=== PATIENT | male | born 1955 | race Caucasian/White ===

== ENCOUNTER 2016-06-27 03:05 | Inpatient (IN) | payer BC ==
[2016-06-27] MEDS ORDERED: DILTIAZEM HCL INJ 25 MG/5 ML VIAL IV ONE ×2 (03:20→04:01)
[2016-06-27] MEDS ORDERED: DILTIAZEM HCL/D5W 125 ML IV PRN ×2 (03:20→07:31)
--- NOTE | 2016-06-27 03:25 | ER Document Report ---
ED General - General Stated Complaint: CHEST PAIN Time Seen by Provider: 06/27/16 03:15 Notes: Patient is a 61-year-old male who approximately 45 minutes ago started having palpitations. He does have a history of atrial fibrillation. He does take Xarelto. He is on metoprolol as well as lisinopril. He denies history of coronary disease. He denies history of cardiac stents. He denies any chest pain. No shortness of breath. No abdominal pain. No fevers. No vomiting. No other complaints at this time. TRAVEL OUTSIDE OF THE [place] IN LAST 30 DAYS: No - Related Data Allergies/Adverse Reactions: pineapple [Pineapple] Allergy (Verified 02/17/14 14:16) warfarin sodium [From Coumadin] Adverse Reaction (Verified 02/17/14 14:16) Home Medications: Current Home Medications Lisinopril 20 mg PO DAILY 06/27/16 [History] Rivaroxaban [Xarelto] 1 tab PO DAILY 06/27/16 [History] Past Medical History - Social History Smoking Status: Unknown if Ever Smoked Frequency of alcohol use: None Drug Abuse: None Family History: Reviewed & Not Pertinent, Other - Review of the history suggests there may be a family history of clotting disorders - Past Medical History Cardiac Medical History: Reports: Hx Atrial Fibrillation, Hx Hypercholesterolemia, Hx Hypertension GI Medical History: Reports: Hx Hepatitis - Hepatitis A Musculoskeltal Medical History: Reports Hx Arthritis Infectious Medical History: Reports: Hx Hepatitis - Hepatitis A Past Surgical History: Reports: Hx Orthopedic Surgery - Bilateral hips, knees, ankles, and elbow, Hx Tonsillectomy - Immunizations Hx Diphtheria, Pertussis, Tetanus Vaccination: Yes Review of Systems - Review of Systems Notes: My Normal Review Basic REVIEW OF SYSTEMS: CONSTITUTIONAL : Denies fever, chills, or sweats. Denies recent illness. EENT: Denies eye, ear, throat, or mouth pain or symptoms. Denies nasal or sinus congestion. CARDIOVASCULAR: Denies chest pain. Has atrial fibrillation with RVR. RESPIRATORY: Denies cough, cold, or chest congestion. Denies shortness of breath, difficulty breathing, or wheezing. GASTROINTESTINAL: Denies abdominal pain. Denies nausea, vomiting, or diarrhea. Denies constipation. Last BM: On Xarelto. MUSCULOSKELETAL: Denies neck or back pain or joint pain or swelling. SKIN: Denies rash or skin lesions. HEMATOLOGIC : On Xarelto NEUROLOGICAL: Denies altered mental status or loss of consciousness. Denies headache. Denies weakness or paralysis or loss of use of either side. Denies problems with gait or speech. Denies sensory or motor loss. ALL OTHER SYSTEMS REVIEWED AND NEGATIVE. Physical Exam - Vital signs Vitals: Resp BP Pulse Ox 18 145/92 H 96 06/27/16 03:40 06/27/16 03:40 06/27/16 03:40 - Notes Notes: General Appearance: Well nourished, alert, cooperative, no acute distress, no obvious discomfort. Vitals: reviewed, See vital signs table. Head: no swelling or tenderness to the head Eyes: PERRL, EOMI, Conjuctiva clear Mouth: No decreasd moisture Neck: Supple, no neck tenderness, No thyromegaly Lungs: No wheezing, No rales, No rhonci, No accessory muscle use, good air exchange bilaterally. Heart: Rapid rate, irregular rhythm, No murmur, no rub. A. fib with RVR on monitor. Abdomen: Normal BS, soft, No rigidity, No abdominal tenderness, No guarding, no rebound, no abdominal masses, no organomegaly Extremities: strength 5/5 in all extremities, good pulses in all extremities, no swelling or tenderness in the extremities, no edema. Skin: warm, dry, appropriate color, no rash Neuro: speech clear, oriented x 3, normal affect, responds appropriately to questions. Course - Vital Signs Vital signs: Temp Pulse Resp BP Pulse Ox 17 108/69 94 06/27/16 05:00 06/27/16 05:00 06/27/16 05:00 - Laboratory Result Diagrams: 06/27/16 03:22 06/27/16 03:22 Laboratory results interpreted by me: 06/27/16 06/27/16 06/27/16 03:22 03:22 04:01 RBC 3.92 L Hgb 7.4 L Hct 24.8 L MCV 63 L MCH 19.0 L MCHC 30.0 L RDW 19.1 H Chloride 111 H Carbon Dioxide 21 L BUN 26 H Glucose 129 H Crossmatch See Detail - EKG Interpretation by Me Additional EKG results interpreted by me: 06/27/16 03:22 It is reviewed and interpreted by me. EKG shows atrial fibrillation with a rate of [address] segment elevation. He does have some ST segment depression in the lateral precordial leads. QRS duration is within normal range. QTc interval is prolonged. Old EKG for comparison is from April 16, 2014 - Transfer of Care Notes: 06/27/16 05:42 Patient's hemoglobin came back low 7.4. His has noticed that he has been more pale-appearing recently. He has not noticed any blood in his stool. He has not had dark stools. Has not been vomiting blood. Has not noticed any blood in his urine. He is unsure exactly why his hemoglobin is low. I did perform a stool guaiac which was negative. Urine is pending. I did give him Cardizem. His heart rate was initially in the 160s and 70s. Cardizem brought his rate down to 140s. I have since given Lopressor and his rate is now in the 110s to 120s. Patient continues to deny any chest pain and continues to look very comfortable and stable. I have spoken with the hospitalist who agrees to admit the patient. Troponin is negative. Dictation of this chart was performed using voice recognition software; therefore, there may be some unintended grammatical errors. Critical Care Note - Critical Care Note Total time excluding time spent on procedures (mins): 40 Comments: Critical care time for this patient not including times spent on procedures was approximately 40 minutes due to frequent re-evaluations as well as management of Cardizem drip and management of his anemia and atrial fibrillation with rapid ventricular response. Discharge - Discharge Clinical Impression: Atrial fibrillation Qualifiers: Atrial fibrillation type: persistent Qualified Code(s): I48.1 - Persistent atrial fibrillation Anemia Qualifiers: Anemia type: unspecified type Qualified Code(s): D64.9 - Anemia, unspecified Condition: Stable Disposition: ADMITTED INPATIENT Admitting Provider: Hospitalist Unit Admitted: [facility], [place]
[2016-06-27 03:33] LABS: ABSOLUTE BASOPHILS # (AUTO) 0.1 10^3/uL (0.0-0.2); ABSOLUTE MONOCYTES (AUTO) 0.7 10^3/uL (0.1-1.4); ABSOLUTE NEUT (AUTO) 2.5 10^3/uL (1.7-8.2)
[2016-06-27 03:38] LABS: ABSOLUTE EOSINOPHILS # (AUTO) 0.3 10^3/uL (0.0-0.6); BASOPHILS % (AUTO) 1.5 % (0-2); EOSINOPHILS % (AUTO) 4.8 % (0-6); HEMATOCRIT 24.8 % (37.9-51.0); HGB HCT DIFFERENCE -2.6; LYMPHOCYTES % (AUTO) 36.2 % (13-45); MONOCYTES % (AUTO) 12.5 % (3-13); RED BLOOD COUNT 3.92 10^6/uL (4.35-5.55); RED CELL DISTRIBUTION WIDTH 19.1 % (11.5-14.0); WHITE BLOOD COUNT 5.7 10^3/uL (4.0-10.5)
[2016-06-27 03:46] LABS: ALANINE AMINOTRANSFERASE 50 U/L (21-72); ALBUMIN 4.1 g/dL (3.5-5.0); ALKALINE PHOSPHATASE 65 U/L (38-126); ANION GAP 12 (5-19); ASPARTATE AMINO TRANSFERASE 40 U/L (17-59); BILIRUBIN,DIRECT 0.4 mg/dL (0.0-0.4); BILIRUBIN,TOTAL 0.5 mg/dL (0.2-1.3); BLOOD UREA NITROGEN 26 mg/dL (7-20); CALCIUM 8.8 mg/dL (8.4-10.2); CARBON DIOXIDE 21 mmol/L (22-30); CHLORIDE 111 mmol/L (98-107); CREATINE KINASE 133 U/L (55-170); CREATININE RESULT 1.11 mg/dL (0.52-1.25); GLUCOSE 129 mg/dL (75-110); POTASSIUM 4.3 mmol/L (3.6-5.0); SODIUM 143.7 mmol/L (137-145); TOTAL PROTEIN 7.2 g/dL (6.3-8.2)
[2016-06-27] MEDS ORDERED: NORMAL SALINE 250 ML IV PRN (03:52)
[2016-06-27 03:55] LABS: HEMOGLOBIN 7.4 g/dL (13.5-17.0)
[2016-06-27 03:56] LABS: MEAN CORPUSCULAR VOLUME 63 fl (80-97)
[2016-06-27 03:57] LABS: ANISOCYTOSIS 2+; HYPOCHROMASIA 3+; MICROCYTOSIS 3+; OVALOCYTES 1+; POIKILOCYTOSIS 1+; POLYCHROMASIA SLIGHT; TARGET CELLS 1+; TEAR DROP CELLS SLIGHT
[2016-06-27 03:58] LABS: PLATELET CLUMPS PRESENT
[2016-06-27 04:00] LABS: TROPONIN I < 0.012 ng/mL
[2016-06-27] MEDS ORDERED: METOPROLOL TARTRATE PF/INJ 5 MG/5 ML SDV IV ONE (05:13)
[2016-06-27] MEDS ORDERED: MAGNESIUM HYDROXIDE SUSP 30 ML UDCUP PO PRN (07:31)
[2016-06-27] MEDS ORDERED: IPRATROPIUM/ALBUTEROL 0.5-2.5 MG/3 ML AMPUL NEB PRN (07:31)
[2016-06-27] MEDS ORDERED: ACETAMINOPHEN 325 MG TABLET PO PRN (07:35)
--- NOTE | 2016-06-27 07:53 | PDOC H&P ---
History of Present Illness Admission Date/PCP: 06/27/16 06:03 PCP [facility] Patient complains of: Palpitations History of Present Illness: JOVAN GRIDER JR is a 61 year old male with known underlying atrial fibrillation, on Xarelto for same, along with underlying hypertension, COPD, arthritis, and hyperlipidemia, who presents to the emergency room for evaluation of sudden onset of palpitations approximately 45 minutes prior to emergency room arrival. brought him to the emergency room. Was noted to be in atrial fibrillation with rapid ventricular response. Rate has been well controlled with combination of Cardizem bolus and drip, along with metoprolol. There has been no chest pain, shortness of breath, abdominal pain, fever chills , nausea or vomiting. No recent change in his medications. He is compliant with his medications. No history of myocardial infarction or congestive heart failure. No history of hematemesis, coffee-ground emesis, hematochezia or melena. Distant history of a negative colonoscopy. Distant history of bleeding peptic ulcer. Currently receiving a unit of packed red blood cells, as ordered by the emergency room physician. Initial diagnoses of atrial fibrillation in February 2014, when he was hospitalized on our service basically overnight. History and physical and discharge summary have been reviewed. Outpatient echocardiogram and stress test recommended, but due to financial considerations, patient did not follow-up with same. Prior to today, he has had no known recurrence of atrial fibrillation with rapid ventricular response. Currently resting quietly, without specific complaints other than being somewhat tired. Patient has been discussed with emergency room physician who evaluated the patient. . Laboratory results are listed in [facility] and are reviewed. X-ray summary results are listed below, with full report(s) reviewed. . EKG reviewed and compared to a tracing from April 162014. Social history/personal habits: . Has children. 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 No use of tobacco, alcohol, or illicit drugs. Allergies/adverse reactions are listed in [facility] and are reviewed. Home medications initially autopopulated into [facility] may not accurately reflect patient's true medications, dosages, and/or frequencies. radiologic technology program director to reconcile medications. Unfortunately, patient not completely certain of all his medications/dosages/ frequencies. REVIEW OF SYSTEMS: Constitutional: No fever or chills. Eyes: Wears glasses. ENT: No swallowing problems or complaints. Partial hearing loss. Pulmonary: No current complaints. Cardiovascular: See history and present illness. Gastrointestinal: No current complaints, including nausea or vomiting. Skin: No current complaints, including rashes. Hematologic: Easy bruising. Neurologic: No current complaints, including numbness or tingling. Musculoskeletal:Joint pain from arthritis. Psychiatric: Mild anxiety and depression; denies suicidal or homicidal ideation. Endocrine: No current complaints, including polyuria. Genitourinary: No current complaints, including dysuria. PHYSICAL EXAMINATION: 6 feet 4 inches tall. 116 kg. BMI 31.1 kg/m. Pulse 121 and slightly irregular. Blood pressure 114/79. 97% saturation on room air. Respirations are 16 and unlabored. Temperature 97.4. Slightly obese otherwise well-developed male appearing approximately his stated age. Pleasant awake alert and cooperative. No obvious distress other than somewhat anxious. Rather talkative gentleman. is present at his side; patient approves. Skin is warm and dry. No grossly obvious evidence of rash in areas of skin examined. No subcutaneous nodules palpated. ENT: Hearing grossly normal to normal conversation. Tongue midline on protrusion pink and slightly tacky. Eyes: No scleral icterus. Pupils equal and reactive to light at 4 mm. [place] conjunctivae. Neck is supple and nontender to gentle active range of motion and palpation. Midline trachea. No palpable thyroid nodule mass enlargement or tenderness. Lymphatic: No palpable cervical or clavicular nodes. Neck and lymphatic exams limited by patient body habitus. Psychiatric: Reasonable insight into acute and chronic medical issues. Oriented to time location and why here. Lungs: Auscultation reveals clear and equal breath sounds bilaterally. No use of accessory respiratory muscles. Cardiovascular: Heart slightly irregular rate and rhythm, without gallop murmur or rub. No carotid or abdominal aortic bruits. No ankle or pedal edema. Palpable dorsalis pedis pulses. Abdomen:soft somewhat obese nontender with positive bowel sounds. Unable to adequately evaluate abdomen for masses or organomegaly due to body habitus. Extremities: Feet are warm and dry. No calf tenderness to compression. No grossly obvious visual evidence of calf swelling. Gentle manipulation of lower extremities fails to reveal any obvious evidence of injury or instability to knees hips or ankles. Neurologic: Moves upper extremities grossly normally. Patellar reflexes absent. Absent Babinski. Light touch is intact at feet. Dorsiflexion and plantarflexion of feet 5 / 5 and symmetric. Past Medical History Cardiac Medical History: Reports: Atrial Fibrillation, DVT - Possible history of same, Hyperlipidema, Hypertension Denies: Congestive Heart Failure, Myocardial Infarction, Pulmonary Embolism Pulmonary Medical History: Reports: Chronic Obstructive Pulmonary Disease (COPD) Denies: Asthma, Sleep Apnea EENT Medical History: Reports: Eyes - Glasses, Ears - Partial hearing loss Denies: Throat Neurological Medical History: Denies: Hemorrhagic CVA, Ischemic CVA, Seizures Endocrine Medical History: Denies: Diabetes Mellitus Type 1, Diabetes Mellitus Type 2, Hyperthyroidism, Hypothyroidism Renal/ Medical History: Reports: None GI Medical History: Reports: Hepatitis - Hepatitis A, Peptic Ulcer Disease - Distant history of bleeding peptic ulcer Denies: Cirrhosis Musculoskeltal Medical History: Reports: Arthritis Skin Medical History: Reports: None Psychiatric Medical History: Reports: Depression - Mild, General Anxiety Disorder - Mild Denies: Alcohol Dependency, Substance Abuse, Tobacco Dependency Hematology: Reports: Other - Easy bruising Infectious Medical History: Denies: Clostridium Difficile, Methicillin-Resistant Staph Aureus Past Surgical History Past Surgical History: Reports: Orthopedic Surgery - Bilateral hips, knees, ankles, and elbow, Tonsillectomy Social History Information Source: Patient, Emergency Med Personnel, [facility] Records Lives with: Spouse/Significant other Smoking Status: Unknown if Ever Smoked Frequency of Alcohol Use: None Drugs: None - Advance Directive Resuscitation Status: Full Code Surrogate healthcare decision maker:: Family History Family History: Reviewed & Not Pertinent, Other - Review of the history suggests there may be a family history of clotting disorders Parental Family History Reviewed: Yes - Parents of cancer Children Family History Reviewed: Yes - Son with history of pulmonary embolus Sibling(s) Family History Reviewed.: Yes - Sister with clotting problems Medication/Allergy Home Medications: Atorvastatin Calcium [Lipitor 80 mg Tablet] 40 mg PO QHS #30 tablet 02/18/14 Metoprolol Succinate [Toprol Xl 50 mg Tab.sr] 50 mg PO DAILY #30 tab.sr.24h 01/21 Lisinopril 20 mg PO DAILY 06/27/16 Rivaroxaban [Xarelto] 20 tab PO DAILY 06/27/16 Allergies/Adverse Reactions: pineapple [Pineapple] Allergy (Verified 02/17/14 14:16) warfarin sodium [From Coumadin] Adverse Reaction (Verified 02/17/14 14:16) Physical Exam Vital Signs: Temp Pulse Resp BP Pulse Ox 98.3 F 19 97/61 L 97 06/27/16 07:17 06/27/16 07:30 06/27/16 07:30 06/27/16 07:30 Intake & Output 06/26/16 06/27/16 06/28/16 00:59 00:59 00:59 Intake Total 300 Balance 300 Results Impressions: Chest X-Ray 06/27/16 04:02 IMPRESSION: Stable chest without acute cardiopulmonary disease. Findings as above. Assessment & Plan - Diagnosis (1) Anemia Qualifiers: Anemia type: iron deficiency Iron deficiency anemia type: unspecified iron deficiency Qualified Code(s): D50.9 - Iron deficiency anemia, unspecified Is this a current diagnosis for this admission?: YesPlan: Receiving 1 unit of packed cells per emergency room physician. Anemia screening labs ordered. Further workup likely as outpatient. (2) Atrial fibrillation with RVR Is this a current diagnosis for this admission?: YesPlan: Continue Cardizem drip; wean from same. Serial troponin . lipid panel. Cardiology consult. I have strongly encouraged patient not to get out of bed without notifying staff , to avoid a fall with injury. Knee high SCDs for DVT prophylaxis. With patient on Xarelto, no need for Lovenox or heparin. Impression and plans were discussed with patient and , both of whom concur. Time spent in evaluation and management of patient: 65 minutes. (3) Anticoagulated Is this a current diagnosis for this admission?: YesPlan: Resume home medications as appropriate once these have been determined and reviewed. (4) Chronic obstructive pulmonary disease (COPD) Qualifiers: COPD type: unspecified COPD Qualified Code(s): J44.9 - Chronic obstructive pulmonary disease, unspecified Is this a current diagnosis for this admission?: YesPlan: No evidence of exacerbation of same. Resume home medications as appropriate once these have been determined and reviewed. (5) HLD (hyperlipidemia) Qualifiers: Hyperlipidemia type: unspecified Qualified Code(s): E78.5 - Hyperlipidemia, unspecified Is this a current diagnosis for this admission?: YesPlan: Lipid panel. Resume home medications as appropriate once these have been determined and reviewed. (6) HTN (hypertension) Qualifiers: Hypertension type: essential hypertension Qualified Code(s): I10 - Essential (primary) hypertension Is this a current diagnosis for this admission?: YesPlan: Resume home medications as appropriate once these have been determined and reviewed. - Inpatient Certification Based on my medical assessment, after consideration of the patient's comorbidities, presenting symptoms, or acuity I expect that the services needed warrant INPATIENT care.: Yes I certify that my determination is in accordance with my understanding of Medicare's requirements for reasonable and necessary INPATIENT services [42 CFR 412.3e].: Yes Medical Necessity: Need Close Monitoring Due to Risk of Patient Decompensation, Need For Continuous Telemetry Monitoring, Risk of Diagnosis Which Will Require Inpatient Eval/Care/Monitoring Post Hospital Care: D/C or Transfer Summary
[2016-06-27 08:26] LABS: FERRITIN 5.82 ng/mL (17.9-464.0)
[2016-06-27 09:41] LABS: PROTHROMBIN TIME 15.5 SEC (11.4-15.4)
[2016-06-27 09:42] LABS: PARTIAL THROMBOPLASTIN TIME 30.4 SEC (23.5-35.8)
[2016-06-27 09:43] LABS: APPEARANCE,URINE CLEAR; BILIRUBIN,URINE NEGATIVE (NEGATIVE); GLUCOSE, URINE NEGATIVE (NEGATIVE); KETONES,URINE NEGATIVE (NEGATIVE); LEUKOCYTE ESTERASE,URINE NEGATIVE (NEGATIVE); NITRITE,URINE NEGATIVE (NEGATIVE); PROTEIN,URINE NEGATIVE (NEGATIVE); URINE SPECIFIC GRAVITY 1.012; UROBILINOGEN,URINE NEGATIVE mg/dL (<2.0)
[2016-06-27 09:50] LABS: CHOLESTEROL 132.33 mg/dL (0-200); Direct HDL 37 mg/dL (>40); TRIGLYCERIDES 53 mg/dL (<150)
[2016-06-27] MEDS ORDERED: RIVAROXABAN 10 MG TABLET PO SCH (10:00)
[2016-06-27] MEDS ORDERED: (PENDING PHARMACY ID) (Rivaroxaban [Xarelto] 1 TAB) PO SCH (10:00)
[2016-06-27] MEDS ORDERED: (PENDING PHARMACY ID) (Lisinopril [Lisinopril] 20 MG) PO SCH (10:00)
[2016-06-27 10:02] LABS: DIRECT LDL 78 mg/dL (<100)
[2016-06-27] MEDS: DOCUSATE SODIUM 100 MG CAPSULE PO SCH ×2 (10:11→17:19)
[2016-06-27] MEDS: METOPROLOL SUCCINATE 50 MG TAB.SR.24H PO SCH (10:14)
[2016-06-27] MEDS: LISINOPRIL 10 MG TABLET PO SCH (10:14)
--- NOTE | 2016-06-27 11:30 | PDOC PROGRESS REPORT ---
Subjective Progress Note for:: 06/27/16 Subjective:: Patient is seen on rounds. He is resting comfortably in bed. He denies any chest pain, shortness of breath or dizziness. He denies any palpitations at the present time. He has converted from atrial fibrillation to normal sinus rhythm. He denies any nausea, vomiting or abdominal pain. He denies any change in bowels or dark or bloody stools. He denies ever having a colonoscopy. No past history of anemia. He denies any myalgias or arthralgias. Rest of the review of systems is unremarkable. Physical Exam Vital Signs: Temp Pulse Resp BP Pulse Ox 98.2 F 56 L 16 118/67 96 06/27/16 07:53 06/27/16 07:53 06/27/16 07:53 06/27/16 07:53 06/27/16 07:53 Intake & Output 06/26/16 06/27/16 06/28/16 06:59 06:59 06:59 Intake Total 0 Balance 0 Weight 116.7 kg General appearance: PRESENT: no acute distress, obese, well-developed, well- nourished Head exam: PRESENT: atraumatic, normocephalic Eye exam: PRESENT: conjunctiva pale, EOMI, PERRLA. ABSENT: scleral icterus Ear exam: PRESENT: normal external ear exam Mouth exam: PRESENT: moist, tongue midline Neck exam: ABSENT: carotid bruit, JVD, lymphadenopathy, thyromegaly Respiratory exam: PRESENT: clear to auscultation florin. ABSENT: rales, rhonchi, wheezes Cardiovascular exam: PRESENT: RRR. ABSENT: diastolic murmur, rubs, systolic murmur Pulses: PRESENT: normal dorsalis pedis pul Vascular exam: PRESENT: normal capillary refill GI/Abdominal exam: PRESENT: normal bowel sounds, soft. ABSENT: distended, guarding, mass, organolmegaly, rebound, tenderness Rectal exam: PRESENT: deferred Extremities exam: PRESENT: full ROM. ABSENT: calf tenderness, clubbing, pedal edema Neurological exam: PRESENT: alert, awake, oriented to person, oriented to place , oriented to time, oriented to situation, CN II-XII grossly intact. ABSENT: motor sensory deficit Psychiatric exam: PRESENT: appropriate affect, normal mood. ABSENT: homicidal ideation, suicidal ideation Skin exam: PRESENT: dry, intact, warm. ABSENT: cyanosis, rash Results Laboratory Results: 06/27/16 06/27/16 09:00 09:30 Triglycerides 53 Cholesterol 132.33 LDL Cholesterol Direct 78 VLDL Cholesterol 11.0 HDL Cholesterol 37 L Urine Color STRAW Urine Appearance CLEAR Urine pH 6.0 Ur Specific [place] 1.012 Urine Protein NEGATIVE Urine Glucose (UA) NEGATIVE Urine Ketones NEGATIVE Urine Blood NEGATIVE Urine Nitrite NEGATIVE Ur Leukocyte Esterase NEGATIVE Urine WBC (Auto) 1 06/27/16 09:30 Troponin I 0.055 Impressions: Chest X-Ray 06/27/16 04:02 IMPRESSION: Stable chest without acute cardiopulmonary disease. Findings as above. Assessment & Plan - Diagnosis (1) Atrial fibrillation with RVR Is this a current diagnosis for this admission?: YesPlan: Now normal sinus rhythm with HR of 60's. IV diltiazem off. Continue metoprolol. Will hold xarelto due to anemia for now (2) Atrial fibrillation Qualifiers: Atrial fibrillation type: persistent Qualified Code(s): I48.1 - Persistent atrial fibrillation (3) Anticoagulated Is this a current diagnosis for this admission?: Yes (4) Chronic obstructive pulmonary disease (COPD) Qualifiers: COPD type: unspecified COPD Qualified Code(s): J44.9 - Chronic obstructive pulmonary disease, unspecified Is this a current diagnosis for this admission?: YesPlan: Continue inhalers (5) HLD (hyperlipidemia) Qualifiers: Hyperlipidemia type: unspecified Qualified Code(s): E78.5 - Hyperlipidemia, unspecified Is this a current diagnosis for this admission?: YesPlan: Statins (6) HTN (hypertension) Qualifiers: Hypertension type: essential hypertension Qualified Code(s): I10 - Essential (primary) hypertension Is this a current diagnosis for this admission?: YesPlan: Continue current medications patient is normotensive (7) Anemia Qualifiers: Anemia type: iron deficiency Iron deficiency anemia type: unspecified iron deficiency Qualified Code(s): D50.9 - Iron deficiency anemia, unspecified Is this a current diagnosis for this admission?: YesPlan: Patient was transfused 2 units of PRBCs, iron studies pending. No signs of active bleeding. No prior colonoscopy. Will hold xarelto and consult hematology. Will need GI consult as an outpatient - Time Time Spent with patient: 25-34 minutes Critical Time spent with patient: 15-24 minutes Medications reviewed and adjusted accordingly: Yes
[2016-06-27 15:58] LABS: ABSOLUTE BASOPHILS # (AUTO) 0.1 10^3/uL (0.0-0.2); ABSOLUTE EOSINOPHILS # (AUTO) 0.1 10^3/uL (0.0-0.6); ABSOLUTE LYMPHOCYTES (AUTO) 1.5 10^3/uL (0.5-4.7); ABSOLUTE MONOCYTES (AUTO) 0.8 10^3/uL (0.1-1.4); ABSOLUTE NEUT (AUTO) 3.3 10^3/uL (1.7-8.2); BASOPHILS % (AUTO) 1.3 % (0-2); EOSINOPHILS % (AUTO) 2.4 % (0-6); HEMATOCRIT 27.7 % (37.9-51.0); HEMOGLOBIN 8.3 g/dL (13.5-17.0); HGB HCT DIFFERENCE -2.8; MEAN CORPUSCULAR HEMOGLOBIN 19.8 pg (27.0-33.4); MEAN CORPUSCULAR HGB CONC 29.9 g/dL (32.0-36.0); MEAN CORPUSCULAR VOLUME 66 fl (80-97); MONOCYTES % (AUTO) 13.8 % (3-13); RED BLOOD COUNT 4.17 10^6/uL (4.35-5.55); RED CELL DISTRIBUTION WIDTH 21.6 % (11.5-14.0); SEGMENTED NEUTROPHILS % (AUTO) 56.5 % (42-78); WHITE BLOOD COUNT 5.8 10^3/uL (4.0-10.5)
--- NOTE | 2016-06-27 16:57 | PDOC CONSULTATION ---
Consultation Consult Date: 06/27/16 Attending physician:: HECTOR HOLLINS Consult reason:: Atrial fibrillation, chest pain History of Present Illness Admission Date/PCP: 06/27/16 07:32 Patient complains of: Chest pain and irregular heartbeat History of Present Illness: JOVAN GRIDER JR is a 61 year old male with known underlying paroxysmal atrial fibrillation, on Xarelto for same, along with underlying hypertension, COPD, arthritis, and hyperlipidemia who presents to the emergency room for evaluation of sudden onset of palpitation approximately 45 minutes prior to emergency room arrival. brought him to the emergency room. Patient has also noted some chest tightness along with that. Chest discomfort resolved quickly in the ER. He was noted to have significant ST segment depression on EKG. Patient also noted to be anemic. Was noted to be in atrial fibrillation with rapid ventricular response. Rate has been well controlled with combination of Cardizem bolus and drip, along with metoprolol. No history of hematemesis, coffee-ground emesis, hematochezia or melena. Distant history of a negative colonoscopy. Distant history of bleeding peptic ulcer. Currently receiving a unit of packed red blood cells, as ordered by the emergency room physician. Initial diagnoses of atrial fibrillation in February 2014, when he was hospitalized [facility] basically overnight. Outpatient echocardiogram and stress test recommended, but due to financial considerations, patient did not follow-up with same. Prior to today, he has had no recurrence of atrial fibrillation with rapid ventricular response. History was confirmed, supplemented and agreed upon. Past Medical History Cardiac Medical History: Reports: Atrial Fibrillation, DVT - Possible history of same, Hyperlipidema, Hypertension Denies: Congestive Heart Failure, Myocardial Infarction, Pulmonary Embolism Pulmonary Medical History: Reports: Chronic Obstructive Pulmonary Disease (COPD) Denies: Asthma, Sleep Apnea EENT Medical History: Reports: Eyes - Glasses, Ears - Partial hearing loss, Other - Easy bruising Denies: Throat Neurological Medical History: Denies: Hemorrhagic CVA, Ischemic CVA, Seizures Endocrine Medical History: Denies: Diabetes Mellitus Type 1, Diabetes Mellitus Type 2, Hyperthyroidism, Hypothyroidism Renal/ Medical History: Reports: None GI Medical History: Reports: Hepatitis - Hepatitis A, Peptic Ulcer Disease - Distant history of bleeding peptic ulcer Denies: Cirrhosis Musculoskeltal Medical History: Reports: Arthritis Skin Medical History: Reports: None Psychiatric Medical History: Reports: Depression - Mild, General Anxiety Disorder - Mild Denies: Alcohol Dependency, Substance Abuse, Tobacco Dependency Hematology: Reports: Other - Easy bruising Infectious Medical History: Denies: Clostridium Difficile, Hepatitis B, Hepatitis C, Methicillin- Resistant Staph Aureus Past Surgical History Past Surgical History: Reports: Orthopedic Surgery - Bilateral hips, knees, ankles, and elbow, Tonsillectomy Social History Information Source: Patient Lives with: Spouse/Significant other Smoking Status: Unknown if Ever Smoked Last Time Smoked: 15 years Frequency of Alcohol Use: None Hx Recreational Drug Use: No Drugs: None Hx Prescription Drug Abuse: No - Advance Directive Resuscitation Status: Full Code Surrogate healthcare decision maker:: Currently full code. is a surrogate decision maker Family History Family History: Hypertension, Other - Review of the history suggests there may be a family history of clotting disorders Parental Family History Reviewed: Yes Children Family History Reviewed: Yes Sibling(s) Family History Reviewed.: Yes Medication/Allergy Home Medications: Atorvastatin Calcium [Lipitor 80 mg Tablet] 40 mg PO QHS #30 tablet 02/18/14 Metoprolol Succinate [Toprol Xl 50 mg Tab.sr] 50 mg PO DAILY #30 tab.sr.24h 01/21 Lisinopril 20 mg PO DAILY 06/27/16 Rivaroxaban [Xarelto] 20 tab PO DAILY 06/27/16 Allergies/Adverse Reactions: pineapple [Pineapple] Allergy (Verified 02/17/14 14:16) warfarin sodium [From Coumadin] Adverse Reaction (Verified 02/17/14 14:16) Review of Systems Review of Systems: Please see history of present illness and past medical history as wall. Constitutional: No fever or chills reported. Head : No recent chronic headaches, recent head injury. Eyes: No recent eye pain, diplopia, redness, discharge, acute visual changes. Ears: No recent chronic ear pain, acute hearing loss, ear discharge. Oral cavity: No recent ulcerations, bleeding, oral cavity discomfort. Neck: No recent acute neck pain reported. Hematologic: No recent easy bruising or bleeding or hematologic malignancy reported. History of blood clot in the leg. Lymphatic: No recent lymphatic malignancy, chronic lymphadenopathy reported yet Cardiovascular system review: See history of present illness. History of paroxysmal atrial fibrillation. Respiratory system review: No recent chronic cough, hemoptysis, blood clots in the lungs reported. Mild Shortness of breath on exertion Gastrointestinal system review: Negative for any recent acute or chronic abdominal pain, hematemesis, melena, recent change in bowel habits. Genitourinary system review: No recent acute or chronic hematuria, flank pain, UTI etc. reported. Skin system review: Negative for any recent abnormal bruising, no rash, no pruritus reported. Neurologic: No prior history of strokes, mini strokes, seizure disorder. Psychologic: No history of major psychosis or major depression reported. Musculoskeletal: Minor aches and pains reported. No acute joint swelling reported. History of multiple orthopedic surgery, hip reconstruction. Endocrine: No recent polyuria, polydipsia, recent heat or cold intolerance. Physical Exam Vital Signs: Temp Pulse Resp BP Pulse Ox 98.3 F 64 22 H 115/75 97 06/27/16 14:19 06/27/16 14:19 06/27/16 14:19 06/27/16 14:19 06/27/16 14:19 Intake & Output 06/26/16 06/27/16 06/28/16 06:59 06:59 06:59 Intake Total 350 Balance 350 Weight 116.7 kg Exam: GENERAL: well-nourished and in no acute distress. Alert and oriented x3 HEAD: Atraumatic, normocephalic. EYES: Pupils equal round and reactive to light, extraocular movements intact, sclera anicteric, conjunctiva are normal. ENT: TMs normal, nares patent, oropharynx clear without exudates. Moist mucous membranes. No oral ulcerations or bleeding gums noted NECK: supple without lymphadenopathy. Trachea is central. No cervical or axillary lymphadenopathy noted. Carotids are 2+, JVD WNL LUNGS: Respiration seems nonlabored, no significant accessory muscle action noted. Breath sounds clear to auscultation bilaterally and equal noted. No wheezes rales or rhonchi noted. No significant dullness noted on percussion. CHEST: Palpation of the chest wall shows no significant chest wall tenderness. No other significant abnormalities noted. HEART: [place] CONTACT LENS FITTER, No PSH, 1/6 JEFFERY aortic area, 1/6 root systolic murmur mitral area, no rubs, no gallops. ABDOMEN: Soft, no significant tenderness appreciated, normoactive bowel sounds. No guarding, no rebound. No rigidity noted . No masses appreciated. EXTREMITIES: Pedal pulses are 1-2+, no calf tenderness noted. No clubbing or cyanosis.trace to 1+ pedal edema noted NEUROLOGICAL: Focused neurological exam showed no significant neurologic deficit. Normal speech, no focal weakness appreciated. PSYCH: Normal mood, normal affect. Judgment and insight within normal limits. SKIN: No significant ecchymosis, rash, ulcerations or signs of pruritus noted. MUSCULOSKELETAL EXAM: No significant joint swelling noted. Results Laboratory Results: 06/27/16 15:25 06/27/16 06/27/16 06/27/16 09:00 09:30 15:25 WBC 5.8 RBC 4.17 L Hgb 8.3 L Hct 27.7 L MCV 66 L MCH 19.8 L MCHC 29.9 L RDW 21.6 H Plt Count 193 Seg Neutrophils % 56.5 Lymphocytes % 26.0 Monocytes % 13.8 H Eosinophils % 2.4 Basophils % 1.3 Absolute Neutrophils 3.3 Absolute Lymphocytes 1.5 Absolute Monocytes 0.8 Absolute Eosinophils 0.1 Absolute Basophils 0.1 Triglycerides 53 Cholesterol 132.33 LDL Cholesterol Direct 78 VLDL Cholesterol 11.0 HDL Cholesterol 37 L Urine Color STRAW Urine Appearance CLEAR Urine pH 6.0 Ur Specific [place] 1.012 Urine Protein NEGATIVE Urine Glucose (UA) NEGATIVE Urine Ketones NEGATIVE Urine Blood NEGATIVE Urine Nitrite NEGATIVE Ur Leukocyte Esterase NEGATIVE Urine WBC (Auto) 1 06/27/16 06/27/16 09:30 15:12 Troponin I 0.055 0.056 EKG Comments: Initial 12-lead EKG showed sinus rhythm with rapid ventricular response and ST segment depression. EKG this morning shows low atrial rhythm, no acute ST-T wave changes noted Impressions: Chest X-Ray 06/27/16 04:02 IMPRESSION: Stable chest without acute cardiopulmonary disease. Findings as above. Assessment & Plan - Diagnosis (1) Atrial fibrillation with RVR Is this a current diagnosis for this admission?: Yes (2) Chest pain Qualifiers: Chest pain type: unspecified Qualified Code(s): R07.9 - Chest pain, unspecified Is this a current diagnosis for this admission?: Yes (3) Anticoagulated Is this a current diagnosis for this admission?: Yes (4) Chronic obstructive pulmonary disease (COPD) Qualifiers: COPD type: unspecified COPD Qualified Code(s): J44.9 - Chronic obstructive pulmonary disease, unspecified Is this a current diagnosis for this admission?: Yes (5) HLD (hyperlipidemia) Qualifiers: Hyperlipidemia type: unspecified Qualified Code(s): E78.5 - Hyperlipidemia, unspecified Is this a current diagnosis for this admission?: Yes (6) HTN (hypertension) Qualifiers: Hypertension type: essential hypertension Qualified Code(s): I10 - Essential (primary) hypertension Is this a current diagnosis for this admission?: Yes - Notes Notes: Atrial fibrillation with rapid ventricular response: Currently patient in sinus rhythm. Continue metoprolol succinate. At this point will recommend rate control and chronic anticoagulation if no contraindication. Patient's chads score is just 1. patient on Xarelto for other reason such as DVT. Continue with that. Chest discomfort: Patient has ST segment depression most likely related to increased heart rate. However patient has been advised to have a stress test in the past therefore will go ahead and schedule this. Further risk stratification I will also schedule patient for a 2D echocardiogram. Chronic anticoagulation: Continue with Xarelto therapy. COPD: Currently stable. Dyslipidemia: Lipid panel was noted to be satisfactory. Hypertension: Reasonably well controlled. Blood pressure goal in this patient is 135/85 or less. This was discussed with the patient. Currently blood pressure under reasonable control. Better medication for this patient are YANNICK inhibitor/ARB/beta coleman etc. discussed side effects of uncontrolled hypertension and also severe hypotension. - Time Time Spent: 30 to 50 Minutes - CODE STATUS was discussed, patient remains full code. Surrogate decision-maker unchanged. Multiple medical problems were addressed. More than 50% of the time spent coordinating care, discussing management plans with involved caregivers. Management plans discussed with involved personnels. Medical decision making was of moderate to high complexity , patient's has multiple comorbidities. Medications reviewed and adjusted accordingly: Yes
--- NOTE | 2016-06-27 17:11 | EKG REPORT ---
SEVERITY:- ABNORMAL ECG - ATRIAL FIBRILLATION WITH RAPID V-RATE REPOLARIZATION ABNORMALITY, PROB RATE RELATED : Confirmed by: Janelle Bell MD 27-Jun-2016 17:10:39
--- NOTE | 2016-06-27 17:11 | EKG REPORT ---
SEVERITY:- BORDERLINE ECG - SINUS OR ECTOPIC ATRIAL RHYTHM SHORT [place] INTERVAL, ACCELERATED AV CONDUCTION : Confirmed by: Janelle Bell MD 27-Jun-2016 17:10:32
[2016-06-27] MEDS: PANTOPRAZOLE SODIUM 40 MG VIAL IV SCH (21:17)
[2016-06-27] MEDS ORDERED: ATORVASTATIN CALCIUM 80 MG TABLET PO SCH (22:00)
[2016-06-28 05:42] LABS: ABSOLUTE BASOPHILS # (AUTO) 0.1 10^3/uL (0.0-0.2); ABSOLUTE EOSINOPHILS # (AUTO) 0.3 10^3/uL (0.0-0.6); ABSOLUTE LYMPHOCYTES (AUTO) 1.3 10^3/uL (0.5-4.7); ABSOLUTE MONOCYTES (AUTO) 0.7 10^3/uL (0.1-1.4); ABSOLUTE NEUT (AUTO) 2.9 10^3/uL (1.7-8.2); BASOPHILS % (AUTO) 1.7 % (0-2); EOSINOPHILS % (AUTO) 5.6 % (0-6); HEMATOCRIT 27.1 % (37.9-51.0); HEMOGLOBIN 8.3 g/dL (13.5-17.0); HGB HCT DIFFERENCE -2.2; LYMPHOCYTES % (AUTO) 25.3 % (13-45); MEAN CORPUSCULAR HGB CONC 30.5 g/dL (32.0-36.0); MEAN CORPUSCULAR VOLUME 66 fl (80-97); MONOCYTES % (AUTO) 13.3 % (3-13); RED BLOOD COUNT 4.13 10^6/uL (4.35-5.55); RED CELL DISTRIBUTION WIDTH 21.1 % (11.5-14.0); SEGMENTED NEUTROPHILS % (AUTO) 54.1 % (42-78); WHITE BLOOD COUNT 5.3 10^3/uL (4.0-10.5)
[2016-06-28] MEDS ORDERED: NORMAL SALINE 250 ML IV PRN ×2 (07:37)
--- NOTE | 2016-06-28 07:43 | PDOC CONSULTATION ---
Consultation Consult Date: 06/28/16 Attending physician:: MALIK RANGEL Consult reason:: Iron deficiency anemia, chronic need for anticoagulation History of Present Illness Admission Date/PCP: 06/27/16 07:32 Patient complains of: Weakness, palpitations History of Present Illness: 61-year-old male with known history of A. fib, on chronic anticoagulation with Xarelto, he comes in with weakness, palpitations, was found to be in rapid A. fib, he was placed on diltiazem drip, but upon presentation he was found to have a hemoglobin of 7, recently had iron studies drawn which indicated a ferritin of only 5. He denies any hematochezia or hematemesis or black tarry stool. However, he does have a remote history of ulcer back when he was in his 20s, and he remembers that would be the last time he ever had an endoscopy. He was given 2 units of packed red blood cells, his hemoglobin is improved in the 8 range. We have recommended for him to get IV iron tomorrow and this is ordered. He is getting a stress test today. Past Medical History Cardiac Medical History: Reports: Atrial Fibrillation, Hyperlipidema, Hypertension Denies: Congestive Heart Failure, Myocardial Infarction, Pulmonary Embolism Pulmonary Medical History: Reports: Chronic Obstructive Pulmonary Disease (COPD) Denies: Asthma, Sleep Apnea EENT Medical History: Reports: Eyes - Glasses, Ears - Partial hearing loss, Other - Easy bruising Denies: Throat Neurological Medical History: Denies: Hemorrhagic CVA, Ischemic CVA, Seizures Endocrine Medical History: Denies: Diabetes Mellitus Type 1, Diabetes Mellitus Type 2, Hyperthyroidism, Hypothyroidism Renal/ Medical History: Reports: None GI Medical History: Reports: Hepatitis - Hepatitis A, Peptic Ulcer Disease - Distant history of bleeding peptic ulcer Denies: Cirrhosis Musculoskeltal Medical History: Reports: Arthritis Skin Medical History: Reports: None Psychiatric Medical History: Reports: Depression - Mild, General Anxiety Disorder - Mild Denies: Alcohol Dependency, Substance Abuse, Tobacco Dependency Hematology: Reports: Other - Easy bruising Infectious Medical History: Denies: Clostridium Difficile, Hepatitis B, Hepatitis C, Methicillin- Resistant Staph Aureus Past Surgical History Past Surgical History: Reports: Orthopedic Surgery - Bilateral hips, knees, ankles, and elbow, Tonsillectomy Social History Information Source: Patient Lives with: Spouse/Significant other Smoking Status: Unknown if Ever Smoked Last Time Smoked: 15 years Frequency of Alcohol Use: None Hx Recreational Drug Use: No Drugs: None Hx Prescription Drug Abuse: No - Advance Directive Resuscitation Status: Full Code Family History Family History: Reviewed & Not Pertinent, Other - Review of the history suggests there may be a family history of clotting disorders Parental Family History Reviewed: Yes Children Family History Reviewed: Yes Sibling(s) Family History Reviewed.: Yes Medication/Allergy Home Medications: Atorvastatin Calcium [Lipitor 80 mg Tablet] 40 mg PO QHS #30 tablet 02/18/14 Metoprolol Succinate [Toprol Xl 50 mg Tab.sr] 50 mg PO DAILY #30 tab.sr.24h 01/21 Lisinopril 20 mg PO DAILY 06/27/16 Rivaroxaban [Xarelto] 20 tab PO DAILY 06/27/16 Allergies/Adverse Reactions: pineapple [Pineapple] Allergy (Verified 02/17/14 14:16) warfarin sodium [From Coumadin] Adverse Reaction (Verified 02/17/14 14:16) Review of Systems Constitutional: ABSENT: chills, fever(s), headache(s), weight gain, weight loss Eyes: ABSENT: visual disturbances Ears: ABSENT: hearing changes Cardiovascular: ABSENT: chest pain, dyspnea on exertion, edema, orthropnea, palpitations Respiratory: ABSENT: cough, hemoptysis Gastrointestinal: ABSENT: abdominal pain, constipation, diarrhea, hematemesis, hematochezia, nausea, vomiting Genitourinary: ABSENT: dysuria, hematuria Musculoskeletal: ABSENT: joint swelling Integumentary: ABSENT: rash, wounds Neurological: ABSENT: abnormal gait, abnormal speech, confusion, dizziness, focal weakness, syncope Psychiatric: ABSENT: anxiety, depression, homidical ideation, suicidal ideation Endocrine: ABSENT: cold intolerance, heat intolerance, polydipsia, polyuria Hematologic/Lymphatic: ABSENT: easy bleeding, easy bruising Physical Exam Vital Signs: Temp Pulse Resp BP Pulse Ox 98.2 F 67 14 126/66 H 94 06/28/16 03:56 06/28/16 03:56 06/28/16 03:56 06/28/16 03:56 06/28/16 03:56 Intake & Output 06/27/16 06/28/16 06/29/16 06:59 06:59 06:59 Intake Total 1924 Balance 192 Weight 116.7 kg General appearance: PRESENT: no acute distress, well-developed, well-nourished Head exam: PRESENT: atraumatic, normocephalic Eye exam: PRESENT: conjunctiva pink, EOMI, PERRLA. ABSENT: scleral icterus Ear exam: PRESENT: normal external ear exam Mouth exam: PRESENT: moist, tongue midline Neck exam: ABSENT: carotid bruit, JVD, lymphadenopathy, thyromegaly Respiratory exam: PRESENT: clear to auscultation florin. ABSENT: rales, rhonchi, wheezes Cardiovascular exam: PRESENT: RRR. ABSENT: diastolic murmur, rubs, systolic murmur Pulses: PRESENT: normal dorsalis pedis pul Vascular exam: PRESENT: normal capillary refill GI/Abdominal exam: PRESENT: normal bowel sounds, soft. ABSENT: distended, guarding, mass, organolmegaly, rebound, tenderness Rectal exam: PRESENT: deferred Extremities exam: PRESENT: full ROM. ABSENT: calf tenderness, clubbing, pedal edema Neurological exam: PRESENT: alert, awake, oriented to person, oriented to place , oriented to time, oriented to situation, CN II-XII grossly intact. ABSENT: motor sensory deficit Psychiatric exam: PRESENT: appropriate affect, normal mood. ABSENT: homicidal ideation, suicidal ideation Skin exam: PRESENT: dry, intact, warm. ABSENT: cyanosis, rash Results Laboratory Results: 06/28/16 04:41 06/27/16 06/27/16 06/27/16 09:00 09:30 15:25 WBC 5.8 RBC 4.17 L Hgb 8.3 L Hct 27.7 L MCV 66 L MCH 19.8 L MCHC 29.9 L RDW 21.6 H Plt Count 193 Seg Neutrophils % 56.5 Lymphocytes % 26.0 Monocytes % 13.8 H Eosinophils % 2.4 Basophils % 1.3 Absolute Neutrophils 3.3 Absolute Lymphocytes 1.5 Absolute Monocytes 0.8 Absolute Eosinophils 0.1 Absolute Basophils 0.1 Triglycerides 53 Cholesterol 132.33 LDL Cholesterol Direct 78 VLDL Cholesterol 11.0 HDL Cholesterol 37 L Urine Color STRAW Urine Appearance CLEAR Urine pH 6.0 Ur Specific [place] 1.012 Urine Protein NEGATIVE Urine Glucose (UA) NEGATIVE Urine Ketones NEGATIVE Urine Blood NEGATIVE Urine Nitrite NEGATIVE Ur Leukocyte Esterase NEGATIVE Urine WBC (Auto) 1 06/28/16 04:41 WBC 5.3 RBC 4.13 L Hgb 8.3 L Hct 27.1 L MCV 66 L MCH 20.0 L MCHC 30.5 L RDW 21.1 H Plt Count 183 Seg Neutrophils % 54.1 Lymphocytes % 25.3 Monocytes % 13.3 H Eosinophils % 5.6 Basophils % 1.7 Absolute Neutrophils 2.9 Absolute Lymphocytes 1.3 Absolute Monocytes 0.7 Absolute Eosinophils 0.3 Absolute Basophils 0.1 Triglycerides Cholesterol LDL Cholesterol Direct VLDL Cholesterol HDL Cholesterol Urine Color Urine Appearance Urine pH Ur Specific [place] Urine Protein Urine Glucose (UA) Urine Ketones Urine Blood Urine Nitrite Ur Leukocyte Esterase Urine WBC (Auto) 06/27/16 06/27/16 09:30 15:12 Troponin I 0.055 0.056 Impressions: Chest X-Ray 06/27/16 04:02 IMPRESSION: Stable chest without acute cardiopulmonary disease. Findings as above. Assessment & Plan - Diagnosis (1) Anemia Qualifiers: Anemia type: iron deficiency Iron deficiency anemia type: other iron deficiency Qualified Code(s): D50.8 - Other iron deficiency anemias Is this a current diagnosis for this admission?: YesPlan: Patient with iron deficiency anemia, unknown cause could be blood loss but Hemoccult is negative, he certainly does need EGD and colonoscopy given his history of ulcer disease as well as the fact that he has not had endoscopies for 20+ years. We will treat him with IV iron today, we also recommend that he get 1 more unit of packed red blood cells to try and get him into the 9 range prior to discharge. 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 If not we may have to schedule this as an outpatient but this would be suboptimal. (2) Atrial fibrillation with RVR Is this a current diagnosis for this admission?: YesPlan: At present he has his Xarelto held, I would recommend holding it until we have endoscopies ruling out active GI bleed. Although there is a risk of stroke, I believe his risk of bleed would be much higher. - Time Time Spent: Greater than 70 Minutes Critical Time spent with patient: 35 or more minutes Disposition: Of note, his son is 41 years old with the same name, also has history of A. fib as well as recurrent thrombosis and iron deficiency, so please make note that his date of is different and we will need to see both of them as an outpatient in the future. - Inpatient Certification Based on my medical assessment, after consideration of the patient's comorbidities, presenting symptoms, or acuity I expect that the services needed warrant INPATIENT care.: Yes I certify that my determination is in accordance with my understanding of Medicare's requirements for reasonable and necessary INPATIENT services [42 CFR 412.3e].: Yes Medical Necessity: Failure to Improve With Outpatient Therapy, Need For Continuous Telemetry Monitoring, Need for Surgery
[2016-06-28] MEDS ORDERED: FERUMOXYTOL 510 MG in NORMAL SALINE 100 ML IV ONE (09:00)
[2016-06-28] MEDS ORDERED: DEXTROSE 50%-WATER 25 GM/50 ML DISP.SYRIN IV PRN ×2 (09:28)
[2016-06-28] MEDS ORDERED: DEXTROSE 40% GEL 15 GM TUBE PO PRN ×2 (09:28)
[2016-06-28] MEDS ORDERED: GLUCAGON,HUMAN RECOMB 1 MG INJ SUBCUT PRN (09:28)
[2016-06-28] MEDS ORDERED: NORMAL SALINE 1000 ML 1,000 ML IV PRN (09:30)
[2016-06-28] MEDS ORDERED: MAGNESIUM HYDROXIDE SUSP 30 ML UDCUP PO PRN (10:34)
[2016-06-28] MEDS ORDERED: PEG 3350/NA SULF,BICARB,CL/KCL 4000 ML PO ONE (11:00)
[2016-06-28] MEDS: LISINOPRIL 10 MG TABLET PO SCH (11:48)
[2016-06-28] MEDS: METOPROLOL SUCCINATE 50 MG TAB.SR.24H PO SCH (11:48)
[2016-06-28] MEDS: PANTOPRAZOLE SODIUM 40 MG VIAL IV SCH ×2 (11:49→21:31)
[2016-06-28] MEDS: DOCUSATE SODIUM 100 MG CAPSULE PO SCH ×2 (11:50→18:58)
[2016-06-28] MEDS ORDERED: REGADENOSON INJ 0.4 MG/5 ML DISP.SYRIN IV ONE (11:53)
[2016-06-28] MEDS ORDERED: AMINOPHYLLINE INJ/PF 250 MG/10 ML SDV IV ONE (11:53)
--- NOTE | 2016-06-28 13:24 | PDOC PROGRESS REPORT ---
Subjective Progress Note for:: 06/28/16 Subjective:: Patient is seen on rounds. He is resting comfortably in bed. He denies any chest pain, shortness of breath or dizziness. He denies any palpitations at the present time. He has remained in normal sinus rhythm. He denies any nausea, vomiting or abdominal pain. He denies any change in bowels or dark or bloody stools. He denies ever having a colonoscopy. No past history of anemia. He denies any myalgias or arthralgias. Rest of the review of systems is unremarkable. Physical Exam Vital Signs: Temp Pulse Resp BP Pulse Ox 97.8 F 69 17 149/102 H 98 06/28/16 12:58 06/28/16 12:58 06/28/16 12:58 06/28/16 12:58 06/28/16 12:58 Intake & Output 06/27/16 06/28/16 06/29/16 06:59 06:59 06:59 Intake Total 1925 0 Balance 1925 0 Weight 116.7 kg General appearance: PRESENT: no acute distress, well-developed, well-nourished Head exam: PRESENT: atraumatic, normocephalic Eye exam: PRESENT: conjunctiva pale, PERRLA Ear exam: PRESENT: normal external ear exam Mouth exam: PRESENT: moist, tongue midline Neck exam: ABSENT: carotid bruit, JVD, lymphadenopathy, thyromegaly Respiratory exam: PRESENT: clear to auscultation florin. ABSENT: rales, rhonchi, wheezes Cardiovascular exam: PRESENT: RRR. ABSENT: diastolic murmur, rubs, systolic murmur Pulses: PRESENT: normal dorsalis pedis pul Vascular exam: PRESENT: normal capillary refill GI/Abdominal exam: PRESENT: normal bowel sounds, soft. ABSENT: distended, guarding, mass, organolmegaly, rebound, tenderness Rectal exam: PRESENT: deferred Extremities exam: PRESENT: full ROM. ABSENT: calf tenderness, clubbing, pedal edema Musculoskeletal exam: PRESENT: ambulatory, full ROM, normal inspection Neurological exam: PRESENT: alert, awake, oriented to person, oriented to place , oriented to time, oriented to situation, CN II-XII grossly intact. ABSENT: motor sensory deficit Skin exam: PRESENT: dry, intact, warm. ABSENT: cyanosis, rash Results Laboratory Results: 06/28/16 04:41 06/27/16 06/28/16 15:25 04:41 WBC 5.8 5.3 RBC 4.17 L 4.13 L Hgb 8.3 L 8.3 L Hct 27.7 L 27.1 L MCV 66 L 66 L MCH 19.8 L 20.0 L MCHC 29.9 L 30.5 L RDW 21.6 H 21.1 H Plt Count 193 183 Seg Neutrophils % 56.5 54.1 Lymphocytes % 26.0 25.3 Monocytes % 13.8 H 13.3 H Eosinophils % 2.4 5.6 Basophils % 1.3 1.7 Absolute Neutrophils 3.3 2.9 Absolute Lymphocytes 1.5 1.3 Absolute Monocytes 0.8 0.7 Absolute Eosinophils 0.1 0.3 Absolute Basophils 0.1 0.1 06/27/16 06/27/16 09:30 15:12 Troponin I 0.055 0.056 Impressions: Chest X-Ray 06/27/16 04:02 IMPRESSION: Stable chest without acute cardiopulmonary disease. Findings as above. Assessment & Plan - Diagnosis (1) Atrial fibrillation with RVR Is this a current diagnosis for this admission?: YesPlan: Continues in normal sinus rhythm. Will continue to hold xarelto due to anemia, possible GI bleeding (2) Anticoagulated Is this a current diagnosis for this admission?: YesPlan: Will hold until after EGD/colonoscopy complete (3) Chronic obstructive pulmonary disease (COPD) Qualifiers: COPD type: unspecified COPD Qualified Code(s): J44.9 - Chronic obstructive pulmonary disease, unspecified Is this a current diagnosis for this admission?: YesPlan: Continue inhalers (4) HLD (hyperlipidemia) Qualifiers: Hyperlipidemia type: unspecified Qualified Code(s): E78.5 - Hyperlipidemia, unspecified Is this a current diagnosis for this admission?: YesPlan: Statins (5) HTN (hypertension) Qualifiers: Hypertension type: essential hypertension Qualified Code(s): I10 - Essential (primary) hypertension Is this a current diagnosis for this admission?: YesPlan: Continue current medications patient is normotensive (6) Anemia Qualifiers: Anemia type: iron deficiency Iron deficiency anemia type: other iron deficiency Qualified Code(s): D50.8 - Other iron deficiency anemias Is this a current diagnosis for this admission?: YesPlan: Patient was transfused 2 units of PRBCs, iron studies pending. No signs of active bleeding. No prior colonoscopy. Will hold xarelto and consult hematology. Will need GI consult as an outpatient - Time Time Spent with patient: 25-34 minutes Critical Time spent with patient: 15-24 minutes Medications reviewed and adjusted accordingly: Yes Anticipated discharge: Home
--- NOTE | 2016-06-28 13:30 | DRAGON STRESS TEST REPORT ---
INTRAVENOUS LEXISCAN CARDIOLITE STRESS TEST USING SINGLE PHOTON EMMISION COMPUTERIZED TOMOGRAPHIC. DATE OF PROCEDURE: June 28, 2016 INDICATION : Chest pain, atrial fibrillation CARDIAC RISK FACTORS: Hypertension, dyslipidemia, COPD RESTING EKG: Sinus rhythm without any baseline ST segment changes. STRESS EKG: No significant changes noted with LexiScan bolus REASON FOR TERMINATION: Protocol. PROCEDURE REPORT: Baseline heart rate 82 beats per minute with blood pressure of 155/88 patient had no significant complaints. Heart rate at 2 minutes post bolus 96 with a blood pressure of 160/84. 3 minutes post bolus heart rate 80 with blood pressure of 160/83. No significant EKG changes were noted. Patient had no significant complaints during the procedure or postprocedure. Patient injected with Aminophyllin 75 mg at 3 minutes or later after Lexiscan bolus. CONCLUSIONS: Normal EKG and hemodynamic response to IV LexiScan. NUCLEAR DATA: At rest the patient was given 15.52 millicuries of technetium 99 sestamibi injected intravenously. As per protocol rest gated SPECT images were obtained. Subsequently the patient was given intravenous LexiScan at a dose of 0.4 mg in 5 mL intravenously, followed by flush with normal saline. Subsequently the stress dose of 43.2 millicuries of technetium 99 sestamibi was injected intravenously. As per protocol stress gated images were obtained. NUCLEAR INTERPRETATION: Both raw and processed data were used for interpretation. Visual, qualitative, computer-generated quantitative data was used. There was good myocardial uptake of technetium compound. Motion artifact and soft tissue attenuations were noted. Increased visceral uptake was noted. No definitive areas of transient perfusion defect noted. No definitive areas of fixed perfusion defect or scars noted. Decreased uptake was noted in the inferior wall more so in the stress imaging done in rest imaging however, it is felt to be related to differences in diaphragmatic attenuation artifact as no corresponding wall motion abnormalities were noted. Patient also had significant increased retrocardiac uptake which is felt to be mostly related to hiatal hernia but could consider a CT chest. EKG gated imaging showed LV EF at 44 %, rest and stress gated EF similar visually. T. I D. ratio was 1.13]. Lung heart ratio noted to be within normal limits 0.28]. No significant extracardiac and abnormal radiotracer activities were noted. RV free wall uptake was noted to be mildly increased. IMPRESSION: Also refer to comments under nuclear interpretation. Also test results needs to be interpreted in the context of pretest probability. 1. There is no definitive scintigraphic evidence of LexiScan induced myocardial ischemia. 2. There is no definitive scintigraphic evidence of myocardial infarction/scar. 3. EKG gated imaging shows left ejection fraction of approximately 44 %. 4. Clinical correlation requested as occasionally single vessel disease or balanced ischemia could be missed. In approximately 10% of the cases Lexiscan may not cause adequate vasodilatory stress. 5. Increased retrocardiac uptake noted, most likely hiatal hernia but may consider CT chest if clinically indicated. RECOMMENDATIONS: Aggressive risk factor modification, medical therapy. Clinical correlation with echocardiogram derived ejection fraction. Inability to exercise by itself can lead to increased cardiovascular event risks. Consider cardiology consultation and or follow-up if clinically indicated. I AM AVAILABLE FOR CARDIOLOGY CONSULTATION AND FOLLOWUP IF REQUESTED BY PMMarylu Masters M.D., LIO [employer] Architect education diagnostician, Board certified in cardiovascular diseases, Nuclear cardiology, Echocardiography Cardiac CT and cardiac MRI Ph. [phone] [facility] HOSPITALMarylu
[2016-06-28 15:04] LABS: PATH REVIEW PATHOLOGIST REVIEWED
[2016-06-28] MEDS ORDERED: NALOXONE HCL INJ/PF 0.4 MG/1 ML SDV ONE (16:51)
[2016-06-28] MEDS ORDERED: ONDANSETRON HCL INJ/PF 4 MG/2 ML SDV ONE (16:51)
[2016-06-28] MEDS ORDERED: EPINEPHRINE INJ 1 MG/10 ML DISP.SYRIN ONE (16:52)
[2016-06-28] MEDS ORDERED: GLUCAGON,HUMAN RECOMB 1 MG INJ ONE (16:52)
[2016-06-28] MEDS ORDERED: FLUMAZENIL INJ 0.5 MG/5 ML VIAL IV ONE (16:52)
[2016-06-28] MEDS ORDERED: FENTANYL CITRATE INJ/PF 100 MCG/2 ML AMPUL ONE (16:52)
[2016-06-28] MEDS: MIDAZOLAM 2 MG/2 ML INJ ONE ×4 (17:12→17:35)
--- NOTE | 2016-06-28 18:46 | XCELERA REPORT ---
[address] [address] Transthoracic Echocardiogram Report Name: JOVAN GRIDER JR Age: 61 yrs Gender: Male : 1955 Patient Status: Inpatient Patient Location: [id number]\S\324\S\A Study Date: 06/28/2016 10:09 AM Height: 76 in Weight: 257 lb BSA: 2.5 m2 Procedure: A complete two-dimensional transthoracic echocardiogram was performed (2D, M-mode, spectral and color flow Doppler). The study was technically adequate with some images being suboptimal in quality. Reason For Study: Atrial fibrillation Ordering Physician: STAN SOLIS Performed By: Shelly Ibrahim Interpretation Summary The left ventricular ejection fraction is normal. There is borderline concentric left ventricular hypertrophy. Doppler measurements suggest pseudonormalized left ventricular relaxation, which is associated with grade II/IV or mild to moderate diastolic dysfunction The left ventricle is grossly normal size. Wall motion cannot be accurately commented on, but no definite regional wall motion abnormalities noted. The right ventricular systolic function is normal. The left atrium is mildly dilated. The right atrium is normal. There is a trace to mild amount of mitral regurgitation There is no mitral valve stenosis. No aortic regurgitation is present. There is no aortic valve stenosis There is a trace or physiologic amount of tricuspid regurgitation Tricuspid regurgitation jet envelope not well defined to measure RV systolic pressure accurately. The aortic root is not well visualized but is probably normal size. The inferior vena cava appeared normal and decreased > 50% with respiration (RAP 5-10 mmHg) There is no pericardial effusion. MMode/2D Measurements \T\ Calculations RVDd: 3.2 cm LVIDd: 5.5 cm FS: 30.8 % Ao root diam: 3.6 cm IVSd: 0.97 cm LVIDs: 3.8 cm EDV(Teich): 144.6 ml LVPWd: 1.0 cm ESV(Teich): 60.9 ml Ao root area: 10.3 cm2 EF(Teich): 57.8 % LA dimension: 3.9 cm Doppler Measurements \T\ Calculations MV E max yunior: MV P1/2t max yunior: Ao V2 max: LV V1 max P.6 cm/sec 110.1 cm/sec 125.6 cm/sec 4.4 mmHg MV A max yunior: MV P1/2t: 5864 msec Ao max PG: LV V1 max: 61.7 cm/sec 6.3 mmHg 104.6 cm/sec MV E/A: 1.8 MVA(P1/2t): 0.04 cm2 MV dec slope: 5.5 cm/sec2 PA V2 max: 90.3 cm/sec PA max P.3 mmHg Left Ventricle The left ventricle is grossly normal size. There is borderline concentric left ventricular hypertrophy. The left ventricular ejection fraction is normal. Doppler measurements suggest pseudonormalized left ventricular relaxation, which is associated with grade II/IV or mild to moderate diastolic dysfunction. Wall motion cannot be accurately commented on, but no definite regional wall motion abnormalities noted. Right Ventricle The right ventricle is grossly normal size. There is normal right ventricular wall thickness. The right ventricular systolic function is normal. Atria The right atrium is normal. The left atrium is mildly dilated. Interarterial septum not well visualized and not well dopplered. Cannot comment on ASD/PFO presence. Mitral Valve The mitral valve is grossly normal. There is no mitral valve stenosis. There is a trace to mild amount of mitral regurgitation. Aortic Valve The aortic valve is grossly normal. There is no aortic valve stenosis. No aortic regurgitation is present. Tricuspid Valve The tricuspid valve is not well visualized, but is grossly normal. There is no tricuspid stenosis. There is a trace or physiologic amount of tricuspid regurgitation. Tricuspid regurgitation jet envelope not well defined to measure RV systolic pressure accurately. Pulmonic Valve The pulmonic valve is not well visualized. Great Vessels The aortic root is not well visualized but is probably normal size. The inferior vena cava appeared normal and decreased > 50% with respiration (RAP 5-10 mmHg). Effusions There is no pericardial effusion. : STAN SOLIS > Stan Solis
--- NOTE | 2016-06-28 19:20 | PDOC PROGRESS REPORT ---
Subjective Progress Note for:: 06/28/16 Subjective:: Patient seems to be doing better with gradual improvement. Pt is denying any chest arm or neck discomfort. Patient denying any PND, orthopnea. Patient denied any sustained palpitations, dizziness, syncope, near syncope. Patient denying any fever chills. Patient denying any other significant discomfort. Patient is maintaining sinus rhythm. Review of systems: Rest review of systems negative. Medications: Medications have been reviewed. Nuclear stress test procedure was explained to the patient in detail. Risks benefits were discussed and informed consent was obtained. Alternatives were discussed. Patient informed that based on risk factors, physical exam, lab data findings and symptoms there is at least intermediate probability of underlying CAD. Nuclear stress test procedure was therefore scheduled. Physical Exam Vital Signs: Temp Pulse Resp BP Pulse Ox 97.4 F 57 L 16 111/65 95 06/28/16 15:14 06/28/16 18:20 06/28/16 18:20 06/28/16 18:20 06/28/16 18:20 Intake & Output 06/27/16 06/28/16 06/29/16 06:59 06:59 06:59 Intake Total 1925 1250 Balance 1925 1250 Weight 116.7 kg Exam: GENERAL: well-nourished and in no acute distress. Alert and oriented x3 HEAD: Atraumatic, normocephalic. EYES: Pupils equal round and reactive to light, extraocular movements intact, sclera anicteric, conjunctiva are normal. ENT: TMs normal, nares patent, oropharynx clear without exudates. Moist mucous membranes. No oral ulcerations or bleeding gums noted NECK: supple without lymphadenopathy. Trachea is central. No cervical or axillary lymphadenopathy noted. Carotids are 2+, JVD WNL LUNGS: Respiration seems nonlabored, no significant accessory muscle action noted. Breath sounds clear to auscultation bilaterally and equal noted. No wheezes rales or rhonchi noted. No significant dullness noted on percussion. CHEST: Palpation of the chest wall shows no significant chest wall tenderness. No other significant abnormalities noted. HEART: [place] SKIN CARVER, No PSH, 1/6 JEFFERY aortic area, 1/6 root systolic murmur mitral area, no rubs, no gallops. ABDOMEN: Soft, no significant tenderness appreciated, normoactive bowel sounds. No guarding, no rebound. No rigidity noted . No masses appreciated. EXTREMITIES: Pedal pulses are 1-2+, no calf tenderness noted. No clubbing or cyanosis.trace to 1+ pedal edema noted NEUROLOGICAL: Focused neurological exam showed no significant neurologic deficit. Normal speech, no focal weakness appreciated. PSYCH: Normal mood, normal affect. Judgment and insight within normal limits. SKIN: No significant ecchymosis, rash, ulcerations or signs of pruritus noted. MUSCULOSKELETAL EXAM: No significant joint swelling noted. Results Laboratory Results: 06/28/16 04:41 WBC 5.3 RBC 4.13 L Hgb 8.3 L Hct 27.1 L MCV 66 L MCH 20.0 L MCHC 30.5 L RDW 21.1 H Plt Count 183 Seg Neutrophils % 54.1 Lymphocytes % 25.3 Monocytes % 13.3 H Eosinophils % 5.6 Basophils % 1.7 Absolute Neutrophils 2.9 Absolute Lymphocytes 1.3 Absolute Monocytes 0.7 Absolute Eosinophils 0.3 Absolute Basophils 0.1 06/27/16 06/27/16 09:30 15:12 Troponin I 0.055 0.056 Impressions: Chest X-Ray 06/27/16 04:02 IMPRESSION: Stable chest without acute cardiopulmonary disease. Findings as above. Assessment & Plan - Diagnosis (1) Atrial fibrillation with RVR Is this a current diagnosis for this admission?: Yes (2) Chest pain Qualifiers: Chest pain type: unspecified Qualified Code(s): R07.9 - Chest pain, unspecified Is this a current diagnosis for this admission?: Yes (3) Anticoagulated Is this a current diagnosis for this admission?: Yes (4) Chronic obstructive pulmonary disease (COPD) Qualifiers: COPD type: unspecified COPD Qualified Code(s): J44.9 - Chronic obstructive pulmonary disease, unspecified Is this a current diagnosis for this admission?: Yes (5) HLD (hyperlipidemia) Qualifiers: Hyperlipidemia type: unspecified Qualified Code(s): E78.5 - Hyperlipidemia, unspecified Is this a current diagnosis for this admission?: Yes (6) HTN (hypertension) Qualifiers: Hypertension type: essential hypertension Qualified Code(s): I10 - Essential (primary) hypertension Is this a current diagnosis for this admission?: Yes - Notes Notes: Atrial fibrillation: Paroxysmal patient converted to sinus rhythm spontaneously. Continue with rate control agent. Chronic anticoagulation on hold because of bleeding. Patient's chads score is 1 therefore anticoagulation for atrial fibrillation is optional. Patient was on Xarelto for previous thromboembolic phenomenon., Mainly DVT and possibly P pulmonary embolism. Chest pain: Resolved. Patient claims chest pain is improved. This was evaluated with a nuclear stress test. Nuclear stress test was negative for any significant areas of ischemia or any significant areas of scar. The nuclear stress test is felt to be relatively low risk. Patient informed that occasionally single-vessel disease and balanced ischemia could be missed. Patient advised aggressive risk factor modification and medical therapy. Patient informed that further evaluation may become necessary if symptoms worsens or there is a development of new symptoms indicative of angina or angina equivalent symptom. COPD patient encouraged to avoid first-hand and secondhand smoking. Patient also advised to avoid environmental pollutants. Patient to use bronchodilator and steroid therapy as has been prescribed by PMD and other specialists. Hyperlipidemia: LDL goal is less than 70. Recommend statin therapy at least intermediate or high dose, of high potency status. Periodic lipid panel and liver panel is indicated. Patient to report any significant muscle discomfort or other side effects. Blood pressure goal in this patient is 140/90 or less. This was discussed with the patient. Currently blood pressure under reasonable control. Better medication for this patient are YANNICK inhibitor/ARB/beta coleman etc. discussed side effects of uncontrolled hypertension and also severe hypotension. - Time Time with patient: Greater than 35 minutes - Patient was seen multiple times. Total time exceeds 40 minutes. In the morning nuclear stress test procedure, risks benefits, alternatives were discussed. Patient seen during the stress test. Patient also seen after stress test when results were discussed with the patient in detail. Patient's questions were answered. Nuclear stress test results were discussed with the patient. Patient was informed that no definitive evidence of pharmacologic stress-induced ischemia noted. No definite fixed defects were noted. Patient informed that occasionally significant single vessel disease or balanced ischemia could be missed. However based on the current study results, would recommend aggressive risk factor modification and medical therapy. It may also be worthwhile to consider evaluation or empiric management of other causes of chest pain. Should no other cause be found and if persistent in having chest pain, then cardiac catheterization should be considered. Right now, recommendations are for aggressive risk factor modification and medical management. More than 50% of the time spent coordinating care, discussing management plans with involved caregivers. Management plans discussed with involved personnels. Medical decision making was of moderate to high complexity, patient's has multiple comorbidities. CODE STATUS was discussed, patient remains full code. Surrogate decision-maker unchanged. Multiple medical problems were addressed. Medications reviewed and adjusted accordingly: Yes
[2016-06-28 19:21] LABS: ABSOLUTE BASOPHILS # (AUTO) 0.1 10^3/uL (0.0-0.2); ABSOLUTE EOSINOPHILS # (AUTO) 0.3 10^3/uL (0.0-0.6); ABSOLUTE LYMPHOCYTES (AUTO) 1.5 10^3/uL (0.5-4.7); ABSOLUTE MONOCYTES (AUTO) 0.7 10^3/uL (0.1-1.4); ABSOLUTE NEUT (AUTO) 4.2 10^3/uL (1.7-8.2); BASOPHILS % (AUTO) 1.4 % (0-2); HEMATOCRIT 32.8 % (37.9-51.0); HGB HCT DIFFERENCE -2.8; LYMPHOCYTES % (AUTO) 22.2 % (13-45); MEAN CORPUSCULAR HEMOGLOBIN 20.4 pg (27.0-33.4); MEAN CORPUSCULAR HGB CONC 30.4 g/dL (32.0-36.0); MEAN CORPUSCULAR VOLUME 67 fl (80-97); MONOCYTES % (AUTO) 9.6 % (3-13); RED BLOOD COUNT 4.89 10^6/uL (4.35-5.55); RED CELL DISTRIBUTION WIDTH 22.3 % (11.5-14.0); SEGMENTED NEUTROPHILS % (AUTO) 61.8 % (42-78); WHITE BLOOD COUNT 6.8 10^3/uL (4.0-10.5)
--- NOTE | 2016-06-28 19:28 | OPERATIVE REPORT E ---
Operative Report NAME: JOVAN GRIDER : 1955 AGE: 61Y DATE OF SURGERY: 06/28/2016 ROOM: 313 PREOPERATIVE DIAGNOSES: 1. Anemia. 2. History of peptic ulcer disease. POSTOPERATIVE DIAGNOSES: 1. Mild gastritis. 2. Moderate hiatal hernia. 3. Extensive sigmoid diverticuloses. 4. Moderate-sized sigmoid colon polyp. OPERATION: 1. Esophagogastroduodenoscopy with photo documentation. 2. Total colonoscopy to the cecum. 3. Hot snare polypectomy of sigmoid colon polyp. SURGEON: NIKITA DENT M.D. ANESTHESIA: IV sedation. COMPLICATIONS: None. ESTIMATED BLOOD LOSS: Scant. DRAINS: None. TISSUE REMOVED OR ALTERED: One sigmoid colon polyp. SUMMARY OF PROCEDURE: The patient was brought from the floor to the endoscopy suite [address] [place] [address] where monitoring devices were hooked up. The patient was placed in the semi-recumbent left lateral tilt position. Surgical plan and surgical timeout were conducted. Appropriate level of anesthesia was achieved with conscious sedation. We proceeded with the EGD first. The oral mouthpiece inserted, hypopharynx anesthetized with lidocaine spray, and the flexible adult upper scope was advanced through the hypopharynx, down the esophagus into the stomach. Of note, there was a moderate-sized hiatal hernia with some tortuosity which rendered advancement of the EGD scope somewhat tricky. Nonetheless, we got into stomach which was normal except for some mild streaking gastritis. No biopsies were taken. There was no other evidence of tumor, stricture, bleeding, or cancer. The scope was advanced through the pylorus which appeared grossly normal, and the first and second portions of the duodenum were carefully scoped, and there was no visible pathology here. Scope was withdrawn through the pylorus, again inspecting the greater and lesser curvatures of the stomach and retroflexing the scope again in the stomach. No source of bleeding clot identified. Scope was withdrawn through the esophagus. There was no evidence of esophageal varices. There was one small focal area of inflammation of the distal esophagus just proximal to the Z-line. Scope was withdrawn from the patient's oropharynx. He tolerated the procedure well. The patient was then reconfigured for colonoscopy. He was placed in the extreme left lateral decubitus position. Rectal exam was performed. There was no visible or palpable anorectal pathology. The flexible adult colonoscope was advanced through the anorectal canal all the way to the cecum. This was a reasonably well performed study because the patient still had some residual brown stool which was aspirated to the best of our ability. The cecum was intensified by visualization of the cecal anatomy, as well as transillumination of the anterior abdominal wall. We brought the scope out slowly inspecting the mucosa in a reasonably comprehension fashion. There were extensive sigmoid diverticuloses but no evidence of stricture. There was approximately a 15 mm pedunculated polyp with a raw surface in the sigmoid colon approximately 40 cm from the anal verge. The polyp was removed using hot snare medium strength with retrieval of the specimen by scope extraction. The polypectomy site was well cauterized without bleeding. The remainder of the colonoscopy in terms of extracting the colonoscope through the distal sigmoid colon, and anorectal canal was grossly unremarkable. Again, this was a reasonably well-performed colonoscopy with some residual liquid and particulate stool that did require aspiration. Nonetheless, the surgeon felt that no other significant endoluminal pathology was present. The patient tolerated the procedure well, scope withdrawn from the patient's anus. Per surveillance guidelines, he will require follow-up colonoscopy in 1 year or sooner pending final path report on the polyp removed today. DICTATING PHYSICIAN: NIKITA DENT M.D. [id number] PHY#: [id number] ID: [id number] JOB#: [id number] ACCT: [id number] cc:NIKITA DENT M.D. > MTDD
[2016-06-28] MEDS ORDERED: ATORVASTATIN CALCIUM 40 MG TABLET PO SCH (22:00)
--- NOTE | 2016-06-29 08:22 | PDOC PROGRESS REPORT ---
Subjective Progress Note for:: 06/29/16 Subjective:: Patient feeling better today, hemoglobin is up to 10, patient received IV iron yesterday, endoscopies did not show any active bleeding. Physical Exam Vital Signs: Temp Pulse Resp BP Pulse Ox 98.0 F 59 L 18 146/93 H 96 06/29/16 07:51 06/29/16 07:51 06/29/16 07:51 06/29/16 07:51 06/29/16 07:51 Intake & Output 06/28/16 06/29/16 06/30/16 06:59 06:59 06:59 Intake Total 1924 4680 Balance 1924 4680 Weight 116.7 kg General appearance: PRESENT: no acute distress, well-developed, well-nourished Head exam: PRESENT: atraumatic, normocephalic Eye exam: PRESENT: conjunctiva pink, EOMI, PERRLA. ABSENT: scleral icterus Ear exam: PRESENT: normal external ear exam Mouth exam: PRESENT: moist, tongue midline Neck exam: ABSENT: carotid bruit, JVD, lymphadenopathy, thyromegaly Respiratory exam: PRESENT: clear to auscultation florin. ABSENT: rales, rhonchi, wheezes Cardiovascular exam: PRESENT: RRR. ABSENT: diastolic murmur, rubs, systolic murmur Pulses: PRESENT: normal dorsalis pedis pul Vascular exam: PRESENT: normal capillary refill GI/Abdominal exam: PRESENT: normal bowel sounds, soft. ABSENT: distended, guarding, mass, organolmegaly, rebound, tenderness Rectal exam: PRESENT: deferred Extremities exam: PRESENT: full ROM. ABSENT: calf tenderness, clubbing, pedal edema Neurological exam: PRESENT: alert, awake, oriented to person, oriented to place , oriented to time, oriented to situation, CN II-XII grossly intact. ABSENT: motor sensory deficit Psychiatric exam: PRESENT: appropriate affect, normal mood. ABSENT: homicidal ideation, suicidal ideation Skin exam: PRESENT: dry, intact, warm. ABSENT: cyanosis, rash Results Laboratory Results: 06/28/16 19:14 06/28/16 19:14 WBC 6.8 RBC 4.89 Hgb 10.0 L Hct 32.8 L MCV 67 L MCH 20.4 L MCHC 30.4 L RDW 22.3 H Plt Count 209 Seg Neutrophils % 61.8 Lymphocytes % 22.2 Monocytes % 9.6 Eosinophils % 5.0 Basophils % 1.4 Absolute Neutrophils 4.2 Absolute Lymphocytes 1.5 Absolute Monocytes 0.7 Absolute Eosinophils 0.3 Absolute Basophils 0.1 06/27/16 06/27/16 09:30 15:12 Troponin I 0.055 0.056 Impressions: Chest X-Ray 06/27/16 04:02 IMPRESSION: Stable chest without acute cardiopulmonary disease. Findings as above. Assessment & Plan - Diagnosis (1) Anemia Qualifiers: Anemia type: iron deficiency Iron deficiency anemia type: other iron deficiency Qualified Code(s): D50.8 - Other iron deficiency anemias Is this a current diagnosis for this admission?: YesPlan: Hemoglobin improved, will need further iron therapy as an outpatient, will set that up. (2) Atrial fibrillation with RVR Is this a current diagnosis for this admission?: YesPlan: Rate controlled now, further workup per cardiology. Would hold on anticoagulation. - Time Time Spent with patient: 15-24 minutes Critical Time spent with patient: 15-24 minutes
[2016-06-29] MEDS: LISINOPRIL 10 MG TABLET PO SCH (09:48)
[2016-06-29] MEDS: METOPROLOL SUCCINATE 50 MG TAB.SR.24H PO SCH (09:49)
[2016-06-29] MEDS: PANTOPRAZOLE SODIUM 40 MG VIAL IV SCH (09:49)
[2016-06-29] MEDS: DOCUSATE SODIUM 100 MG CAPSULE PO SCH (09:49)
[2016-06-29 13:39] VITALS: BP 149/102
--- NOTE | 2016-06-29 14:34 | PDOC DISCHARGE SUMMARY ---
General - Admit/Disc Date/PCP Admission Date/Primary Care Provider: 06/27/16 07:32 Discharge Date: 06/29/16 - Discharge Diagnosis (1) Atrial fibrillation with RVR Is this a current diagnosis for this admission?: YesSummary: Resolved on IV diltiazem (2) Anticoagulated Is this a current diagnosis for this admission?: YesSummary: Presently on hold (3) Chronic obstructive pulmonary disease (COPD) Is this a current diagnosis for this admission?: YesSummary: Continue prn inhalers (4) HLD (hyperlipidemia) Is this a current diagnosis for this admission?: YesSummary: Continue statin (5) HTN (hypertension) Is this a current diagnosis for this admission?: YesSummary: Normotensive on current medications (6) Anemia Is this a current diagnosis for this admission?: YesSummary: Tranfused 3 units prbcs. EGD/Colonoscopy done by Dr Harris. He will follow up with Dr Harris in 2 weeks - Additional Information Resuscitation Status: Full Code Discharge Diet: Regular Discharge Activity: Activity As Tolerated, Balance Activity w/Rest Home Medications: Atorvastatin Calcium [Lipitor 80 mg Tablet] 40 mg PO QHS #30 tablet 02/18/14 Metoprolol Succinate [Toprol Xl 50 mg Tab.sr] 50 mg PO DAILY #30 tab.sr.24h 01/21 Lisinopril 20 mg PO DAILY 06/27/16 Pantoprazole Sodium [Protonix] 40 mg PO DAILY #30 tablet. 06/29/16 History of Present Illness Patient complains of: Palpitations and tachycardia History of Present Illness: JOVAN GRIDER JR is a 61 year old male with known underlying atrial fibrillation, on Xarelto for same, along with underlying hypertension, COPD, arthritis, and hyperlipidemia, who presents to the emergency room for evaluation of sudden onset of palpitations approximately 45 minutes prior to emergency room arrival. brought him to the emergency room. Was noted to be in atrial fibrillation with rapid ventricular response. Rate has been well controlled with combination of Cardizem bolus and drip, along with metoprolol. There has been no chest pain, shortness of breath, abdominal pain, fever chills , nausea or vomiting. No recent change in his medications. He is compliant with his medications. No history of myocardial infarction or congestive heart failure. No history of hematemesis, coffee-ground emesis, hematochezia or melena. Distant history of a negative colonoscopy. Distant history of bleeding peptic ulcer. Currently receiving a unit of packed red blood cells, as ordered by the emergency room physician. Initial diagnoses of atrial fibrillation in February 2014, when he was hospitalized on our service basically overnight. History and physical and discharge summary have been reviewed. Outpatient echocardiogram and stress test recommended, but due to financial considerations, patient did not follow-up with same. Prior to today, he has had no known recurrence of atrial fibrillation with rapid ventricular response. Currently resting quietly, without specific complaints other than being somewhat tired. Hospital Course Hospital Course: Patient was admitted to [facility] on telemetry. Cardiology has been consulted for management of atrial fibrillation. Patient was started on IV diltiazem. He shortly converted to normal sinus rhythm. The diltiazem was weaned off. His metoprolol is restarted. He was transfused a total of 2 units of packed red blood cells. Iron studies were obtained, which demonstrated iron deficiency anemia. Dr. Gonzalez, hematology, saw the patient in consult. He was given a dose of IV Feraheme. Following day his hemoglobin is 8.2. He was transfused 1 more unit of packed red blood cells. Dr. Masters, ordered a nuclear stress test. This was obtained and was unremarkable. Dr. Harris, was consulted for EGD/ colonoscopy. EGD revealed gastritis. Colonoscopy demonstrated diverticulosis with one colonic polyp that was excised. Today the patient's hemoglobin is 10, he feels much improved. He has had no further episodes of atrial fibrillation. He is tolerating a regular diet and wishes to go home. He will hold his Xarelto, until okayed by Dr. Gonzalez. Physical Exam Vital Signs: Temp Pulse Resp BP Pulse Ox 98.3 F 53 L 18 149/102 H 99 06/29/16 13:37 06/29/16 13:37 06/29/16 13:37 06/29/16 13:37 06/29/16 13:37 Intake & Output 06/28/16 06/29/16 06/30/16 06:59 06:59 06:59 Intake Total 1924 4680 Balance 1924 4680 Weight 116.7 kg General appearance: PRESENT: no acute distress, obese, well-developed, well- nourished Head exam: PRESENT: atraumatic, normocephalic Eye exam: PRESENT: conjunctiva pink, EOMI, PERRLA. ABSENT: scleral icterus Ear exam: PRESENT: normal external ear exam Mouth exam: PRESENT: moist, tongue midline Neck exam: ABSENT: carotid bruit, JVD, lymphadenopathy, thyromegaly Respiratory exam: PRESENT: clear to auscultation florin. ABSENT: rales, rhonchi, wheezes Cardiovascular exam: PRESENT: RRR. ABSENT: diastolic murmur, rubs, systolic murmur Pulses: PRESENT: normal dorsalis pedis pul Vascular exam: PRESENT: normal capillary refill GI/Abdominal exam: PRESENT: normal bowel sounds, soft. ABSENT: distended, guarding, mass, organolmegaly, rebound, tenderness Rectal exam: PRESENT: deferred Extremities exam: PRESENT: full ROM. ABSENT: calf tenderness, clubbing, pedal edema Neurological exam: PRESENT: alert, awake, oriented to person, oriented to place , oriented to time, oriented to situation, CN II-XII grossly intact. ABSENT: motor sensory deficit Psychiatric exam: PRESENT: appropriate affect, normal mood. ABSENT: homicidal ideation, suicidal ideation Skin exam: PRESENT: dry, intact, warm. ABSENT: cyanosis, rash Results Laboratory Results: 06/28/16 19:14 06/28/16 19:14 WBC 6.8 RBC 4.89 Hgb 10.0 L Hct 32.8 L MCV 67 L MCH 20.4 L MCHC 30.4 L RDW 22.3 H Plt Count 209 Seg Neutrophils % 61.8 Lymphocytes % 22.2 Monocytes % 9.6 Eosinophils % 5.0 Basophils % 1.4 Absolute Neutrophils 4.2 Absolute Lymphocytes 1.5 Absolute Monocytes 0.7 Absolute Eosinophils 0.3 Absolute Basophils 0.1 06/27/16 06/27/16 09:30 15:12 Troponin I 0.055 0.056 Impressions: Chest X-Ray 06/27/16 04:02 IMPRESSION: Stable chest without acute cardiopulmonary disease. Findings as above. Qualifiers PATEINT BEING DISCHARGED WITH ANY OF THE FOLLOWING DIAGNOSIS?: No Plan Discharge Plan: Home with Time Spent: Less than 30 Minutes
--- NOTE | 2016-06-29 22:38 | PDOC PROGRESS REPORT ---
Subjective Progress Note for:: 06/29/16 Subjective:: Patient seems to be doing better with gradual improvement. Pt is denying any chest arm or neck discomfort. Patient denying any PND, orthopnea. Patient denied any sustained palpitations, dizziness, syncope, near syncope. Patient denying any fever chills. Patient denying any other significant discomfort. Patient is maintaining sinus rhythm. Review of systems: Rest review of systems negative. Medications: Medications have been reviewed. Physical Exam Vital Signs: Temp Pulse Resp BP Pulse Ox 98.0 F 59 L 18 146/93 H 96 06/29/16 07:51 06/29/16 07:51 06/29/16 07:51 06/29/16 07:51 06/29/16 07:51 Intake & Output 06/28/16 06/29/16 06/30/16 06:59 06:59 06:59 Intake Total 1924 4680 Balance 1924 4680 Weight 116.7 kg Exam: GENERAL: well-nourished and in no acute distress. Alert and oriented x3 HEAD: Atraumatic, normocephalic. EYES: Pupils equal round and reactive to light, extraocular movements intact, sclera anicteric, conjunctiva are normal. ENT: TMs normal, nares patent, oropharynx clear without exudates. Moist mucous membranes. No oral ulcerations or bleeding gums noted NECK: supple without lymphadenopathy. Trachea is central. No cervical or axillary lymphadenopathy noted. Carotids are 2+, JVD WNL LUNGS: Respiration seems nonlabored, no significant accessory muscle action noted. Breath sounds clear to auscultation bilaterally and equal noted. No wheezes rales or rhonchi noted. No significant dullness noted on percussion. CHEST: Palpation of the chest wall shows no significant chest wall tenderness. No other significant abnormalities noted. HEART: [place] [employer], No PSH, 1/6 JEFFERY aortic area, 1/6 root systolic murmur mitral area, no rubs, no gallops. ABDOMEN: Soft, no significant tenderness appreciated, normoactive bowel sounds. No guarding, no rebound. No rigidity noted . No masses appreciated. EXTREMITIES: Pedal pulses are 1-2+, no calf tenderness noted. No clubbing or cyanosis.trace to 1+ pedal edema noted NEUROLOGICAL: Focused neurological exam showed no significant neurologic deficit. Normal speech, no focal weakness appreciated. PSYCH: Normal mood, normal affect. Judgment and insight within normal limits. SKIN: No significant ecchymosis, rash, ulcerations or signs of pruritus noted. MUSCULOSKELETAL EXAM: No significant joint swelling noted. Results Laboratory Results: 06/28/16 19:14 06/28/16 19:14 WBC 6.8 RBC 4.89 Hgb 10.0 L Hct 32.8 L MCV 67 L MCH 20.4 L MCHC 30.4 L RDW 22.3 H Plt Count 209 Seg Neutrophils % 61.8 Lymphocytes % 22.2 Monocytes % 9.6 Eosinophils % 5.0 Basophils % 1.4 Absolute Neutrophils 4.2 Absolute Lymphocytes 1.5 Absolute Monocytes 0.7 Absolute Eosinophils 0.3 Absolute Basophils 0.1 06/27/16 06/27/16 09:30 15:12 Troponin I 0.055 0.056 Impressions: Chest X-Ray 06/27/16 04:02 IMPRESSION: Stable chest without acute cardiopulmonary disease. Findings as above. Assessment & Plan - Diagnosis (1) Atrial fibrillation with RVR Is this a current diagnosis for this admission?: YesPlan: Pt maintaining SR, Continue current Rx (2) Chest pain Qualifiers: Chest pain type: unspecified Qualified Code(s): R07.9 - Chest pain, unspecified Is this a current diagnosis for this admission?: YesPlan: Resolved felt to be non cardiac. Rec risk factor modification and medical management. (3) Anticoagulated Is this a current diagnosis for this admission?: YesPlan: Continue same. (4) Chronic obstructive pulmonary disease (COPD) Qualifiers: COPD type: unspecified COPD Qualified Code(s): J44.9 - Chronic obstructive pulmonary disease, unspecified Is this a current diagnosis for this admission?: YesPlan: stable (5) HLD (hyperlipidemia) Qualifiers: Hyperlipidemia type: unspecified Qualified Code(s): E78.5 - Hyperlipidemia, unspecified Is this a current diagnosis for this admission?: YesPlan: stable (6) HTN (hypertension) Qualifiers: Hypertension type: essential hypertension Qualified Code(s): I10 - Essential (primary) hypertension Is this a current diagnosis for this admission?: YesPlan: well controlled. - Time Time with patient: 15-25 minutes Medications reviewed and adjusted accordingly: Yes
== END 2016-06-29 14:15 | disposition home or self-care (01) | DRG 310 ==
LOC: ER 03:05 → UNDOADMIN 06:03 → EH 06:03 → 3W 07:32 → EH 07:45 → 3W 06-28 11:34
PROVIDERS: ADMIT Family Medicine; ATTEND Family Medicine
PROC: 30233N1 Transfusion of Nonautologous Red Blood Cells into Peripheral Vein, Percutaneous Approach (ICD-10-PCS; 2016-06-27)
PROC: 3E0F73Z Introduction of Anti-inflammatory into Respiratory Tract, Via Natural or Artificial Opening (ICD-10-PCS; 2016-06-27)
PROC: 30233N1 Transfusion of Nonautologous Red Blood Cells into Peripheral Vein, Percutaneous Approach (ICD-10-PCS; 2016-06-28)
PROC: 0DJ08ZZ Inspection of Upper Intestinal Tract, Via Natural or Artificial Opening Endoscopic (ICD-10-PCS; principal; 2016-06-28 17:00)
PROC: 0DBN8ZX Excision of Sigmoid Colon, Via Natural or Artificial Opening Endoscopic, Diagnostic (ICD-10-PCS; 2016-06-28 17:00)
DX: I48.0 Paroxysmal atrial fibrillation (principal); D50.9 Iron deficiency anemia, unspecified; J44.9 Chronic obstructive pulmonary disease, unspecified; E78.5 Hyperlipidemia, unspecified; I10 Essential (primary) hypertension; M19.90 Unspecified osteoarthritis, unspecified site; K29.70 Gastritis, unspecified, without bleeding; K57.30 Diverticulosis of large intestine without perforation or abscess without bleeding; D12.5 Benign neoplasm of sigmoid colon; H91.90 Unspecified hearing loss, unspecified ear; F32.9 Major depressive disorder, single episode, unspecified; F41.1 Generalized anxiety disorder; K44.9 Diaphragmatic hernia without obstruction or gangrene; E66.9 Obesity, unspecified; Z68.31 Body mass index [BMI] 31.0-31.9, adult; Z79.01 Long term (current) use of anticoagulants; Z79.899 Other long term (current) drug therapy; Z87.11 Personal history of peptic ulcer disease; Z59.9 Problem related to housing and economic circumstances, unspecified; Z88.8 Allergy status to other drugs, medicaments and biological substances; Z91.018 Allergy to other foods; Z86.718 Personal history of other venous thrombosis and embolism; Z82.49 Family history of ischemic heart disease and other diseases of the circulatory system; Z80.9 Family history of malignant neoplasm, unspecified
CPT/HCPCS: 36415; 36430; 43235; 45385; 71010; 78452; 80053; 80061; 81001; 82272; 82550; 82553; 82607; 82728; 82746; 83540; 83550; 83735; 84443; 84466; 84484; 85025; 85045; 85610; 85730; 86850; 86900; 86901; 86920; 88305; 93005; 93010; 93017; 93306; 96365; 96366; 96374; 96375; 99291; A9500; J0171; J0280; J1610; J2250; J2310; J2405; J2785; J3010; J3490; J7030; J7050; P9016; Q0138; Q9969; S0164

== ENCOUNTER 2016-07-01 11:10 | Emergency (ER) | payer BC ==
--- NOTE | 2016-07-01 11:42 | ER Document Report ---
ED Medical Screen (RME) - General Chief Complaint: Chest Pain Stated Complaint: CHEST PAIN Time Seen by Provider: 07/01/16 11:32 Mode of Arrival: Wheelchair Information source: Patient Notes: Pt presents c/o cp that started at 10 am this morning and lasted 30 minutes. Pt was feeding his dogs and felt like his heart started to race. Pt denies any symptoms now. Pt was just d/c from [facility] 2 days ago for cp. Pt reports his stress test was normal. Pt states he was advised to stop his xarelto for a fib and has been advised not to take ASA. Pt denies any cough, SOB, nausea or vomiting. hx: afib, HTN, COPD TRAVEL OUTSIDE OF THE [place] IN LAST 30 DAYS: No - Related Data Allergies/Adverse Reactions: pineapple [Pineapple] Allergy (Verified 02/17/14 14:16) warfarin sodium [From Coumadin] Adverse Reaction (Verified 02/17/14 14:16) Past Medical History - Social History Chew tobacco use (# tins/day): No Frequency of alcohol use: None Drug Abuse: None - Past Medical History Cardiac Medical History: Reports: Hx Atrial Fibrillation, Hx DVT - Possible history of same, Hx Hypercholesterolemia, Hx Hypertension Denies: Hx Congestive Heart Failure, Hx Heart Attack, Hx Pulmonary Embolism Pulmonary Medical History: Reports: Hx COPD Denies: Hx Asthma, Hx Sleep Apnea Neurological Medical History: Denies: Hx Seizures Endocrine Medical History: Denies: Hx Diabetes Mellitus Type 1, Hx Diabetes Mellitus Type 2, Hx Hyperthyroidism, Hx Hypothyroidism Renal/ Medical History: Denies: Hx Peritoneal Dialysis GI Medical History: Reports: Hx Hepatitis - Hepatitis A. Denies: Hx Cirrhosis Musculoskeltal Medical History: Reports Hx Arthritis Psychiatric Medical History: Reports: Hx Depression - Mild Infectious Medical History: Reports: Hx Hepatitis - Hepatitis A. Denies: Hx C- Diff, Hx MRSA Past Surgical History: Reports: Hx Orthopedic Surgery - Bilateral hips, knees, ankles, and elbow, Hx Tonsillectomy - Immunizations Hx Diphtheria, Pertussis, Tetanus Vaccination: Yes Physical Exam - Vital signs Vitals: Temp Pulse Resp BP Pulse Ox 98.1 F 77 16 152/77 H 96 07/01/16 11:21 07/01/16 11:21 07/01/16 11:21 07/01/16 11:21 07/01/16 11:21 - Respiratory Respiratory status: No respiratory distress Breath sounds: Normal Chest palpation: Normal - Cardiovascular Rhythm: Regular Heart sounds: S1 appreciated, S2 appreciated Course - Vital Signs Vital signs: Temp Pulse Resp BP Pulse Ox 98.1 F 77 16 152/77 H 96 07/01/16 11:21 07/01/16 11:21 07/01/16 11:32 07/01/16 11:21 07/01/16 11:21
[2016-07-01 11:56] LABS: ABSOLUTE BASOPHILS # (AUTO) 0.1 10^3/uL (0.0-0.2); ABSOLUTE EOSINOPHILS # (AUTO) 0.2 10^3/uL (0.0-0.6); ABSOLUTE LYMPHOCYTES (AUTO) 0.9 10^3/uL (0.5-4.7); ABSOLUTE MONOCYTES (AUTO) 0.5 10^3/uL (0.1-1.4); ABSOLUTE NEUT (AUTO) 2.9 10^3/uL (1.7-8.2); EOSINOPHILS % (AUTO) 4.7 % (0-6); HEMATOCRIT 31.8 % (37.9-51.0); HEMOGLOBIN 9.7 g/dL (13.5-17.0); HGB HCT DIFFERENCE -2.7; MEAN CORPUSCULAR HEMOGLOBIN 20.8 pg (27.0-33.4); MEAN CORPUSCULAR HGB CONC 30.7 g/dL (32.0-36.0); MEAN CORPUSCULAR VOLUME 68 fl (80-97); MONOCYTES % (AUTO) 10.1 % (3-13); RED BLOOD COUNT 4.68 10^6/uL (4.35-5.55); RED CELL DISTRIBUTION WIDTH 23.5 % (11.5-14.0); SEGMENTED NEUTROPHILS % (AUTO) 63.2 % (42-78); WHITE BLOOD COUNT 4.6 10^3/uL (4.0-10.5)
--- NOTE | 2016-07-01 12:03 | RADIOLOGY REPORT (SQ) ---
EXAM DESCRIPTION: CHEST PA/LAT COMPLETED DATE/TIME: 07/01/2016 11:53 am REASON FOR STUDY: cp COMPARISON: 02/17/2015 EXAM PARAMETERS: NUMBER OF VIEWS: two views TECHNIQUE: Digital Frontal and Lateral radiographic views of the chest acquired. RADIATION DOSE: NA LIMITATIONS: none FINDINGS: LUNGS AND PLEURA: No opacities, masses or pneumothorax. No pleural effusion. MEDIASTINUM AND HILAR STRUCTURES: There is a large hiatal hernia with an air-fluid level. HEART AND VASCULAR STRUCTURES: Heart normal size. No evidence for failure. BONES: No acute findings. HARDWARE: None in the chest. OTHER: No other significant finding. IMPRESSION: Large hiatal hernia with no acute cardiopulmonary disease. TECHNICAL DOCUMENTATION: JOB ID: [id number] [employer]- All Rights Reserved
[2016-07-01 12:22] LABS: ALANINE AMINOTRANSFERASE 44 U/L (21-72); ALBUMIN 4.2 g/dL (3.5-5.0); ALKALINE PHOSPHATASE 63 U/L (38-126); ANION GAP 12 (5-19); ASPARTATE AMINO TRANSFERASE 30 U/L (17-59); BILIRUBIN,DIRECT 0.3 mg/dL (0.0-0.4); BILIRUBIN,TOTAL 0.6 mg/dL (0.2-1.3); BLOOD UREA NITROGEN 19 mg/dL (7-20); CALCIUM 9.6 mg/dL (8.4-10.2); CARBON DIOXIDE 24 mmol/L (22-30); CHLORIDE 108 mmol/L (98-107); CREATINE KINASE 109 U/L (55-170); CREATININE RESULT 0.92 mg/dL (0.52-1.25); GLUCOSE 107 mg/dL (75-110); LIPASE 103.2 U/L (23-300); MAGNESIUM 1.8 mg/dL (1.6-2.3); POTASSIUM 4.6 mmol/L (3.6-5.0); SODIUM 143.9 mmol/L (137-145); TOTAL PROTEIN 7.3 g/dL (6.3-8.2)
[2016-07-01 12:35] LABS: CREATINE KINASE MB 1.21 ng/mL (<4.55)
[2016-07-01] MEDS ORDERED: NITROGLYCERIN 0.4 MG/TAB 25 TAB/BOTTLE ONE (12:35)
--- NOTE | 2016-07-01 12:36 | ER Document Report ---
Doctor's Note Notes: 07/01/16 12:36 Patient is now complaining of chest pain again. Says the nitroglycerin he received by EMS while coming to the emergency department had helped his pain and it had gone away, but now it is coming back. Another nitroglycerin sublingual was ordered for this patient. We are now getting around for him in the back.
[2016-07-01 12:42] LABS: TROPONIN I < 0.012 ng/mL
--- NOTE | 2016-07-01 12:55 | ER Document Report ---
ED General - General Mode of Arrival: Wheelchair Information source: Patient TRAVEL OUTSIDE OF THE [place] IN LAST 30 DAYS: No - HPI Onset: Just prior to arrival Onset/Duration: Sudden Quality of pain: Pressure Associated symptoms: Shortness of breath Similar symptoms previously: Yes Recently seen / treated by doctor: Yes <BRITTANY FONTAINE - Last Filed: 07/01/16 13:18> <RAFI PATEL - Last Filed: 07/01/16 17:05> - General Chief Complaint: Chest Pain Stated Complaint: CHEST PAIN Time Seen by Provider: 07/01/16 11:32 Notes: Patient is a 61-year-old male that presents to the emergency department today with complaints of chest pain described as "something sitting on chest". Patient was recently seen and evaluated here for chest pain. According to [facility] records, it appears that this chest pain was not thought to be cardiac related. Patient has a rather large hiatal hernia. Patient was told to stop Xarelto during this inpatient stay. Patient also describes a "pressure from the hips down". Patient states he was slightly short of breath when the chest pain was occurring. (BRITTANY FONTAINE) - Related Data Allergies/Adverse Reactions: pineapple [Pineapple] Allergy (Verified 02/17/14 14:16) warfarin sodium [From Coumadin] Adverse Reaction (Verified 02/17/14 14:16) Past Medical History - General Information source: Patient - Social History Smoking Status: Never Smoker Cigarette use (# per day): No Chew tobacco use (# tins/day): No Frequency of alcohol use: None Drug Abuse: None Lives with: Family Family History: Reviewed & Not Pertinent, Other - Review of the history suggests there may be a family history of clotting disorders - Past Medical History Cardiac Medical History: Reports: Hx Atrial Fibrillation, Hx DVT - Possible history of same, Hx Hypercholesterolemia, Hx Hypertension Pulmonary Medical History: Reports: Hx COPD GI Medical History: Reports: Hx Hepatitis - Hepatitis A Musculoskeltal Medical History: Reports Hx Arthritis Psychiatric Medical History: Reports: Hx Depression - Mild Infectious Medical History: Reports: Hx Hepatitis - Hepatitis A Past Surgical History: Reports: Hx Orthopedic Surgery - Bilateral hips, knees, ankles, and elbow, Hx Tonsillectomy - Immunizations Hx Diphtheria, Pertussis, Tetanus Vaccination: Yes <BRITTANY FONTAINE - Last Filed: 07/01/16 13:18> Review of Systems - Review of Systems Constitutional: No symptoms reported EENT: No symptoms reported Cardiovascular: See HPI, Chest pain Respiratory: See HPI, Short of breath Gastrointestinal: No symptoms reported Genitourinary: No symptoms reported Male Genitourinary: No symptoms reported Musculoskeletal: No symptoms reported Skin: No symptoms reported Hematologic/Lymphatic: No symptoms reported Neurological/Psychological: No symptoms reported -: Yes All other systems reviewed and negative <BRITTANY FONTAINE - Last Filed: 07/01/16 13:18> Physical Exam - Vital signs Interpretation: Hypertensive - General General appearance: Appears well, Alert - HEENT Head: Normocephalic, Atraumatic Eyes: Normal Pupils: PERRL - Respiratory Respiratory status: No respiratory distress Chest status: Nontender Breath sounds: Normal Chest palpation: Normal - Cardiovascular Rhythm: Regular Heart sounds: Normal auscultation Murmur: No - Abdominal Inspection: Normal Distension: No distension Bowel sounds: Normal Tenderness: Nontender Organomegaly: No organomegaly - Back Back: Normal, Nontender - Extremities General upper extremity: Normal inspection, Nontender, Normal color, Normal ROM , Normal temperature General lower extremity: Normal inspection, Nontender, Normal color, Normal ROM , Normal temperature, Normal weight bearing. No: Sanjeev's sign - Neurological Neuro grossly intact: Yes Cognition: Normal Orientation: AAOx4 [place] Coma Scale Eye Opening: Spontaneous [place] Coma Scale Verbal: Oriented [place] Coma Scale Motor: Obeys Commands [place] Coma Scale Total: 15 Speech: Normal Motor strength normal: LUE, RUE, LLE, RLE Sensory: Normal - Psychological Associated symptoms: Normal affect, Normal mood - Skin Skin Temperature: Warm Skin Moisture: Dry Skin Color: Normal <RAFI PATEL - Last Filed: 07/01/16 17:05> - Vital signs Vitals: Temp Pulse Resp BP Pulse Ox 98.1 F 77 16 152/77 H 96 07/01/16 11:21 07/01/16 11:21 07/01/16 11:21 07/01/16 11:21 07/01/16 11:21 Course - Laboratory Result Diagrams: 07/01/16 11:43 07/01/16 11:43 <BRITTANY FONTAINE - Last Filed: 07/01/16 13:18> - Laboratory Result Diagrams: 07/01/16 11:43 07/01/16 11:43 - Consults Dr. Masters Time consulted: 15:55 Consulted provider: follow-up in office <RAFI PATEL - Last Filed: 07/01/16 17:05> - Re-evaluation Re-evalutation: 07/01/16 Patient is a 61-year-old male who presents complaining of chest pain. Patient had a recent hospital admission with stress test, endoscopy, and was discharged home with Protonix. He has not picked up his prescription yet. Patient states that he had some chest pain and it felt like his heart was racing. Patient was also admitted recently for A. fib with RVR but that does not appear to be an issue today. Patient had nitroglycerin when she developed this pain. He has had no further chest pain here. Troponin are negative 2. Patient was discussed with Dr. Masters who will see him in the office tomorrow. It is not felt that the pain is cardiac at this time but more likely due to the patient's very large hiatal hernia. Patient was aware that he had a hiatal hernia but he was not aware of what that actually meant. That has been explained and the patient's symptoms have improved after Carafate. He will be discharged home with a prescription for Carafate. Stable for discharge. Return immediately if any worsening or concerning symptoms. She understands and agrees with plan. Stable for discharge. (RAFI PATEL) - Vital Signs Vital signs: Temp Pulse Resp BP Pulse Ox 98.1 F 58 L 18 142/92 H 97 07/01/16 11:21 07/01/16 16:28 07/01/16 16:28 07/01/16 16:28 07/01/16 16:28 - Laboratory Laboratory results interpreted by me: 07/01/16 07/01/16 11:43 11:43 Hgb 9.7 L Hct 31.8 L MCV 68 L MCH 20.8 L MCHC 30.7 L RDW 23.5 H Chloride 108 H Critical Care Note - Critical Care Note Total time excluding time spent on procedures (mins): 35 - Patient management of chest pain, multiple re-evaluations, coordination specialist, counseling of patient and family <RAFI PATEL - Last Filed: 07/01/16 17:05> Discharge <BRITTANY FONTAINE - Last Filed: 07/01/16 13:18> <RAFI PATEL - Last Filed: 07/01/16 17:05> - Discharge Clinical Impression: Anticoagulated, Hiatal hernia Chest pain Qualifiers: Chest pain type: unspecified Qualified Code(s): R07.9 - Chest pain, unspecified Condition: Stable Disposition: HOME, SELF-CARE Instructions: Chest Pain of Unclear Cause ([facility]), Gastritis ([facility]), Gastroenterology Additional Instructions: Please follow-up with Dr. Masters in the morning. Please make sure you are taking your medications as prescribed. Prescriptions: Sucralfate [Carafate 1 gm Tablet] 1 gm PO ACHS #60 tablet Referrals: KIKI MASTERS MD [ACTIVE STAFF] - Follow up tomorrow Scribe Attestation: 07/01/16 17:05 I personally performed the services described in the documentation, reviewed and edited the documentation which was dictated to the scribe in my presence, and it accurately records my words and actions. (RAFI PATEL) Scribe Documentation - Scribe Written by Clementine:: Clementine Infante, 07/01/2016 1322 acting as scribe for :: Alex <BRITTANY FONTAINE - Last Filed: 07/01/16 13:18>
[2016-07-01] MEDS ORDERED: SUCRALFATE 1 GM TABLET PO ONE (13:23)
[2016-07-01] MEDS ORDERED: LANSOPRAZOLE 30 MG TAB.RAP.DR PO ONE (16:00)
[2016-07-01 16:28] VITALS: BP 142/92
--- NOTE | 2016-07-01 18:39 | EKG REPORT ---
SEVERITY:- NORMAL ECG - SINUS RHYTHM : Confirmed by: Fernando Fofana MD 01-Jul-2016 18:39:02
== END 2016-07-01 16:27 | disposition home or self-care (01) ==
LOC: ER 11:10
DX: K44.9 Diaphragmatic hernia without obstruction or gangrene (principal); R07.89 Other chest pain; R06.02 Shortness of breath; I10 Essential (primary) hypertension; J44.9 Chronic obstructive pulmonary disease, unspecified; Z91.018 Allergy to other foods
CPT/HCPCS: 36415; 71020; 80053; 82550; 82553; 83690; 83735; 84484; 85025; 85610; 93005; 93010; 99291

== ENCOUNTER 2017-12-08 17:37 | Inpatient (IN) | payer BC, MEDICAID ==
[2017-12-08] MEDS ORDERED: DILTIAZEM HCL INJ 25 MG/5 ML VIAL ONE (18:05)
--- NOTE | 2017-12-08 18:23 | ER Document Report ---
ED General - General Mode of Arrival: Ambulatory Information source: Patient TRAVEL OUTSIDE OF THE [place] IN LAST 30 DAYS: No <JEANNA PATINO - Last Filed: 12/08/17 19:48> <RAELJOHN Jimy - Last Filed: 12/12/17 10:41> - General Chief Complaint: Chest Pressure Stated Complaint: CHEST PAIN Time Seen by Provider: 12/08/17 18:02 Notes: Patient is a 62 year old male with afib presents to the emergency department complaining of chest pain onset around 1600 today. Patient states he was in a heated argument when he began to have heart palpitations, chest pressure and feel light headed. Patient states he has had poor fluid intake lately and attributes these symptoms to not having enough fluids. He denies any recent falls, head trauma, vomiting or diarrhea. Patient is currently on Lisinorpil 10 mg and 50 mg of Metoprolol Extended Release. Patient states he is no longer on blood thinners due to a previous gastrointestinal bleed. (JEANNA PATINO) - Related Data Allergies/Adverse Reactions: pineapple [Pineapple] Allergy (Verified 12/08/17 17:39) warfarin sodium [From Coumadin] Adverse Reaction (Verified 12/08/17 17:39) Past Medical History - General Information source: Patient - Social History Smoking Status: Former Smoker Cigarette use (# per day): No Chew tobacco use (# tins/day): No Smoking Education Provided: No Frequency of alcohol use: None Family History: Reviewed & Not Pertinent, Other - Review of the history suggests there may be a family history of clotting disorders - Past Medical History Cardiac Medical History: Reports: Hx Atrial Fibrillation, Hx DVT - Possible history of same, Hx Hypercholesterolemia, Hx Hypertension Pulmonary Medical History: Reports: Hx COPD GI Medical History: Reports: Hx Hepatitis - Hepatitis A Musculoskeletal Medical History: Reports Hx Arthritis Psychiatric Medical History: Reports: Hx Depression - Mild Infectious Medical History: Reports: Hx Hepatitis - Hepatitis A Past Surgical History: Reports: Hx Orthopedic Surgery - Bilateral hips, knees, ankles, and elbow, Hx Tonsillectomy - Immunizations Hx Diphtheria, Pertussis, Tetanus Vaccination: Yes <JEANNA PATINO - Last Filed: 12/08/17 19:48> Review of Systems - Review of Systems Constitutional: No symptoms reported EENT: No symptoms reported Cardiovascular: See HPI, Chest pain, Palpitations, Lightheaded Respiratory: No symptoms reported Gastrointestinal: No symptoms reported Genitourinary: No symptoms reported Male Genitourinary: No symptoms reported Musculoskeletal: No symptoms reported Skin: No symptoms reported Hematologic/Lymphatic: No symptoms reported Neurological/Psychological: No symptoms reported -: Yes All other systems reviewed and negative <JEANNA PATINO - Last Filed: 12/08/17 19:48> Physical Exam - General General appearance: Appears well, Alert In distress: None - HEENT Head: Normocephalic, Atraumatic Eyes: Normal Conjunctiva: Normal Extraocular movements intact: Yes Pupils: PERRL Pharynx: Normal Neck: Normal - Respiratory Respiratory status: No respiratory distress Chest status: Nontender Breath sounds: Normal Chest palpation: Normal - Cardiovascular Rhythm: Irregularly irregular Heart sounds: Normal auscultation Murmur: No Friction rub: No Gallop: None auscultated Pulses: Normal: Radial - Abdominal Inspection: Normal Distension: No distension Bowel sounds: Normal Tenderness: Nontender Organomegaly: No organomegaly - Back Back: Normal - Extremities General upper extremity: Normal ROM General lower extremity: Normal ROM - Neurological Neuro grossly intact: Yes Cognition: Normal Orientation: AAOx4 [place] Coma Scale Eye Opening: Spontaneous [place] Coma Scale Verbal: Oriented [place] Coma Scale Motor: Obeys Commands [place] Coma Scale Total: 15 Speech: Normal - Psychological Associated symptoms: Normal affect, Normal mood - Skin Skin Temperature: Warm Skin Moisture: Dry Skin Color: Normal <JEANNA PATINO - Last Filed: 12/08/17 19:48> - Vital signs Vitals: Resp Pulse Ox 28 H 92 12/08/17 18:03 12/08/17 18:03 Course - Laboratory Result Diagrams: 12/08/17 18:05 12/08/17 18:05 <JEANNA PATINO - Last Filed: 12/08/17 19:48> - Laboratory Result Diagrams: 12/09/17 04:17 12/10/17 05:28 - Diagnostic Test Radiology reviewed: Reports reviewed <JOHN NOBLE - Last Filed: 12/12/17 10:41> - Re-evaluation Re-evalutation: 12/08/17 20:54 Patient was provided serial doses of 25 and 20 mg diltiazem. He endorses that he has not been drinking as much fluid feels dehydrated. A liter of fluids provided to him. His blood pressures remained soft in the emergency department systolic fluctuating between 80s and 1 teens. Will provide second fluid bolus. Patient denies any chest pain or dizziness at this time. Discussed case with Dr. Butcher who will accept the patient. Patient is on 10 mg an hour diltiazem drip. Electrolytes within normal limits TSH within normal limit. 12/08/17 20:56 Dr. Kelley is patient's calciminer (JOHN NOBLE) - Vital Signs Vital signs: Temp Pulse Resp BP Pulse Ox 97.8 F 68 16 108/61 94 12/11/17 15:47 12/11/17 15:47 12/11/17 15:47 12/11/17 15:47 12/11/17 15:47 - Laboratory Laboratory results interpreted by me: 12/08/17 12/08/17 12/08/17 18:05 18:05 20:58 Monocytes % 15.0 H BUN 30 H Creatinine 1.54 H Est GFR ( Amer) 55 L Est GFR (Non-Af Amer) 46 L Glucose 114 H ALT 19 L Urine Ketones TRACE H Ur Leukocyte Esterase TRACE H - EKG Interpretation by Me Additional EKG results interpreted by me: 12/08/17 21:16 17:54 Rate 174, afib RVR, normal axis, nonspecific ST-T wave abnormalities. (JOHN NOBLE) Critical Care Note - Critical Care Note Total time excluding time spent on procedures (mins): 35 <JOHN NOBLE - Last Filed: 12/12/17 10:41> Discharge <JEANNA PATINO - Last Filed: 12/08/17 19:48> - Discharge Admitting Provider: [facility] Admitted: [facility] <JOHN NOBLE - Last Filed: 12/12/17 10:41> - Discharge Clinical Impression: Atrial fibrillation with RVR Condition: Good Disposition: ADMITTED INPATIENT Scribe Attestation: 12/12/17 10:41 I personally performed the services described in the documentation, reviewed and edited the documentation which was dictated to the scribe in my presence, and it accurately records my words and actions. (JOHN NOBLE) Scribe Documentation - Scribe Written by Tiae:: Clementine Severino, 12/08/2017 18:55 acting as scribe for :: Real <JEANNA PATINO - Last Filed: 12/08/17 19:48>
[2017-12-08 18:30] LABS: ABSOLUTE BASOPHILS # (AUTO) 0.1 10^3/uL (0.0-0.2); ABSOLUTE EOSINOPHILS # (AUTO) 0.1 10^3/uL (0.0-0.6); ABSOLUTE LYMPHOCYTES (AUTO) 1.4 10^3/uL (0.5-4.7); ABSOLUTE MONOCYTES (AUTO) 1.4 10^3/uL (0.1-1.4); ABSOLUTE NEUT (AUTO) 6.6 10^3/uL (1.7-8.2); BASOPHILS % (AUTO) 0.6 % (0-2); HEMATOCRIT 48.1 % (37.9-51.0); HEMOGLOBIN 16.6 g/dL (13.5-17.0); LYMPHOCYTES % (AUTO) 14.2 % (13-45); MEAN CORPUSCULAR HEMOGLOBIN 32.2 pg (27.0-33.4); MEAN CORPUSCULAR HGB CONC 34.6 g/dL (32.0-36.0); MEAN CORPUSCULAR VOLUME 93 fl (80-97); PLATELET COUNT 215 10^3/uL (150-450); RED BLOOD COUNT 5.16 10^6/uL (4.35-5.55); RED CELL DISTRIBUTION WIDTH 13.1 % (11.5-14.0); SEGMENTED NEUTROPHILS % (AUTO) 69.2 % (42-78); TOTAL CELLS COUNTED % (AUTO) 100 %; WHITE BLOOD COUNT 9.5 10^3/uL (4.0-10.5)
[2017-12-08] MEDS: DILTIAZEM HCL/D5W 125 MG/125 ML RTUINJ IV PRN (18:49)
[2017-12-08 18:52] LABS: ALANINE AMINOTRANSFERASE 19 U/L (21-72); ALBUMIN 4.4 g/dL (3.5-5.0); ALKALINE PHOSPHATASE 70 U/L (38-126); ANION GAP 15 (5-19); ASPARTATE AMINO TRANSFERASE 20 U/L (17-59); BILIRUBIN,DIRECT 0.3 mg/dL (0.0-0.4); BILIRUBIN,TOTAL 1.2 mg/dL (0.2-1.3); BLOOD UREA NITROGEN 30 mg/dL (7-20); CALCIUM 9.5 mg/dL (8.4-10.2); CARBON DIOXIDE 25 mmol/L (22-30); CHLORIDE 102 mmol/L (98-107); GLUCOSE 114 mg/dL (75-110); POTASSIUM 4.2 mmol/L (3.6-5.0); SODIUM 142.4 mmol/L (137-145); TOTAL PROTEIN 7.8 g/dL (6.3-8.2)
[2017-12-08] MEDS ORDERED: DILTIAZEM HCL INJ 25 MG/5 ML VIAL IV ONE (19:32)
--- NOTE | 2017-12-08 19:42 | RADIOLOGY REPORT (SQ) ---
EXAM DESCRIPTION: CHEST SINGLE VIEW COMPLETED DATE/TIME: 12/08/2017 6:55 pm REASON FOR STUDY: chest pain COMPARISON: 07/01/2016 TECHNIQUE: Single frontal radiographic view of the chest acquired. NUMBER OF VIEWS: One view. LIMITATIONS: None. FINDINGS: LUNGS AND PLEURA: No pneumothorax. No consolidation or pleural effusion. MEDIASTINUM AND HILAR STRUCTURES: Stable, hiatus hernia again noted. HEART AND VASCULAR STRUCTURES: Stable. BONES: No acute findings. HARDWARE: None in the chest. OTHER: No other significant finding. IMPRESSION: NO ACUTE FINDINGS. TECHNICAL DOCUMENTATION: JOB ID: [id number] [id number] 2010 [employer]- All Rights Reserved Reading location - IP/workstation name: [email or web address]
--- NOTE | 2017-12-08 20:45 | EKG REPORT ---
SEVERITY:- ABNORMAL ECG - ATRIAL FIBRILLATION WITH RAPID V-RATE REPOLARIZATION ABNORMALITY, PROB RATE RELATED : Confirmed by: Janelle Bell MD 08-Dec-2017 20:44:34
[2017-12-08] MEDS ORDERED: NORMAL SALINE 1000 ML 1,000 ML IV ONE (20:53)
[2017-12-08 21:19] LABS: APPEARANCE,URINE SLIGHTLY-CLOUDY; BILIRUBIN,URINE NEGATIVE (NEGATIVE); COLOR,URINE YELLOW; GLUCOSE, URINE NEGATIVE (NEGATIVE); KETONES,URINE TRACE mg/dL (NEGATIVE); LEUKOCYTE ESTERASE,URINE TRACE (NEGATIVE); NITRITE,URINE NEGATIVE (NEGATIVE); PROTEIN,URINE NEGATIVE (NEGATIVE); URINE SPECIFIC GRAVITY 1.015; UROBILINOGEN,URINE NEGATIVE mg/dL (<2.0)
[2017-12-08] MEDS ORDERED: PROMETHAZINE HCL 25 MG TABLET PO PRN (21:53)
[2017-12-08] MEDS ORDERED: ACETAMINOPHEN 325 MG TABLET PO PRN (21:53)
[2017-12-08] MEDS ORDERED: PROMETHAZINE HCL INJ 25 MG/1 ML VIAL IV PRN (21:53)
[2017-12-08] MEDS ORDERED: TEMAZEPAM 7.5 MG CAPSULE PO PRN (21:53)
[2017-12-08] MEDS ORDERED: MAG HYDROX/AL HYDROX/SIMETH SUSP 30 ML UDCUP PO PRN (21:53)
[2017-12-08] MEDS ORDERED: DIGOXIN INJ 0.5 MG/2 ML AMPULE IV ONE (22:07)
[2017-12-08] MEDS ORDERED: HEPARIN SOD (PORCINE) 5,000 UNIT/ML 1 ML SYRINGE SUBCUT ONE (22:15)
--- NOTE | 2017-12-08 22:31 | PDOC H&P ---
History of Present Illness Admission Date/PCP: 12/08/17 21:21 TIAGO LUNA NP Patient complains of: Chest tightness History of Present Illness: JOVAN GRIDER SR is a 62 year old male with history of paroxysmal atrial fibrillation not on anticoagulation. Patient came to the emergency department after a heated argument when he started feeling diffuse chest heaviness radiated to the left upper extremity associated with palpitations, shortness of breath, decreased energy and dizziness. At some point he started seeing everything black with a near syncopal episode. Patient drove to the emergency department and initial heart rate was in between 150-170s Denies fever, chills, nausea, vomiting, cough, wheezing, phlegm. Complains of some sore throat as he has been having cold like symptoms for the last few days. Patient does not follow with any support architect. Patient is not on anticoagulation as had an episode of GI bleeding on June this year were they have to transfuse 3 units of blood. Given 2 doses of IV Cardizem 25 and 20 mg followed by Cardizem infusion, his heart rate is a still fluctuating and his blood pressure has decreased to 90s over 70s EKG shows rapid atrial fibrillation with a rate in the 150s with ST depressions in V4, V5 and V6. At the time I evaluated the patient he was asymptomatic. Past Medical History Cardiac Medical History: Reports: Atrial Fibrillation, DVT - Possible history of same, Hyperlipidema, Hypertension Denies: Congestive Heart Failure, Myocardial Infarction, Pulmonary Embolism Pulmonary Medical History: Reports: Chronic Obstructive Pulmonary Disease (COPD) Denies: Asthma, Sleep Apnea Neurological Medical History: Denies: Seizures Endocrine Medical History: Denies: Diabetes Mellitus Type 1, Diabetes Mellitus Type 2, Hyperthyroidism, Hypothyroidism GI Medical History: Reports: Hepatitis - Hepatitis A Denies: Cirrhosis Musculoskeltal Medical History: Reports: Arthritis Psychiatric Medical History: Reports: Depression - Mild Infectious Medical History: Denies: Clostridium Difficile, Methicillin-Resistant Staph Aureus Past Surgical History Past Surgical History: Reports: Orthopedic Surgery - Bilateral hips, knees, ankles, and elbow, Tonsillectomy Social History Information Source: Patient Smoking Status: Former Smoker Frequency of Alcohol Use: None Hx Recreational Drug Use: No Drugs: None Hx Prescription Drug Abuse: No Family History Family History: Reviewed & Not Pertinent, Other - Review of the history suggests there may be a family history of clotting disorders Family History: Parents of cancer, son with history of pulmonary embolus, sister with clotting problems Parental Family History Reviewed: Yes - As above Children Family History Reviewed: Yes Sibling(s) Family History Reviewed.: Yes Medication/Allergy Home Medications: Metoprolol Succinate [Toprol Xl 50 mg Tab.sr] 50 mg PO DAILY #30 tab.sr.24h 01/21 Lisinopril 20 mg PO DAILY 06/27/16 Atorvastatin Calcium [Lipitor 40 mg Tablet] 40 mg PO QHS 12/08/17 Allergies/Adverse Reactions: pineapple [Pineapple] Allergy (Verified 12/08/17 17:39) warfarin sodium [From Coumadin] Adverse Reaction (Verified 12/08/17 17:39) Review of Systems Review of Systems: As outlined in the HPI, others negative Physical Exam Vital Signs: Temp Pulse Resp BP Pulse Ox 12 100/88 H 96 12/08/17 21:10 12/08/17 21:10 12/08/17 21:10 Additional comments: General appearance: Well-developed, well-nourished, alert and cooperative, and appears to be in no acute distress Head: Normocephalic Eyes: PEERL, EOMI, vision is grossly intact. Ears: External auditory canal and tympanic membranes clear, hearing grossly intact. Nose: No nasal discharge. Throat: Oral cavity and pharynx normal. No inflammation, swelling, exudate or lesions. Neck: Neck supple, nontender without lymphadenopathy, masses or thyromegaly. Cardiac: Normal S1 and S2. No S3, S4 or murmurs. Rhythm is irregular and tachycardic. There is mild pedal edema, cyanosis or pallor. Extremities are warm and well perfused. Capillary refill is less than 2 seconds. No carotid bruits. Lungs: Lateral diffused rales, mild rhonchi, no wheezing or diminished breath sounds. Not using accessory muscles. Abdomen: Positive bowel sounds. Soft. Nondistended, nontender. No guarding or rebound. No masses. No hepatosplenomegaly Extremities: No significant deformity or joint abnormality. Peripheral pulses intact. No varicosities. Neurological: Cranial nerves II through XII grossly intact. Strength and sensation symmetric and intact throughout. Reflexes 2+ throughout. Skin: Skin normal color, texture and turgor with no lesions or eruptions, warm and dry. Psychiatric: The mental examination revealed the patient was oriented to person , place, and time. The patient was able to demonstrate good judgment on recent , without hallucinations, abnormal affect or abnormal behaviors. Results Laboratory Results: 12/08/17 12/08/17 12/08/17 18:05 18:05 18:05 WBC 9.5 RBC 5.16 Hgb 16.6 Hct 48.1 MCV 93 MCH 32.2 MCHC 34.6 RDW 13.1 Plt Count 215 Seg Neutrophils % 69.2 Lymphocytes % 14.2 Monocytes % 15.0 H Eosinophils % 1.0 Basophils % 0.6 Absolute Neutrophils 6.6 Absolute Lymphocytes 1.4 Absolute Monocytes 1.4 Absolute Eosinophils 0.1 Absolute Basophils 0.1 Sodium 142.4 Potassium 4.2 Chloride 102 Carbon Dioxide 25 Anion Gap 15 BUN 30 H Creatinine 1.54 H Est GFR ( Amer) 55 L Est GFR (Non-Af Amer) 46 L Glucose 114 H Calcium 9.5 Magnesium 2.0 Total Bilirubin 1.2 Direct Bilirubin 0.3 AST 20 ALT 19 L Alkaline Phosphatase 70 Troponin I 0.014 Total Protein 7.8 Albumin 4.4 Urine Color Urine Appearance Urine pH Ur Specific [place] Urine Protein Urine Glucose (UA) Urine Ketones Urine Blood Urine Nitrite Urine Bilirubin Urine Urobilinogen Ur Leukocyte Esterase Urine WBC (Auto) Urine RBC (Auto) U Hyaline Cast (Auto) Squamous Epi Cells Auto Urine Mucus (Auto) Urine Ascorbic Acid 12/08/17 20:58 WBC RBC Hgb Hct MCV MCH MCHC RDW Plt Count Seg Neutrophils % Lymphocytes % Monocytes % Eosinophils % Basophils % Absolute Neutrophils Absolute Lymphocytes Absolute Monocytes Absolute Eosinophils Absolute Basophils Sodium Potassium Chloride Carbon Dioxide Anion Gap BUN Creatinine Est GFR ( Amer) Est GFR (Non-Af Amer) Glucose Calcium Magnesium Total Bilirubin Direct Bilirubin AST ALT Alkaline Phosphatase Troponin I Total Protein Albumin Urine Color YELLOW Urine Appearance SLIGHTLY-CLOUDY Urine pH 5.0 Ur Specific [place] 1.015 Urine Protein NEGATIVE Urine Glucose (UA) NEGATIVE Urine Ketones TRACE H Urine Blood NEGATIVE Urine Nitrite NEGATIVE Urine Bilirubin NEGATIVE Urine Urobilinogen NEGATIVE Ur Leukocyte Esterase TRACE H Urine WBC (Auto) 6 Urine RBC (Auto) 0 U Hyaline Cast (Auto) 12 Squamous Epi Cells Auto 1 Urine Mucus (Auto) MANY Urine Ascorbic Acid NEGATIVE EKG Comments: Rapid atrial fibrillation, heart rate 150s, ST depressions V4, V5 and V6 Impressions: Chest X-Ray 12/08/17 00:00 IMPRESSION: NO ACUTE FINDINGS. Assessment & Plan - Diagnosis (1) Atrial fibrillation with RVR Is this a current diagnosis for this admission?: Yes Plan: Patient comes with rapid atrial fibrillation after heated argument at home, initial heart rate between 150s-170s. Patient has been initiated on Cardizem infusion, will continue with his and will give 250 mg of IV digoxin as his blood pressure is trending down to 90s over 60s. Patient is not on anticoagulation has history of GI bleeding he is not even on aspirin. Will place in cardiology consultation with Dr. Bell for evaluation and further recommendations. Cardiac markers x3. Continues telemetry monitoring. (2) Chronic obstructive pulmonary disease (COPD) Qualifiers: COPD type: unspecified COPD Qualified Code(s): J44.9 - Chronic obstructive pulmonary disease, unspecified Is this a current diagnosis for this admission?: Yes Plan: Patient with no current respiratory symptoms. Nebulizer treatments as needed. (3) HTN (hypertension) Qualifiers: Hypertension type: essential hypertension Qualified Code(s): I10 - Essential (primary) hypertension Is this a current diagnosis for this admission?: Yes Plan: Patient has been borderline hypotensive, for now we are going to hold his lisinopril but will continue with metoprolol for heart rate control. - Time Time Spent: 50 to 70 Minutes Anticipated discharge: Home - Inpatient Certification Based on my medical assessment, after consideration of the patient's comorbidities, presenting symptoms, or acuity I expect that the services needed warrant INPATIENT care.: Yes I certify that my determination is in accordance with my understanding of Medicare's requirements for reasonable and necessary INPATIENT services [42 CFR 412.3e].: Yes Medical Necessity: Risk of Complication if Not Cared For in Hospital - Plan Summary Plan Summary: Case discussed with patient and who is at the bedside, agree with plan. DVT prophylaxis: Heparin
[2017-12-09] MEDS ORDERED: HEPARIN SOD (PORCINE) 5,000 UNIT/ML 1 ML SYRINGE ONE (00:44)
[2017-12-09] MEDS ORDERED: METOPROLOL TARTRATE PF/INJ 5 MG/5 ML SDV IV ONE ×3 (01:22→05:30)
[2017-12-09] MEDS ORDERED: DILTIAZEM HCL/D5W 125 MG/125 ML RTUINJ IV ONE (04:01)
[2017-12-09] MEDS: DILTIAZEM HCL/D5W 125 MG/125 ML RTUINJ IV PRN (04:04)
[2017-12-09 04:29] LABS: HEMATOCRIT 42.1 % (37.9-51.0); MEAN CORPUSCULAR HEMOGLOBIN 31.7 pg (27.0-33.4); MEAN CORPUSCULAR HGB CONC 33.9 g/dL (32.0-36.0); MEAN CORPUSCULAR VOLUME 94 fl (80-97); PLATELET COUNT 185 10^3/uL (150-450); RED CELL DISTRIBUTION WIDTH 13.3 % (11.5-14.0); WHITE BLOOD COUNT 7.9 10^3/uL (4.0-10.5)
[2017-12-09 04:30] LABS: HEMOGLOBIN 14.3 g/dL (13.5-17.0)
[2017-12-09 04:31] LABS: PROTHROMBIN TIME 14.7 SEC (11.4-15.4)
[2017-12-09 04:32] LABS: PARTIAL THROMBOPLASTIN TIME 32.8 SEC (23.5-35.8)
[2017-12-09 04:54] LABS: ANION GAP 10 (5-19); BLOOD UREA NITROGEN 21 mg/dL (7-20); CALCIUM 8.5 mg/dL (8.4-10.2); CARBON DIOXIDE 21 mmol/L (22-30); CHLORIDE 111 mmol/L (98-107); GLUCOSE 103 mg/dL (75-110); POTASSIUM 4.2 mmol/L (3.6-5.0); SODIUM 141.9 mmol/L (137-145)
[2017-12-09] MEDS: HEPARIN SOD (PORCINE) 5,000 UNIT/ML 1 ML SYRINGE SUBCUT SCH ×3 (05:40→21:54)
--- NOTE | 2017-12-09 12:40 | EKG REPORT ---
SEVERITY:- ABNORMAL ECG - SINUS RHYTHM NONSPECIFIC INTRAVENTRICULAR CONDUCTION DELAY : Confirmed by: Janelle Bell MD 09-Dec-2017 12:39:28
--- NOTE | 2017-12-09 12:40 | EKG REPORT ---
SEVERITY:- NORMAL ECG - SINUS RHYTHM : Confirmed by: Janelle Bell MD 09-Dec-2017 12:39:32
[2017-12-09] MEDS: SOTALOL HCL 80 MG TABLET PO SCH ×2 (13:35→21:53)
--- NOTE | 2017-12-09 18:09 | PDOC PROGRESS REPORT ---
Subjective Progress Note for:: 12/09/17 Subjective:: This pleasant 64-year-old gentleman was admitted for acute exacerbation of his atrial fibrillation with rapid ventricular response. With medications he has converted back to sinus rhythm with good rate control. He is not having any chest pain, pressure or palpitations. There is no difficulty breathing. Towards the end of the encounter the patient did have several questions regarding leg cramps. He states that he will often get leg cramps that occur mostly in the calf. Occasionally there will include the upper leg musculature. He states that he takes potassium supplements to try and reduce the cramping but this is not always effective. Reason For Visit: RAPID ATRIAL FIBRILLATION Physical Exam Vital Signs: Temp Pulse Resp BP Pulse Ox 98.9 F 76 19 112/72 96 12/09/17 15:28 12/09/17 15:28 12/09/17 15:28 12/09/17 15:28 12/09/17 15:28 Intake & Output 12/08/17 12/09/17 12/10/17 06:59 06:59 06:59 Intake Total 1152 734 Output Total 350 Balance 802 734 Weight 106.2 kg General appearance: PRESENT: no acute distress, cooperative, obese, well- developed, well-nourished Head exam: PRESENT: atraumatic, normocephalic Eye exam: PRESENT: conjunctiva pink, EOMI. ABSENT: scleral icterus Ear exam: PRESENT: normal external ear exam Mouth exam: PRESENT: moist, neck supple, tongue midline Neck exam: PRESENT: full ROM. ABSENT: carotid bruit, JVD, lymphadenopathy Respiratory exam: PRESENT: clear to auscultation florin, symmetrical, unlabored. ABSENT: rales, rhonchi, wheezes Cardiovascular exam: PRESENT: RRR, +S1, +S2 Pulses: PRESENT: normal radial pulses, normal dorsalis pedis pul GI/Abdominal exam: PRESENT: normal bowel sounds, soft. ABSENT: distended, tenderness Extremities exam: PRESENT: full ROM. ABSENT: calf tenderness, pedal edema Musculoskeletal exam: PRESENT: ambulatory, normal inspection Neurological exam: PRESENT: alert, awake, oriented to person, oriented to place , oriented to time, oriented to situation Psychiatric exam: PRESENT: appropriate affect, normal mood. ABSENT: agitated, anxious Skin exam: PRESENT: dry, intact, warm. ABSENT: cyanosis, rash Results Laboratory Results: 12/09/17 04:17 12/09/17 04:17 12/09/17 12/09/17 04:17 04:17 WBC 7.9 RBC 4.50 Hgb 14.3 D Hct 42.1 MCV 94 MCH 31.7 MCHC 33.9 RDW 13.3 Plt Count 185 Sodium 141.9 Potassium 4.2 Chloride 111 H Carbon Dioxide 21 L Anion Gap 10 BUN 21 H Creatinine 0.88 Est GFR ( Amer) > 60 Est GFR (Non-Af Amer) > 60 Glucose 103 Calcium 8.5 Magnesium 2.0 12/08/17 12/08/17 12/09/17 22:28 22:28 04:17 Troponin I 0.037 0.035 NT-Pro-B Natriuret Pep 299 12/09/17 11:03 Troponin I 0.022 NT-Pro-B Natriuret Pep Impressions: Chest X-Ray 12/08/17 00:00 IMPRESSION: NO ACUTE FINDINGS. Assessment & Plan - Diagnosis (1) Atrial fibrillation with RVR Is this a current diagnosis for this admission?: Yes Plan: The patient was treated with continuous diltiazem infusion as well as a single dose of digoxin. He also received beta-blockade and this seemed to be most effective. Cardiology saw him this morning and initiated therapy with sotalol. Per the lasting room machine operator's recommendation he will need to be observed on telemetry for 48 hours with a new initiation of this medication. He is in fact back in sinus rhythm with good rate control. He feels quite well. (2) Leg cramps Is this a current diagnosis for this admission?: Yes Plan: During this encounter the patient reported chronic and frequent leg cramps. They typically are in the calves and can include musculature above the knee. We discussed potential etiologies. The patient does take potassium but does not feel that it helps consistently. I showed him some leg stretching that can be done in bed. I encouraged him to try this in the morning and at night. I will also check his potassium, magnesium and calcium levels with his morning blood work. - Time Time Spent with patient: 25-34 minutes Medications reviewed and adjusted accordingly: Yes Anticipated discharge: Home
--- NOTE | 2017-12-09 19:58 | XCELERA REPORT ---
[address] [address] Transthoracic Echocardiogram Report Name: JOVAN GRIDER SR Age: 62 yrs Gender: Male : 1955 Patient Status: Inpatient Patient Location: [address] [place] [address] Study Date: 12/09/2017 01:08 PM Height: 76 in Weight: 234 lb BSA: 2.4 m2 Procedure: A two-dimensional transthoracic echocardiogram with color flow and Doppler was performed. Study Quality: Fair. Reason For Study: aTRIAL fIB / MURMUR History: aTRIAL fIB / MURMUR. Ordering Physician: JANELLE MICHEL Performed By: Abraham Izquierdo Interpretation Summary The left ventricle is normal in size. There is normal left ventricular wall thickness. LV EF is > than 60% Left ventricular systolic function is normal. Doppler measurements suggest normal left ventricular diastolic function The left ventricular wall motion is normal. There is no thrombus. There is no ventricular septal defect visualized. The right ventricle is normal in size and function. The right atrium is normal. The left atrial size is normal. The interatrial septum is intact with no evidence for an atrial septal defect. There is no evidence of mitral valve prolapse. There is no mitral valve stenosis. There is no vegetation seen on the mitral valve. There is a trace amount of mitral regurgitation The aortic valve is trileaflet. The aortic valve opens well. There is no aortic valvular vegetation. There is no aortic valve stenosis There is no LVOT obstruction. No aortic regurgitation is present. There is no tricuspid stenosis. There is a trace to mild amount of tricuspid regurgitation There is mild pulmonary hypertension by echo RVSP max is 35 mm of Hg , with RA mean of 10.(RVSP= 30 to 35 mm of Hg , with RA mean of 5 to 20.). There is no pulmonic valvular stenosis. There is a trace amount of pulmonic regurgitation The aortic root is normal size. The inferior vena cava appeared normal and decreased > 50% with respiration (RAP 5-10 mmHg) There is no pericardial effusion. MMode/2D Measurements & Calculations RVDd: 3.3 cm LVIDd: 5.5 cm FS: 32.4 % Ao root diam: 3.5 cm IVSd: 0.75 cm LVIDs: 3.7 cm EDV(Teich): 149.1 ml Ao root area: 9.4 cm2 LVPWd: 0.75 cm ESV(Teich): 59.5 ml LA dimension: 2.5 cm EF(Teich): 60.1 % Doppler Measurements & Calculations MV E max yunior: MV P1/2t max yunior: Ao V2 max: LV V1 max P.1 cm/sec 98.7 cm/sec 118.4 cm/sec 4.2 mmHg MV A max yunior: MV P1/2t: 74.8 msec Ao max PG: LV V1 max: 55.1 cm/sec MVA(P1/2t): 2.9 cm2 5.6 mmHg 102.6 cm/sec MV E/A: 1.8 MV dec slope: 386.8 cm/sec2 MV dec time: 0.24 sec PA V2 max: PI end-d yunior: TR max yunior: MV P1/2t-pr_phl: 92.8 cm/sec 158.5 cm/sec 247.0 cm/sec 74.8 msec PA max PG: TR max P.4 mmHg 24.4 mmHg Left Ventricle The left ventricle is normal in size. There is normal left ventricular wall thickness. LV EF is > than 60%. Left ventricular systolic function is normal. Doppler measurements suggest normal left ventricular diastolic function. The left ventricular wall motion is normal. There is no thrombus. There is no ventricular septal defect visualized. Right Ventricle The right ventricle is normal in size and function. Atria The right atrium is normal. The left atrial size is normal. The interatrial septum is intact with no evidence for an atrial septal defect. Mitral Valve There is no evidence of mitral valve prolapse. There is no vegetation seen on the mitral valve. There is no mitral valve stenosis. There is a trace amount of mitral regurgitation. Aortic Valve The aortic valve is trileaflet. The aortic valve opens well. There is no aortic valvular vegetation. There is no aortic valve stenosis. There is no LVOT obstruction. No aortic regurgitation is present. Tricuspid Valve There is no tricuspid stenosis. There is a trace to mild amount of tricuspid regurgitation. There is mild pulmonary hypertension by echo. RVSP max is 35 mm of Hg , with RA mean of 10.(RVSP= 30 to 35 mm of Hg , with RA mean of 5 to 20.). Pulmonic Valve There is no pulmonic valvular stenosis. There is a trace amount of pulmonic regurgitation. Great Vessels The aortic root is normal size. The inferior vena cava appeared normal and decreased > 50% with respiration (RAP 5-10 mmHg). Effusions There is no pericardial effusion. : JANELLE MICHEL > Janelle Michel
--- NOTE | 2017-12-09 23:13 | PDOC CONSULTATION ---
Consultation-Blank Consultation: CARDIOLOGY CONSULTATION by Dr. Janelle Bell on 12/09/2017. Patient seen at 11:45 AM. A total of 60 minutes spent on this patient more than 50% of the time spent in direct patient care. His medications have been reviewed. HISTORY PRESENT ILLNESS: Patient with a history of hypertension and history of proximal atrial fibrillation, who is not on anticoagulation due to prior severe bleeding from a peptic ulcer due to Coumadin with symptoms of palpitations such a history of paroxysmal atrial fibrillation off and on. The patient had a heated argument with his significant other/spouse and subsequently developed palpitations and dizziness and near syncope. He came to the emergency room and was found to be in atrial fibrillation with rapid ventricular response and was placed on a Cardizem drip this morning the patient is converted to sinus rhythm. The patient states that he had no chest pain discomfort or shortness of breath. Apart from the dizziness and near syncope. He also states that every time he gets agitated emotionally upset or angry he has these rapid palpitations. Usually they subside by themselves, but this time there was severe and did not subside by themselves. There is no PND orthopnea or leg edema there is no dayami syncope although the fifth patient had near syncopal episode. As mentioned earlier in spite of this the patient has no history of TIA or CVA. There is no history of leg edema. There is no history of chest pain or discomfort. There is no shortness of breath. PAST MEDICAL HISTORY: He has a history of hypertension. He has a history of proximal atrial fibrillation. He is not on anticoagulation due to severe bleeding due to Coumadin in the past. The patient has no history of asthma or COPD. There is no history of TIA or CVA. There is no history of diabetes mellitus or thyroid disease. He has a past history of hepatitis A from which she has cured. SURGICAL HISTORY: The patient has orthopedic surgery of his hips on both sides, bilateral knees. He has also had tonsillectomy. SOCIAL HISTORY: The patient does not smoke. There is no history of EtOH abuse. There is no history of street drug abuse. ALLERGIES: The patient claims he is allergic to Coumadin, but this is due to the patient's GI bleed. DISPOSITION: The patient is a full code his is a surrogate healthcare decision maker. FAMILY HISTORY: Son history history of clotting disorder, has had pulmonary embolism, and also myocardial infarction due to thrombus. There is also a history of malignancy in the family. REVIEW of SYSTEMS: HEAD: Denies headaches or head injury. EYES: No history of amblyopia diplopia. No history of amaurosis fugax. EARS: No history of hearing loss. No history of tinnitus. No vertigo. NOSE: No history of hayfever. No history of nosebleeds. No history of nasal polyposis. MOUTH: No history of altered taste sensation. No ulcers in the mouth. No bleeding from the gums. THROAT: No history of odynophagia or dysphagia. No history of recurrent sore throats. SKIN: No history of pruritus. No history of yellowish discoloration of the skin. No history of psoriasis or skin cancer. NECK: No history of goiter. No history of symptoms of C-spine arthritis. No swelling in the next. LUNGS: No history of asthma COPD. No history of sleep apnea no history of pulmonary embolism. No history of symptoms of upper or lower respiratory tract infection. No cough or sputum production. No wheezing. No hemoptysis. No pleuritic chest pain. CARDIAC: History of hypertension present no history of CO or anginal symptoms. In June 2016 the patient had a negative Cardiolite stress test for ischemia or CO. He has no history of congestive heart failure. History of proximal atrial fibrillation. The patient used to be on Coumadin, which is stopped due to significant bleeding from a peptic ulcer. The patient will not go on anticoagulation. The patient's corrected Delano vas 2 score is 1. The patient cannot tolerate oral aspirin. There is no history of PND orthopnea. The patient had near syncope but no syncope. There is no history of leg edema. No history of congestive heart failure. No history of sudden . GI: History of hepatitis A cured. No history of fatty food intolerance. No altered bowel movements. History of past GI bleed due to peptic ulcer disease, with no recurrence. Occasional symptoms of GERD. No history of altered bowel movements. No history of jaundice. No recurrence of GI bleed. MUSCULOSKELETAL: Denies arthritis or collagen vascular disease. ENDOCRINE: No history of diabetes mellitus or thyroid disease. No history of polydipsia polyuria no history of heat or cold intolerance. METABOLIC: No history of obesity. No history of gout. He is on Lipitor for a history of hyperlipidemia. RENAL: No history of symptoms of enlarged prostate. No history of chronic kidney disease. No symptoms or UTI. No history of recurrent UTIs. No history of hematuria pyuria or dysuria. IMPORT/EXPORT CLERK: No history of TIA or CVA. No history of headaches migraines or seizures. No gait imbalance. PSYCHIATRIC: No history of anxiety or depression no history of homicidal or suicidal ideation. Hematological: No history of clotting disorders. No history of bleeding diathesis although he had bleeding with Coumadin. No blood dyscrasias. VASCULAR: No history of calf or buttock claudication. No history of DVT. PHYSICAL EXAMINATION: The patient is well-built and well-nourished. In no acute distress. He is well-groomed. 12/09/17 11:45 Temperature 98.2 F Temperature Oral Source Pulse Rate 73 Respiratory 19 Rate Blood Pressure 118/75 Blood Pressure 89 Mean BP Location Left Arm BP Position Supine O2 Sat by Pulse 95 Oximetry Oxygen Delivery Room Air Method HEAD: Head is atraumatic normocephalic. EYES: Pupils are equal round regular reactive to light accommodation. Extraocular movements are normal. There is no clinical pallor. There is no scleral icterus. EARS: External auditory canals are clear. There is no inflammation of the tympanic membrane there is no lesions on the pennae. NOSE: No deviated nasal septum. No inflammation of the nasal mucous membrane. MOUTH: Mucous members of mouth are moist tongue is moist there is no ulcers there is no bleeding from the gums. THROAT: There is no redness of the oropharynx. There is no exudates in the throat. SKIN: There is no petechia or ecchymosis. There is no skin rashes or skin lesions. NECK: Neck is supple there is no JVD carotids are equal there is no bruit. There is no lymphadenopathy there is no goiter. There is no accessory muscles of respiration in use. Trachea central. LUNGS: Clear to auscultation percussion, without any rhonchi rales or wheezing. There is no chest wall tenderness. HEART: S1-S2 is heard. S1 is of normal intensity. There is no S3 gallop. There is no S4 gallop. There is systolic murmur left sternal border and the apex without radiation. There is no rub. ABDOMEN: Is soft nontender. There is no hepatosplenomegaly, and bowel sounds well heard. There is no rebound guarding or rigidity. There is no masses. EXTREMITIES: Femorals are well felt. There is no femoral bruits. Leg pulses are well felt. There is no pedal edema. There is no DVT or cellulitis. There is no calf tenderness. There is no sinus or clubbing. Capillary refill is normal. IMPORT/EXPORT CLERK: The patient is conscious awake alert oriented x3 with no focal deficits. PSYCHIATRIC: The patient judgment and insight are intact his affect is normal.. 12/08/17 12/08/17 12/08/17 18:05 22:28 22:28 WBC Hgb Hct Plt Count PT INR APTT Sodium Potassium Chloride Carbon Dioxide BUN Creatinine Est GFR (Non-Af Amer) Glucose Calcium Magnesium Troponin I 0.037 NT-Pro-B Natriuret Pep 299 TSH 1.70 12/09/17 12/09/17 12/09/17 04:17 04:17 04:17 WBC 7.9 Hgb 14.3 D Hct 42.1 Plt Count 185 PT 14.7 INR 1.10 APTT 32.8 Sodium Potassium Chloride Carbon Dioxide BUN Creatinine Est GFR (Non-Af Amer) Glucose Calcium Magnesium Troponin I 0.035 NT-Pro-B Natriuret Pep TSH 12/09/17 12/09/17 04:17 11:03 WBC Hgb Hct Plt Count PT INR APTT Sodium 141.9 Potassium 4.2 Chloride 111 H Carbon Dioxide 21 L BUN 21 H Creatinine 0.88 Est GFR (Non-Af Amer) > 60 Glucose 103 Calcium 8.5 Magnesium 2.0 Troponin I 0.022 NT-Pro-B Natriuret Pep TSH 12/08/17 18:05 Diltiazem HCl [Cardizem Inj 25 mg/5 ml Vial] 25 mg .ROUTE .STK-MED ONE 12/08/17 19:32 Diltiazem HCl [Cardizem Inj 25 mg/5 ml Vial] 20 mg IV NOW ONE 12/08/17 20:53 Normal Saline 1000 ml [NaCl 0.9% 1000 ml IV Soln] 1,000 ml IV BOLUS 12/08/17 21:53 Acetaminophen [Tylenol 325 mg Tablet] 650 mg PO Q4HP PRN Mag Hydrox/Al Hydrox/Simeth [Maalox Plus Susp 30 Udcup] 30 ml PO Q6HP PRN Promethazine HCl [Phenergan 25 mg Tablet] 25 mg PO Q4HP PRN Promethazine HCl [Phenergan Inj 25 mg/1 ml Vial] 25 mg IV Q4HP PRN Temazepam [Restoril 7.5 mg Capsule] 7.5 mg PO HSP PRN 12/08/17 22:07 Digoxin Inj [Lanoxin Inj 0.5 mg/2 ml Ampule] 0.25 mg IV NOW ONE 12/08/17 22:15 Heparin Sodium,Porcine [Heparin Inj 5,000 Units/ml 1 ml Syringe] 5,000 unit SUBCUT NOW ONE 12/09/17 00:44 Heparin Sodium,Porcine [Heparin Inj 5,000 Units/ml 1 ml Syringe] 5,000 unit .ROUTE .STK-MED ONE 12/09/17 01:22 Metoprolol Tartrate [Lopressor Inj/Pf 5 mg/5 ml Sdv] 5 mg IV .STK-MED ONE 12/09/17 01:30 Metoprolol Tartrate [Lopressor Inj/Pf 5 mg/5 ml Sdv] 5 mg IV NOW ONE 12/09/17 04:01 Diltiazem HCl/D5w [Cardizem RTU Inj 125 mg-D5w 125 ml Premix] 125 mg in 125 ml IV .STK-MED 12/09/17 05:30 Metoprolol Tartrate [Lopressor Inj/Pf 5 mg/5 ml Sdv] 5 mg IV NOW ONE 12/09/17 06:00 Heparin Sodium,Porcine [Heparin Inj 5,000 Units/ml 1 ml Syringe] 5,000 unit SUBCUT Q8 12/09/17 12:00 Sotalol HCl [Betapace 80 mg Tablet] 40 mg PO Q12 FIRST EKG shows atrial fibrillation with rapid ventricular response, with diffuse rate related repolarization abnormality. Subsequent EKG shows sinus rhythm with minor nonspecific IVCD which is borderline. The patient's chest x- ray is negative for any acute process. The patient echocardiogram shows normal left ventricular wall thickness, chamber size, wall motion and ejection fraction. The right ventricle systolic pressure is 35 mmHg. There is no significant regurgitant lesions there is no stenotic lesions. There is no pericardial effusion. IMPRESSION/RECOMMENDATION: 1. Paroxysmal atrial fibrillation. At present patient sinus rhythm. In view of the patient's contraindication for anticoagulation, will continue patient on aspirin, stop the patient's Cardizem drip and start the patient on sotalol 40 mg p.o. every 12 hours. Will watch the patient for any proarrhythmia development, and follow the patient's QTC on daily EKGs. The benefits and side effects of sotalol and the propensity for developing cardiac arrhythmias have been discussed with patient and the patient's . 2. Hypertension well controlled. Continue current antihypertensives. 3. Note that the patient has contraindication for anticoagulation. Hence will try to keep the patient in sinus rhythm on sotalol. Sotalol has been chosen since this is cheaper and has lesser side effects than amiodarone. 4. Hyperlipidemia.? Cholesterol status. Will obtain fasting lipid levels in the a.m. Medications reviewed and medications adjusted and new medications added discussed with the attending physician on the case. Discussed the management plan with the patient's attending physician during this admission. Discussed with the patient and patient's also. Medical decision making is of high complexity. 60 minutes spent on this patient more than 50% of time spent in direct patient care. We will follow with you. The echo findings and other EKG and lab findings have been discussed with the patient and patient's .
[2017-12-10] MEDS: HEPARIN SOD (PORCINE) 5,000 UNIT/ML 1 ML SYRINGE SUBCUT SCH ×3 (06:12→21:09)
[2017-12-10 06:28] LABS: ANION GAP 12 (5-19); BLOOD UREA NITROGEN 16 mg/dL (7-20); CALCIUM 8.9 mg/dL (8.4-10.2); CARBON DIOXIDE 23 mmol/L (22-30); CHLORIDE 108 mmol/L (98-107); CHOLESTEROL 216.02 mg/dL (0-200); GLUCOSE 103 mg/dL (75-110); POTASSIUM 4.5 mmol/L (3.6-5.0); SODIUM 143.4 mmol/L (137-145); TRIGLYCERIDES 102 mg/dL (<150)
[2017-12-10 06:38] LABS: DIRECT LDL 168 mg/dL (<100)
[2017-12-10] MEDS: SOTALOL HCL 80 MG TABLET PO SCH ×2 (09:37→21:10)
[2017-12-10] MEDS ORDERED: LISINOPRIL 5 MG TABLET PO SCH (10:00)
[2017-12-10] MEDS ORDERED: FAMOTIDINE 20 MG TABLET PO PRN (14:36)
--- NOTE | 2017-12-10 14:44 | PDOC PROGRESS REPORT ---
Subjective Progress Note for:: 12/10/17 Subjective:: The patient's only complaint is reflux. He has a hiatal hernia. He takes omeprazole at home but on an as-needed basis. He was requesting baking soda but I suggested we stick with our formulary medications. Reason For Visit: RAPID ATRIAL FIBRILLATION Physical Exam Vital Signs: Temp Pulse Resp BP Pulse Ox 98.0 F 72 18 144/86 H 95 12/10/17 11:35 12/10/17 11:35 12/10/17 11:35 12/10/17 11:35 12/10/17 11:35 Intake & Output 12/09/17 12/10/17 12/11/17 06:59 06:59 05:59 Intake Total 1152 1926 592 Output Total 350 Balance 802 1926 592 Weight 106.2 kg 90.7 kg General appearance: PRESENT: no acute distress, cooperative, well-developed, well-nourished Head exam: PRESENT: atraumatic, normocephalic Eye exam: PRESENT: conjunctiva pink, EOMI, other - He wears glasses. ABSENT: scleral icterus Ear exam: PRESENT: normal external ear exam Mouth exam: PRESENT: moist, neck supple Neck exam: ABSENT: carotid bruit, JVD, lymphadenopathy Respiratory exam: PRESENT: clear to auscultation florin, symmetrical, unlabored. ABSENT: rales, rhonchi, wheezes Cardiovascular exam: PRESENT: RRR, +S1, +S2 GI/Abdominal exam: PRESENT: normal bowel sounds, soft. ABSENT: distended, guarding, tenderness Extremities exam: PRESENT: full ROM. ABSENT: calf tenderness, pedal edema Musculoskeletal exam: PRESENT: ambulatory Neurological exam: PRESENT: alert, awake, oriented to person, oriented to place , oriented to time, oriented to situation, CN II-XII grossly intact Psychiatric exam: PRESENT: appropriate affect, normal mood. ABSENT: anxious Skin exam: PRESENT: dry, intact, warm. ABSENT: cyanosis, rash Results Laboratory Results: 12/09/17 04:17 12/10/17 05:28 12/10/17 05:28 Sodium 143.4 Potassium 4.5 Chloride 108 H Carbon Dioxide 23 Anion Gap 12 BUN 16 Creatinine 0.83 Est GFR ( Amer) > 60 Est GFR (Non-Af Amer) > 60 Glucose 103 Calcium 8.9 Magnesium 2.1 Triglycerides 102 Cholesterol 216.02 H LDL Cholesterol Direct 168 H VLDL Cholesterol 20.0 HDL Cholesterol 28 L 12/08/17 12/08/17 12/09/17 22:28 22:28 04:17 Troponin I 0.037 0.035 NT-Pro-B Natriuret Pep 299 12/09/17 11:03 Troponin I 0.022 NT-Pro-B Natriuret Pep Impressions: Chest X-Ray 12/08/17 00:00 IMPRESSION: NO ACUTE FINDINGS. Assessment & Plan - Diagnosis (1) Atrial fibrillation with RVR Is this a current diagnosis for this admission?: Yes Plan: The patient was treated with continuous diltiazem infusion as well as a single dose of digoxin. He also received beta-blockade and this seemed to be most effective. Cardiology saw him this morning and initiated therapy with sotalol. Per the executive pilot's recommendation he will need to be observed on telemetry for 48 hours with a new initiation of this medication. He is in fact back in sinus rhythm with good rate control. He feels quite well. 12/10/2017-on the sotalol the patient remains in sinus rhythm. He will be observed 1 more day to complete the 48-hour window recommended by the executive pilot. He will likely discharge late tomorrow afternoon. He will continue his sotalol in place of his metoprolol. (2) Leg cramps Is this a current diagnosis for this admission?: Yes Plan: During this encounter the patient reported chronic and frequent leg cramps. They typically are in the calves and can include musculature above the knee. We discussed potential etiologies. The patient does take potassium but does not feel that it helps consistently. I showed him some leg stretching that can be done in bed. I encouraged him to try this in the morning and at night. I will also check his potassium, magnesium and calcium levels with his morning blood work. 12/10/2017-the patient reports no leg cramps last evening. (3) HLD (hyperlipidemia) Qualifiers: Hyperlipidemia type: mixed hyperlipidemia Qualified Code(s): E78.2 - Mixed hyperlipidemia Is this a current diagnosis for this admission?: Yes Plan: The patient's serum cholesterol and LDL levels were above normal. This clearly makes them above the desired goals for cardiac patients. He will be restarted on his atorvastatin 40 mg daily. (5) Hiatal hernia with gastroesophageal reflux Is this a current diagnosis for this admission?: Yes Plan: Patient was complaining of reflux last night. He has a history of hiatal hernia. He states that he is only symptomatic with larger meals. Normally he would use omeprazole or baking soda at home. We will try famotidine twice daily as needed. If this is ineffective we will advanced to Prevacid. - Time Time Spent with patient: 15-24 minutes Medications reviewed and adjusted accordingly: Yes
--- NOTE | 2017-12-10 15:06 | Progress Note ---
Provider Note Provider Note: CARDIOLOGY PROGRESS NOTES for 12/10/2017. SUBJECTIVE: The patient remains in sinus rhythm. His QTC is within normal/ reasonable limits on sotalol. There is no pro arrhythmia on sotalol. The patient has no chest pain or discomfort. There is no PND or orthopnea. There is no leg edema there is no palpitations. There is no TIA or CVA symptoms. There is no cough or sputum production or wheezing. Selected Entries 12/10/17 11:35 Temperature 98.0 F Temperature Oral Source Pulse Rate 72 Respiratory 18 Rate Blood Pressure 144/86 H BP Location Left Arm BP Position Supine O2 Sat by Pulse 95 Oximetry Oxygen Delivery Room Air Method HEAD: Head is atraumatic normocephalic. EYES: Pupils are equal round regular reactive to light accommodation. Extraocular movements are normal. There is no clinical pallor. There is no scleral icterus. EARS: External auditory canals are clear. There is no inflammation of the tympanic membrane there is no lesions on the pennae. NOSE: No deviated nasal septum. No inflammation of the nasal mucous membrane. MOUTH: Mucous members of mouth are moist tongue is moist there is no ulcers there is no bleeding from the gums. THROAT: There is no redness of the oropharynx. There is no exudates in the throat. SKIN: There is no petechia or ecchymosis. There is no skin rashes or skin lesions. NECK: Neck is supple there is no JVD carotids are equal there is no bruit. There is no lymphadenopathy there is no goiter. There is no accessory muscles of respiration in use. Trachea central. LUNGS: Clear to auscultation percussion, without any rhonchi rales or wheezing. There is no chest wall tenderness. HEART: S1-S2 is heard. S1 is of normal intensity. There is no S3 gallop. There is no S4 gallop. There is systolic murmur left sternal border and the apex without radiation. There is no rub. ABDOMEN: Is soft nontender. There is no hepatosplenomegaly, and bowel sounds well heard. There is no rebound guarding or rigidity. There is no masses. EXTREMITIES: Femorals are well felt. There is no femoral bruits. Leg pulses are well felt. There is no pedal edema. There is no DVT or cellulitis. There is no calf tenderness. There is no sinus or clubbing. Capillary refill is normal. 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 PSYCHIATRIC: The patient judgment and insight are intact his affect is normal.. 12/10/17 05:28 Sodium 143.4 Potassium 4.5 Chloride 108 H Carbon Dioxide 23 Anion Gap 12 BUN 16 Creatinine 0.83 Est GFR (Non-Af Amer) > 60 Glucose 103 Calcium 8.9 Magnesium 2.1 Triglycerides 102 Cholesterol 216.02 H LDL Cholesterol Direct 168 H VLDL Cholesterol 20.0 HDL Cholesterol 28 L IMPRESSION/RECOMMENDATION: 1. Paroxysmal atrial fibrillation. At present patient sinus rhythm. Continue the patient on sotalol. So far the QTC is normal at 443, and no pleural arrhythmias seen 2. Hypertension well controlled. Continue current antihypertensives. Will increase the patient's lisinopril to 10 mg p.o. twice daily. [The patient was on 20 mg of lisinopril by mouth daily at home.]. 3. Note that the patient has contraindication for anticoagulation. Hence will try to keep the patient in sinus rhythm on sotalol. Sotalol has been chosen since this is cheaper and has lesser side effects than amiodarone. 4. Hyperlipidemia. In spite of the patient being on Lipitor 40 mg at bedtime, is HDL level is low and is LDL level is very high. Would recommend dietary consultation to educate the patient on a low-cholesterol low-fat diet. His medications have been reviewed. Medical decision making is of moderate complexity. Discussed with attending physician on the case. Discussed with the patient and patient's . 40 minutes spent on this patient more than 50% of time spent in direct patient care. We will follow with you.
[2017-12-10] MEDS: LISINOPRIL 10 MG TABLET PO SCH (21:10)
[2017-12-10] MEDS ORDERED: ATORVASTATIN CALCIUM 40 MG TABLET PO SCH (22:00)
--- NOTE | 2017-12-10 22:03 | EKG REPORT ---
SEVERITY:- ABNORMAL ECG - SINUS RHYTHM NONSPECIFIC INTRAVENTRICULAR CONDUCTION DELAY : Confirmed by: Janelle Bell MD 10-Dec-2017 22:02:33
[2017-12-11] MEDS: HEPARIN SOD (PORCINE) 5,000 UNIT/ML 1 ML SYRINGE SUBCUT SCH ×2 (05:42→14:26)
[2017-12-11] MEDS: LISINOPRIL 10 MG TABLET PO SCH (09:05)
[2017-12-11] MEDS: SOTALOL HCL 80 MG TABLET PO SCH (09:06)
--- NOTE | 2017-12-11 09:39 | EKG REPORT ---
SEVERITY:- NORMAL ECG - SINUS RHYTHM : Confirmed by: Janelle Bell MD 11-Dec-2017 09:38:58
[2017-12-11 15:49] VITALS: BP 108/61
--- NOTE | 2017-12-11 15:53 | PDOC DISCHARGE SUMMARY ---
General - Admit/Disc Date/PCP Admission Date/Primary Care Provider: 12/08/17 21:21 TIAGO LUNA NP Discharge Date: 12/11/17 - Discharge Diagnosis (1) Atrial fibrillation with RVR Is this a current diagnosis for this admission?: Yes Summary: Patient was admitted with atrial fibrillation with rapid ventricular response. He did not respond to continuous diltiazem or intravenous digoxin. He did respond to beta blockade. He was on metoprolol prior to his admission. Cardiology has changed him to sotalol. He will continue on sotalol and follow- up with cardiology. (2) Leg cramps Is this a current diagnosis for this admission?: Yes Summary: The patient describes leg cramps that are intermittent for him. We had discussed her lites and the importance of staying hydrated. I also showed him several stretching exercises that he should perform in the morning and before he goes to bed. He did not have any recurrence of cramps in the hospital. (3) HLD (hyperlipidemia) Is this a current diagnosis for this admission?: Yes Summary: He will continue to follow his cardiac diet and continue his atorvastatin 40 mg daily (4) Hiatal hernia with gastroesophageal reflux Is this a current diagnosis for this admission?: Yes Summary: The patient takes omeprazole 20 mg on an as-needed basis at home. He will return to his previous regimen. - Additional Information Resuscitation Status: Full Code Discharge Diet: Cardiac Discharge Activity: Balance Activity w/Rest, No Lifting Over 10 Pounds, Slowly Increase Activity Prescriptions: Sotalol HCl [Betapace 80 mg Tablet] 40 mg PO Q12 #30 tablet Home Medications: Lisinopril 20 mg PO DAILY 06/27/16 Atorvastatin Calcium [Lipitor 40 mg Tablet] 40 mg PO QHS 12/08/17 Atorvastatin Calcium [Lipitor 40 mg Tablet] 40 mg PO QHS tablet 12/11/17 Sotalol HCl [Betapace 80 mg Tablet] 40 mg PO Q12 #30 tablet 12/11/17 Temazepam [Restoril 7.5 mg Capsule] 7.5 mg PO HSP PRN capsule 12/11/17 History of Present Illness Patient complains of: Rapid heart rate History of Present Illness: JOVAN GRIDER SR is a 62 year old male who has a history of atrial fibrillation previously controlled on metoprolol. He presented with palpitations and rapid heart rate. Hospital Course Hospital Course: The patient was given intravenous diltiazem in the emergency department. He was then started on a continuous diltiazem infusion. This was not able to control his rate. He was given a dose of intravenous digoxin which was not effective. Finally he received intravenous beta blockade. This was effective. Cardiology saw the patient and placed him on sotalol. Per the auto hiker's recommendation the patient needed to remain on sotalol while observed as an inpatient for 48 hours. The patient exhibited no adverse effects and on sotalol he remained in sinus rhythm. Will be discharged on the sotalol and follow-up with cardiology. Physical Exam Vital Signs: Temp Pulse Resp BP Pulse Ox 97.8 F 68 16 142/84 H 94 12/11/17 13:11 12/11/17 14:00 12/11/17 13:11 12/11/17 13:11 12/11/17 13:11 Intake & Output 12/10/17 12/11/17 12/12/17 07:59 06:59 06:59 Intake Total Balance Weight General appearance: PRESENT: no acute distress, cooperative, well-nourished Head exam: PRESENT: atraumatic, normocephalic Eye exam: PRESENT: conjunctiva pink, EOMI. ABSENT: scleral icterus Ear exam: PRESENT: normal external ear exam Mouth exam: PRESENT: moist, neck supple Neck exam: PRESENT: full ROM. ABSENT: carotid bruit, JVD, lymphadenopathy Respiratory exam: PRESENT: clear to auscultation florin, symmetrical, unlabored. ABSENT: rales, rhonchi, wheezes Cardiovascular exam: PRESENT: RRR, +S1, +S2 Pulses: PRESENT: normal radial pulses, normal dorsalis pedis pul GI/Abdominal exam: PRESENT: normal bowel sounds, soft. ABSENT: distended, tenderness Extremities exam: ABSENT: calf tenderness, pedal edema Musculoskeletal exam: PRESENT: ambulatory Neurological exam: PRESENT: alert, awake, oriented to person, oriented to place , oriented to time, oriented to situation, CN II-XII grossly intact Psychiatric exam: PRESENT: appropriate affect, normal mood. ABSENT: agitated Skin exam: PRESENT: dry, intact, warm. ABSENT: cyanosis, rash Results Laboratory Results: 12/09/17 04:17 12/10/17 05:28 12/08/17 12/08/17 12/09/17 22:28 22:28 04:17 Troponin I 0.037 0.035 NT-Pro-B Natriuret Pep 299 12/09/17 11:03 Troponin I 0.022 NT-Pro-B Natriuret Pep Impressions: Chest X-Ray 12/08/17 00:00 IMPRESSION: NO ACUTE FINDINGS. Qualifiers - * PATIENT BEING DISCHARGED WITH ANY OF THE FOLLOWING DIAGNOSIS: No Plan Discharge Plan: As above. Follow-up with cardiology and primary care. Activity limits as above. Time Spent: Greater than 30 Minutes
--- NOTE | 2017-12-11 20:18 | Progress Note ---
Provider Note Provider Note: CARDIOLOGY PROGRESS NOTE by Dr. Janelle Bell on 12/11/2017. SUBJECTIVE: The patient remains in sinus rhythm. There is no palpitations. There is no chest pain or discomfort. There is no PND orthopnea. There is no pedal edema. There is no pro arrhythmia on sotalol. There is no TIA CVA symptoms. Apart from the past history of peptic ulcer disease and GI bleed from that, the patient also claims to have significant symptoms of GERD. Hence he cannot even take a baby aspirin. There is no ventricular arrhythmias on the monitor. There is no TIA CVA symptoms. SUBJECTIVE: The patient is well-built and well-nourished. He is in no acute distress. He is well-groomed. Selected Entries 12/11/17 13:11 Temperature 97.8 F Temperature Oral Source Pulse Rate 62 Respiratory 16 Rate Blood Pressure 142/84 H Blood Pressure 103 Mean O2 Sat by Pulse 94 Oximetry Oxygen Delivery Room Air Method HEAD: Head is atraumatic normocephalic. EYES: Pupils are equal round regular reactive to light accommodation. Extraocular movements are normal. There is no clinical pallor. There is no scleral icterus. EARS: External auditory canals are clear. There is no inflammation of the tympanic membrane there is no lesions on the pennae. NOSE: No deviated nasal septum. No inflammation of the nasal mucous membrane. MOUTH: Mucous members of mouth are moist tongue is moist there is no ulcers there is no bleeding from the gums. THROAT: There is no redness of the oropharynx. There is no exudates in the throat. SKIN: There is no petechia or ecchymosis. There is no skin rashes or skin lesions. NECK: Neck is supple there is no JVD carotids are equal there is no bruit. There is no lymphadenopathy there is no goiter. There is no accessory muscles of respiration in use. Trachea central. LUNGS: Clear to auscultation percussion, without any rhonchi rales or wheezing. There is no chest wall tenderness. HEART: S1-S2 is heard. S1 is of normal intensity. There is no S3 gallop. There is no S4 gallop. There is systolic murmur left sternal border and the apex without radiation. There is no rub. ABDOMEN: Is soft nontender. There is no hepatosplenomegaly, and bowel sounds well heard. There is no rebound guarding or rigidity. There is no masses. EXTREMITIES: Femorals are well felt. There is no femoral bruits. Leg pulses are well felt. There is no pedal edema. There is no DVT or cellulitis. There is no calf tenderness. There is no sinus or clubbing. Capillary refill is normal. 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 PSYCHIATRIC: The patient judgment and insight are intact his affect is normal.. EKG: Sinus Rhythm. Within normal limits. The QTc is normal at 456. IMPRESSION/RECOMMENDATION: 1. Paroxysmal atrial fibrillation. At present patient sinus rhythm. Continue the patient on sotalol. So far the QTC is normal at 443, and no pleural arrhythmias seen 2. Hypertension well controlled. Continue current antihypertensives. Will increase the patient's lisinopril to 10 mg p.o. twice daily. [The patient was on 20 mg of lisinopril by mouth daily at home.]. 3. Note that the patient has contraindication for anticoagulation. Hence will try to keep the patient in sinus rhythm on sotalol. Sotalol has been chosen since this is cheaper and has lesser side effects than amiodarone. 4. Hyperlipidemia. In spite of the patient being on Lipitor 40 mg at bedtime, is HDL level is low and is LDL level is very high. Would recommend dietary consultation to educate the patient on a low-cholesterol low-fat diet. 5. Significant symptoms of GERD. Hence will not insist on the patient being on aspirin. As mentioned earlier he is not a candidate for chronic anticoagulation. Medications reviewed. Discussed the management plan with attending physician. Discussed the plan with the patient. We will follow the patient as an outpatient, and scheduled IV Lexiscan Cardiolite stress test in my office. Medical decision making now is of moderate complexity. 40 minutes spent on this patient with more than 50% time spent in direct patient care. Will sign off the case. Thanking you.
== END 2017-12-11 16:04 | disposition home or self-care (01) | DRG 309 ==
LOC: ER 17:37 → EH 21:21 → 3S 22:55
PROVIDERS: ADMIT Internal Medicine; ATTEND Internal Medicine
DX: I48.0 Paroxysmal atrial fibrillation (principal); N17.9 Acute kidney failure, unspecified; E78.5 Hyperlipidemia, unspecified; I10 Essential (primary) hypertension; M19.90 Unspecified osteoarthritis, unspecified site; F32.9 Major depressive disorder, single episode, unspecified; J44.9 Chronic obstructive pulmonary disease, unspecified; K44.9 Diaphragmatic hernia without obstruction or gangrene; K21.9 Gastro-esophageal reflux disease without esophagitis; R25.2 Cramp and spasm; Z87.11 Personal history of peptic ulcer disease; Z87.891 Personal history of nicotine dependence; Z88.8 Allergy status to other drugs, medicaments and biological substances; Z86.718 Personal history of other venous thrombosis and embolism; Z91.018 Allergy to other foods; Z86.19 Personal history of other infectious and parasitic diseases
CPT/HCPCS: 36415; 71045; 80048; 80053; 80061; 81001; 83735; 83880; 84443; 84484; 85025; 85027; 85610; 85730; 93005; 93010; 93306; 96374; 96376; 99291; J1160; J1644; J3490; J7030

== ENCOUNTER 2019-01-05 20:36 | Observation (INO) | payer MEDICAID ==
[2019-01-05] MEDS ORDERED: DILTIAZEM HCL/D5W 125 MG/125 ML RTUINJ IV PRN ×2 (21:25→23:38)
[2019-01-05] MEDS ORDERED: DILTIAZEM HCL INJ 25 MG/5 ML VIAL IV ONE (21:25)
[2019-01-05] MEDS ORDERED: NORMAL SALINE 1000 ML 1,000 ML IV ONE (21:26)
[2019-01-05 21:29] LABS: ABSOLUTE BASOPHILS # (AUTO) 0.1 10^3/uL (0.0-0.2); ABSOLUTE EOSINOPHILS # (AUTO) 0.3 10^3/uL (0.0-0.6); ABSOLUTE LYMPHOCYTES (AUTO) 1.8 10^3/uL (0.5-4.7); ABSOLUTE NEUT (AUTO) 3.1 10^3/uL (1.7-8.2); EOSINOPHILS % (AUTO) 5.1 % (0-6); HEMATOCRIT 48.3 % (37.9-51.0); HEMOGLOBIN 16.4 g/dL (13.5-17.0); LYMPHOCYTES % (AUTO) 28.9 % (13-45); MEAN CORPUSCULAR HEMOGLOBIN 31.6 pg (27.0-33.4); MEAN CORPUSCULAR VOLUME 93 fl (80-97); MONOCYTES % (AUTO) 15.9 % (3-13); PLATELET COUNT 217 10^3/uL (150-450); RED BLOOD COUNT 5.19 10^6/uL (4.35-5.55); RED CELL DISTRIBUTION WIDTH 13.5 % (11.5-14.0); SEGMENTED NEUTROPHILS % (AUTO) 49.1 % (42-78); TOTAL CELLS COUNTED % (AUTO) 100 %; WHITE BLOOD COUNT 6.4 10^3/uL (4.0-10.5)
[2019-01-05 21:31] LABS: INTERNATIONAL RATION (INR) 1.06; PROTHROMBIN TIME 13.8 SEC (11.4-15.4)
--- NOTE | 2019-01-05 21:31 | ER Document Report ---
ED General - General Chief Complaint: Irregular Pulse Stated Complaint: HEART PALPITATIONS Time Seen by Provider: 01/05/19 21:21 Primary Care Provider: TIAGO LUNA NP [Primary Care Provider] - Follow up as needed TRAVEL OUTSIDE OF THE [place] IN LAST 30 DAYS: No - HPI Notes: Patient is a 63-year-old gentleman with a history of atrial fibrillation who presents emergency department for evaluation of palpitations. He states he was sitting at home at about 7 PM, starting to worsen television, when he developed chest pain, shortness of breath, and palpitations. He has a history of atrial fibrillation, states this is happened about 7 or 8 times in the past. He does admit that some stress, and argument with his son, brought about the symptoms. He states he "waited it out" at home for some time, and his chest pain and shortness of breath resolved, but the palpitations continued, so he presents to the emergency department for further evaluation. On further questioning the patient states he is unsure as to whether or not he took his medications right. He is concerned he might have missed his sotalol. - Related Data Allergies/Adverse Reactions: pineapple [Pineapple] Allergy (Verified 01/05/19 21:17) warfarin sodium [From Coumadin] Adverse Reaction (Verified 01/05/19 21:17) Home Medications: Sotalol, lisinopril Past Medical History - General Information source: Patient - Social History Smoking Status: Former Smoker Family History: Reviewed & Not Pertinent, Other - Review of the history suggests there may be a family history of clotting disorders Patient has suicidal ideation: No Patient has homicidal ideation: No - Past Medical History Cardiac Medical History: Reports: Hx Atrial Fibrillation - Not currently anticoagulated, Hx DVT - Possible history of same, Hx Hypercholesterolemia, Hx Hypertension Denies: Hx Congestive Heart Failure, Hx Heart Attack, Hx Pulmonary Embolism Pulmonary Medical History: Reports: Hx COPD Denies: Hx Asthma, Hx Sleep Apnea Neurological Medical History: Denies: Hx Seizures Endocrine Medical History: Denies: Hx Diabetes Mellitus Type 1, Hx Diabetes Nahed itus Type 2, Hx Hyperthyroidism, Hx Hypothyroidism Renal/ Medical History: Denies: Hx Peritoneal Dialysis GI Medical History: Reports: Hx Hepatitis - Hepatitis A. Denies: Hx Cirrhosis Musculoskeletal Medical History: Reports Hx Arthritis Psychiatric Medical History: Reports: Hx Depression - Mild Infectious Medical History: Reports: Hx Hepatitis - Hepatitis A. Denies: Hx C- Diff, Hx MRSA Past Surgical History: Reports: Hx Orthopedic Surgery - Bilateral hips, knees, ankles, and elbow, Hx Tonsillectomy - Immunizations Hx Diphtheria, Pertussis, Tetanus Vaccination: Yes Review of Systems - Review of Systems Constitutional: No symptoms reported EENT: No symptoms reported Cardiovascular: See HPI Respiratory: See HPI Gastrointestinal: See HPI Genitourinary: No symptoms reported Musculoskeletal: No symptoms reported Skin: No symptoms reported Neurological/Psychological: No symptoms reported Physical Exam - Vital signs Vitals: Temp Pulse Resp BP 98.4 F 144 H 20 111/69 01/05/19 20:37 01/05/19 20:37 01/05/19 20:37 01/05/19 20:37 - Notes Notes: Vital signs reviewed, please refer to chart. Head is normocephalic, atraumatic. Pupils equal round, reactive to light. Neck is supple without meningismus. Heart is tachycardic, irregularly irregular. Lungs are clear to auscultation bilaterally. Abdomen is soft, nontender, normoactive bowel sounds throughout. Extremities without cyanosis, clubbing. Posterior calves are nontender. Peripheral pulses are equal. Skin is warm and dry. Patient is awake, alert, neurological exam is nonfocal. Course - Re-evaluation Re-evalutation: 01/05/19 21:29 Patient presents emergency department for evaluation. On arrival he is found to be in rapid atrial fibrillation. He is placed on a monitor. His blood pressures are borderline but he remained stable, chest pain-free. I did load him with Cardizem 20 mill grams IV, will start him on drip. We will continue to monitor. 01/05/19 22:54 Patient's blood pressure is slightly soft, currently 108/78, but his heart rate is much better controlled on Cardizem. Patient remained stable, chest pain- free. I spoke with Dr. Bell who will see the patient in consult, agrees with management. Dr. Jeff will admit the patient for further care. - Vital Signs Vital signs: Temp Pulse Resp BP Pulse Ox 98.4 F 144 H 23 H 96/75 L 97 01/05/19 20:37 01/05/19 20:37 01/05/19 22:26 01/05/19 22:26 01/05/19 22:26 - Laboratory Result Diagrams: 01/05/19 21:09 01/05/19 21:09 Laboratory results interpreted by me: 01/05/19 01/05/19 21:09 21:09 [place] % (Auto) 15.9 H Chloride 108 H Glucose 116 H Creatine Kinase 222 H - Diagnostic Test Radiology reviewed: Reports reviewed - EKG Interpretation by Me Additional EKG results interpreted by me: 01/05/19 21:30 Atrial fibrillation with a rate of 154 bpm. Normal axis. Prolonged QT interval. Lateral ST depression concerning for ischemia, likely rate related. No acute ST elevation concerning for infarction. Discharge - Discharge Clinical Impression: Atrial fibrillation with RVR Condition: Stable Disposition: ADMITTED INPATIENT Admitting Provider: Tomer (Hospitalist) Unit Admitted: IMCU Referrals: TIAGO LUNA NP [Primary Care Provider] - Follow up as needed
[2019-01-05 21:41] LABS: ALBUMIN 4.5 g/dL (3.5-5.0); ALKALINE PHOSPHATASE 78 U/L (38-126); ANION GAP 12 (5-19); ASPARTATE AMINO TRANSFERASE 32 U/L (17-59); BILIRUBIN,DIRECT 0.1 mg/dL (0.0-0.4); BILIRUBIN,TOTAL 0.7 mg/dL (0.2-1.3); BLOOD UREA NITROGEN 20 mg/dL (7-20); CALCIUM 9.6 mg/dL (8.4-10.2); CARBON DIOXIDE 25 mmol/L (22-30); CHLORIDE 108 mmol/L (98-107); CREATINE KINASE 222 U/L (55-170); GLUCOSE 116 mg/dL (75-110); POTASSIUM 4.1 mmol/L (3.6-5.0); TOTAL PROTEIN 8.1 g/dL (6.3-8.2)
[2019-01-05 21:52] LABS: CREATINE KINASE MB 2.75 ng/mL (<4.55)
[2019-01-05 21:53] LABS: TROPONIN I < 0.012 ng/mL
--- NOTE | 2019-01-05 21:54 | RADIOLOGY REPORT (SQ) ---
EXAM DESCRIPTION: XR CHEST 1 VIEW COMPLETED DATE/TME: 01/05/2019 20:55 CLINICAL HISTORY: 63 years Male SOB COMPARISON: CT 02/18/2014 Chest x-ray 07/01/2016. FINDINGS: Cardiac size appears within normal limits. Right lung is clear. Retrocardiac density on the left. This appears to represent a hiatal hernia which was present on CT examination from 2014. Small amount of adjacent atelectasis is noted. No acute consolidation. IMPRESSION: No acute abnormality is identified. Hiatal hernia
[2019-01-05] MEDS ORDERED: MAG HYDROX/AL HYDROX/SIMETH SUSP 30 ML UDCUP PO PRN (23:33)
[2019-01-05] MEDS ORDERED: ONDANSETRON 4 MG TAB.RAPDIS PO PRN (23:33)
[2019-01-05] MEDS ORDERED: MAGNESIUM HYDROXIDE SUSP 30 ML UDCUP PO PRN (23:33)
[2019-01-05] MEDS ORDERED: ACETAMINOPHEN 325 MG TABLET PO PRN (23:38)
[2019-01-05] MEDS ORDERED: MORPHINE SULFATE 10 MG/ML INJ IV PRN ×3 (23:38)
[2019-01-05] MEDS: FAMOTIDINE 20 MG TABLET PO SCH (23:56)
[2019-01-06 00:15] LABS: CREATINE KINASE MB 2.36 ng/mL (<4.55); TROPONIN I 0.019 ng/mL
--- NOTE | 2019-01-06 04:35 | PDOC H&P ---
History of Present Illness Admission Date/PCP: 01/05/19 23:07 TIAGO LUNA NP Patient complains of: Palpitations History of Present Illness: JOVAN MTZ JR is a 63 year old male who presented to the emergency room with acute palpitations. He admits that he may have forgotten to take his sotalol earlier in the day and then suddenly while sitting in his chair at home watching television he developed rapid palpitations accompanied by transient substernal chest pain and dyspnea. He admits to chronic atrial fibrillation and is treated with sotalol with excellent control however he has experienced several similar episodes when he has missed doses of sotalol. He denies other associated or accompanying signs and symptoms. He has not identified any additional aggravating or ameliorating factors for his palpitations. In the emergency room the patient was found to be in atrial fibrillation with a rapid ventricular response in the 150s and was treated with IV Cardizem and a bolus followed by a continuous infusion. His heart rate has been well controlled and Dr. Bell his regular radiology tech was consulted. Dr. Bell recommended admission by the hospitalist service. Patient was subsequently admitted to the hospital service for further evaluation treatment with Dr. Bell consulting. Past Medical History Cardiac Medical History: Reports: Atrial Fibrillation - Not currently anticoagulated due to GI bleeding risk, DVT, Hyperlipidema, Hypertension Denies: Congestive Heart Failure, Coronary Artery Disease, Myocardial In farction, Peripheral Vascular Disease, Pulmonary Embolism Pulmonary Medical History: Reports: Chronic Obstructive Pulmonary Disease (COPD) Denies: Asthma, Sleep Apnea EENT Medical History: Denies: Cataracts, Ears - Hearing aids Neurological Medical History: Denies: Hemorrhagic CVA, Ischemic CVA, Seizures Endocrine Medical History: Denies: Diabetes Mellitus Type 1, Diabetes Mellitus Type 2, Hyperthyroidism, Hypothyroidism Malignancy Medical History: Reports: None GI Medical History: Reports: Gastroesophageal Reflux Disease, Hepatitis - He patitis A, Hiatal Hernia, Other - GI bleeding associated with anticoagulants in the past Denies: Cirrhosis, Crohn's Disease, Ulcerative Colitis Musculoskeltal Medical History: Reports: Arthritis Denies: Gout Skin Medical History: Denies: Eczema, Psoriasis Psychiatric Medical History: Reports: Depression - Mild Denies: Alcohol Dependency, Substance Abuse, Tobacco Dependency Traumatic Medical History: Reports: None Hematology: Denies: Anemia, Bleeding Tendencies Infectious Medical History: Reports: None Past Surgical History Past Surgical History: Reports: Orthopedic Surgery - Bilateral hips, knees, ankles, and elbow, Tonsillectomy Social History Information Source: Patient Lives with: Spouse/Significant other Smoking Status: Former Smoker Electronic Cigarette use?: No Frequency of Alcohol Use: None Hx Recreational Drug Use: No Drugs: None Hx Prescription Drug Abuse: No - Advance Directive Resuscitation Status: Full Code Surrogate healthcare decision maker:: Raúl Mtz Family History Family History: Malignancy, Other - Blood clotting disorders (DVTs and pulmonary emboli). denies: CAD, DM, Hypertension Parental Family History Reviewed: Yes Children Family History Reviewed: No Sibling(s) Family History Reviewed.: Yes Medication/Allergy Home Medications: Lisinopril 20 mg PO DAILY 06/27/16 Atorvastatin Calcium [Lipitor 40 mg Tablet] 40 mg PO QHS 12/08/17 Atorvastatin Calcium [Lipitor 40 mg Tablet] 40 mg PO QHS tablet 12/11/17 Sotalol HCl [Betapace 80 mg Tablet] 40 mg PO Q12 #30 tablet 12/11/17 Temazepam [Restoril 7.5 mg Capsule] 7.5 mg PO HSP PRN capsule 12/11/17 Doxycycline Hyclate 100 mg PO BID #14 capsule 06/02/18 Allergies/Adverse Reactions: pineapple [Pineapple] Allergy (Verified 01/05/19 21:17) warfarin sodium [From Coumadin] Adverse Reaction (Verified 01/05/19 21:17) Review of Systems Constitutional: ABSENT: chills, fever(s) Eyes: ABSENT: visual disturbances, other - Eye pain Ears: ABSENT: hearing changes, other - Ear pain Nose, Mouth, and Throat: ABSENT: headache(s), mouth pain, sore throat Cardiovascular: PRESENT: as per HPI, chest pain, palpitations Respiratory: PRESENT: as per HPI, dyspnea. ABSENT: cough Gastrointestinal: ABSENT: abdominal pain, constipation, diarrhea, nausea, vomiti ng Genitourinary: ABSENT: dysuria, hematuria Musculoskeletal: ABSENT: back pain, joint swelling, muscle weakness Integumentary: ABSENT: pruritus, rash Neurological: ABSENT: confusion, convulsions, focal weakness, memory loss, syncope Psychiatric: ABSENT: anxiety, depression Endocrine: ABSENT: cold intolerance, heat intolerance Hematologic/Lymphatic: ABSENT: easy bleeding, easy bruising Allergic/Immunologic: ABSENT: seasonal rhinorrhea Physical Exam Vital Signs: Temp Pulse Resp BP Pulse Ox 98.4 F 144 H 16 94/76 L 96 01/05/19 20:37 01/05/19 20:37 01/05/19 23:31 01/05/19 23:31 01/05/19 23:31 Intake & Output 01/03/19 01/04/19 01/05/19 23:59 23:59 23:59 Intake Total 1001 Balance 1001 Weight 101.151 kg General appearance: PRESENT: no acute distress, cooperative Head exam: PRESENT: atraumatic, normocephalic Eye exam: PRESENT: conjunctiva pink. ABSENT: conjunctival injection, scleral icterus Ear exam: PRESENT: normal external ear exam. ABSENT: bleeding, drainage Mouth exam: PRESENT: dry mucosa, neck supple Neck exam: ABSENT: thyromegaly, tracheal deviation Respiratory exam: PRESENT: clear to auscultation florin, symmetrical, unlabored Cardiovascular exam: PRESENT: irregular rhythm - Irregularly irregular rate and rhythm. ABSENT: clicks, gallop, rubs Pulses: PRESENT: normal radial pulses, normal dorsalis pedis pul Vascular exam: PRESENT: normal capillary refill. ABSENT: pallor GI/Abdominal exam: PRESENT: normal bowel sounds, soft Rectal exam: PRESENT: deferred Extremities exam: ABSENT: joint swelling, pedal edema Musculoskeletal exam: ABSENT: deformity, dislocation Neurological exam: PRESENT: alert, oriented to person, oriented to place, oriented to time, oriented to situation, CN II-XII grossly intact. ABSENT: motor sensory deficit Psychiatric exam: PRESENT: appropriate affect, normal mood Skin exam: PRESENT: dry, intact, warm. ABSENT: jaundice, rash, urticaria Results Laboratory Results: 01/05/19 21:09 01/05/19 21:09 01/05/19 01/05/19 21:09 21:09 WBC 6.4 RBC 5.19 Hgb 16.4 Hct 48.3 MCV 93 MCH 31.6 MCHC 34.0 RDW 13.5 Plt Count 217 Seg Neutrophils % 49.1 Sodium 144.9 Potassium 4.1 Chloride 108 H Carbon Dioxide 25 Anion Gap 12 BUN 20 Creatinine 1.01 Est GFR ( Amer) > 60 Glucose 116 H Calcium 9.6 Total Bilirubin 0.7 AST 32 Alkaline Phosphatase 78 Total Protein 8.1 Albumin 4.5 01/05/19 01/05/19 21:09 21:09 Creatine Kinase 222 H CK-MB (CK-2) 2.75 Troponin I < 0.012 Impressions: Chest X-Ray 01/05/19 20:55 IMPRESSION: No acute abnormality is identified. Hiatal hernia Assessment and Plan - Diagnosis (1) Atrial fibrillation with RVR Is this a current diagnosis for this admission?: Yes (2) Atrial fibrillation Qualifiers: Atrial fibrillation type: unspecified chronic Qualified Code(s): I48.20 - Chronic atrial fibrillation, unspecified; I48.2 - Chronic atrial fibrillation Is this a current diagnosis for this admission?: Yes (3) Hiatal hernia with gastroesophageal reflux Is this a current diagnosis for this admission?: Yes (4) HLD (hyperlipidemia) Qualifiers: Hyperlipidemia type: mixed hyperlipidemia Qualified Code(s): E78.2 - Mixed hyperlipidemia Is this a current diagnosis for this admission?: Yes (5) HTN (hypertension) Qualifiers: Hypertension type: essential hypertension Qualified Code(s): I10 - Essential (primary) hypertension Is this a current diagnosis for this admission?: Yes (6) Chronic obstructive pulmonary disease (COPD) Qualifiers: COPD type: unspecified COPD Qualified Code(s): J44.9 - Chronic obstructive pulmonary disease, unspecified Is this a current diagnosis for this admission?: Yes - Plan Summary Summary: Patient will be admitted to telemetry on the [facility]. He will receive routine supportive and symptomatic cares. He will be treated with a diltiazem infusion adjusted to control his atrial fibrillation at a rate less than 120. He will be seen in consultation by Dr. Bell in the morning. He will use morphine sulfate 2 to 4 mg IV every 2 hours on an as-needed basis for control of chest pain. He will be continued on his usual medications for his chronic medical illnesses as soon as his medical reconciliation can be verified. CBC, metabolic profile and magnesium level will be checked in the morning as well his lipid profile and a TSH. - Time Time Spent with patient: 25-34 minutes Medications reviewed and adjusted accordingly: Yes Anticipated discharge: Home - Inpatient Certification Based on my medical assessment, after consideration of the patient's comorbidities, presenting symptoms, or acuity I expect that the services needed warrant INPATIENT care.: Yes I certify that my determination is in accordance with my understanding of Medicare's requirements for reasonable and necessary INPATIENT services [42 CFR 412.3e].: Yes Medical Necessity: Significant Comorbidiites Make Outpatient Treatment Too Risky, Need Close Monitoring Due to Risk of Patient Decompensation, Need For Continuous Telemetry Monitoring, Risk of Complication if Not Cared For in Hospital, Risk of Diagnosis Which Will Require Inpatient Eval/Care/Monitoring
[2019-01-06] MEDS: HEPARIN SOD (PORCINE) 5,000 UNIT/ML 1 ML VIAL SUBCUT SCH ×3 (06:03→21:27)
[2019-01-06 06:53] LABS: HEMATOCRIT 40.8 % (37.9-51.0); MEAN CORPUSCULAR HEMOGLOBIN 31.4 pg (27.0-33.4); MEAN CORPUSCULAR VOLUME 92 fl (80-97); PLATELET COUNT 175 10^3/uL (150-450); RED BLOOD COUNT 4.43 10^6/uL (4.35-5.55); RED CELL DISTRIBUTION WIDTH 13.2 % (11.5-14.0); WHITE BLOOD COUNT 5.5 10^3/uL (4.0-10.5)
[2019-01-06 06:54] LABS: HEMOGLOBIN 13.9 g/dL (13.5-17.0)
[2019-01-06 07:07] LABS: ANION GAP 8 (5-19); BLOOD UREA NITROGEN 18 mg/dL (7-20); CALCIUM 8.9 mg/dL (8.4-10.2); CARBON DIOXIDE 24 mmol/L (22-30); CHLORIDE 111 mmol/L (98-107); CHOLESTEROL 154.83 mg/dL (0-200); CREATINE KINASE 150 U/L (55-170); GLUCOSE 94 mg/dL (75-110); TRIGLYCERIDES 86 mg/dL (<150)
[2019-01-06 07:18] LABS: CREATINE KINASE MB 1.79 ng/mL (<4.55); DIRECT LDL 114 mg/dL (<100)
[2019-01-06 07:23] LABS: TROPONIN I < 0.012 ng/mL
[2019-01-06 07:24] LABS: FREE T3 3.82 pg/mL (2.77-5.27); FREE T4 (FREE THYROXINE) 0.95 ng/dL (0.78-2.19)
--- NOTE | 2019-01-06 10:13 | PDOC PROGRESS REPORT ---
Subjective Progress Note for:: 01/06/19 Reason For Visit: ATRIAL FIBRILLATION WITH RAPID VENTRICULAR 01/06/2019 Patient has a history of this and in fact is seeing cardiology for this problem. Dr. Bell is planning to see the patient again today while in the hospital. Physical Exam Vital Signs: Temp Pulse Resp BP Pulse Ox 98.6 F 90 18 106/64 94 01/06/19 01:30 01/06/19 07:17 01/06/19 01:30 01/06/19 07:17 01/06/19 01:30 Intake & Output 01/05/19 01/06/19 01/07/19 06:59 06:59 06:59 Intake Total 1001 93 Balance 1001 93 Weight 101 kg General appearance: PRESENT: no acute distress, other - Sitting up in bed feels much better. No chest pain no shortness of breath Respiratory exam: PRESENT: clear to auscultation florin. ABSENT: rales, rhonchi, wheezes Cardiovascular exam: PRESENT: RRR. ABSENT: diastolic murmur, rubs, systolic murmur Neurological exam: PRESENT: alert, awake, oriented to person, oriented to place, oriented to time, oriented to situation, CN II-XII grossly intact. ABSENT: motor sensory deficit Psychiatric exam: PRESENT: appropriate affect, normal mood, other - Patient is in good spirits. ABSENT: homicidal ideation, suicidal ideation Results Laboratory Results: 01/06/19 05:43 01/06/19 05:43 01/05/19 01/05/19 01/06/19 21:09 21:09 05:43 WBC 6.4 RBC 5.19 Hgb 16.4 Hct 48.3 MCV 93 MCH 31.6 MCHC 34.0 RDW 13.5 Plt Count 217 Seg Neutrophils % 49.1 Sodium 144.9 142.7 Potassium 4.1 4.0 Chloride 108 H 111 H Carbon Dioxide 25 24 Anion Gap 12 8 BUN 20 18 Creatinine 1.01 0.87 Est GFR ( Amer) > 60 > 60 Glucose 116 H 94 Calcium 9.6 8.9 Magnesium 2.0 Total Bilirubin 0.7 AST 32 Alkaline Phosphatase 78 Total Protein 8.1 Albumin 4.5 Triglycerides 86 Cholesterol 154.83 LDL Cholesterol Direct 114 H VLDL Cholesterol 17.0 HDL Cholesterol 30 L TSH Free T4 Free T3 pg/mL 01/06/19 01/06/19 05:43 05:43 WBC 5.5 RBC 4.43 Hgb 13.9 D Hct 40.8 MCV 92 MCH 31.4 MCHC 34.0 RDW 13.2 Plt Count 175 Seg Neutrophils % Sodium Potassium Chloride Carbon Dioxide Anion Gap BUN Creatinine Est GFR ( Amer) Glucose Calcium Magnesium Total Bilirubin AST Alkaline Phosphatase Total Protein Albumin Triglycerides Cholesterol LDL Cholesterol Direct VLDL Cholesterol HDL Cholesterol TSH 3.00 Free T4 0.95 Free T3 pg/mL 3.82 01/05/19 01/05/19 01/05/19 21:09 21:09 23:40 Creatine Kinase 222 H 174 H CK-MB (CK-2) 2.75 Troponin I < 0.012 01/05/19 01/06/19 01/06/19 23:40 05:43 05:43 Creatine Kinase 150 CK-MB (CK-2) 2.36 1.79 Troponin I 0.019 < 0.012 Impressions: Chest X-Ray 01/05/19 20:55 IMPRESSION: No acute abnormality is identified. Hiatal hernia Assessment and Plan - Diagnosis (1) Atrial fibrillation with RVR Is this a current diagnosis for this admission?: Yes (2) Chronic obstructive pulmonary disease (COPD) Qualifiers: COPD type: unspecified COPD Qualified Code(s): J44.9 - Chronic obstructive pulmonary disease, unspecified Is this a current diagnosis for this admission?: Yes (3) HLD (hyperlipidemia) Qualifiers: Hyperlipidemia type: mixed hyperlipidemia Qualified Code(s): E78.2 - Mixed hyperlipidemia Is this a current diagnosis for this admission?: Yes (4) HTN (hypertension) Qualifiers: Hypertension type: essential hypertension Qualified Code(s): I10 - Essential (primary) hypertension Is this a current diagnosis for this admission?: Yes - Plan Summary Summary: Patient will be admitted to telemetry on the [facility]. He will receive routine supportive and symptomatic cares. He will be treated with a diltiazem infusion adjusted to control his atrial fibrillation at a rate less than 120. He will be seen in consultation by Dr. Bell in the morning. He will use morphine sulfate 2 to 4 mg IV every 2 hours on an as-needed basis for control of chest pain. He will be continued on his usual medications for his chronic medical illnesses as soon as his medical reconciliation can be verified. CBC, metabolic profile and magnesium level will be checked in the morning as well his lipid profile and a TSH. 01/06/2019 Currently no chest pain no shortness of breath Patient's vital signs are stable temperature 97.3. Since 0200 this morning patient's pulse changed from 109 down to 90 and has been stable at 90 ever since. Patient is still on Cardizem drip this is being weaned Patient's blood pressures had been slightly low earlier but have since stabi lized Troponin x3 is negative TSH is normal at 3.0 Cardiology to see today and advise. Patient has been changed to an outpatient status - Time Time Spent with patient: 35 or more minutes
[2019-01-06] MEDS ORDERED: DIGOXIN INJ 0.5 MG/2 ML AMPULE ONE (10:31)
[2019-01-06] MEDS: DOCUSATE SODIUM 100 MG CAPSULE PO SCH ×2 (10:37→17:17)
[2019-01-06] MEDS: FAMOTIDINE 20 MG TABLET PO SCH ×2 (10:37→21:27)
[2019-01-06] MEDS ORDERED: DIGOXIN INJ 0.5 MG/2 ML AMPULE IV ONE (11:30)
[2019-01-06 12:44] LABS: CREATINE KINASE MB 1.42 ng/mL (<4.55)
--- NOTE | 2019-01-06 12:44 | EKG REPORT ---
SEVERITY:- ABNORMAL ECG - A FIB PREMATURE VENTRICULAR COMPLEX : Confirmed by: Stan Masters 06-Jan-2019 12:43:44
--- NOTE | 2019-01-06 12:44 | EKG REPORT ---
SEVERITY:- ABNORMAL ECG - ATRIAL FIBRILLATION ST DEPRESSION, PROBABLY RATE RELATED PROLONGED QT INTERVAL : Confirmed by: Stan Masters 06-Jan-2019 12:43:53
[2019-01-06 12:49] LABS: TROPONIN I < 0.012 ng/mL
[2019-01-06] MEDS ORDERED: SOTALOL HCL 80 MG TABLET PO ONE ×2 (14:30→22:15)
--- NOTE | 2019-01-06 20:56 | PDOC CONSULTATION ---
Consultation-Blank Consultation: CARDIOLOGY CONSULTATION by Dr. Janelle Burgos on 01/06/2019. Patient seen at 3:30 PM. 60 minutes spent on this patient more than 50% of time spent in direct patient care. REASON FOR CONSULTATION: Recurrence of atrial fibrillation the patient with a history of paroxysmal atrial fibrillation kept in sinus rhythm on sotalol. CONSULT REQUESTING PHYSICIAN: Dr. Kevin Carbajal, [facility]. HISTORY PRESENT ILLNESS: The patient is a 63-year-old male with known history of hypertension, hyperlipidemia, and paroxysmal atrial fibrillation kept in sinus rhythm on sotalol, since the patient is contraindication to chronic oral anticoagulation due to prior history of severe GI bleed due to peptic ulcer disease on Coumadin. The patient was last seen here in December 2017 when he came in with recurrence of atrial fibrillation with rapid ventricular response. He converted to sinus rhythm on IV Cardizem and since the patient had contraindication to anticoagulation the patient was placed on sotalol and baby aspirin. Due to lack of insurance he has not followed up with me in the office since then. The patient states that he he had forgotten to take his dose of sotalol and was sitting for a while engaging in a argument with his son. The patient subsequently had rapid palpitations and chest pressure and diaphoresis and shortness of breath. He came to the emergency room and was found to be in atrial fibrillation with rapid ventricular response. He was placed on IV Cardiz em which is now decreased this morning to 5 mg/h. I had given the patient digoxin 0.125 mg IV push x1 and also instructed the nurse to give the patient 80 mg of sotalol orally and discontinued the Cardizem drip. Subsequently the patient converted to sinus bradycardia. At present the patient is asymptomatic. There is no TIA CVA symptoms. There is no chest pain or discomfort at present. There is no PND orthopnea. PAST MEDICAL HISTORY: He has a history of hypertension. He has a history of proximal atrial fibrillation. He is not on anticoagulation due to severe bleeding due to Coumadin in the past. There is no history of coronary artery disease OH or anginal symptoms.. He has no history of congestive heart failure. The patient has no history of asthma or COPD. There is no history of TIA or CVA. There is no history of diabetes mellitus or thyroid disease. He has a past history of hepatitis A from which she has cured. SURGICAL HISTORY: The patient has orthopedic surgery of his hips on both sides, bilateral knees. He has also had tonsillectomy. Atorvastatin Calcium [Lipitor 10 mg Tablet] 10 mg PO QHS 01/06/19 Fluoxetine HCl [Prozac] 10 mg PO DAILY 01/06/19 Lisinopril [Prinivil] 20 mg PO DAILY 01/06/19 Sotalol HCl [Betapace 80 mg Tablet] 40 mg PO DAILY 01/06/19 SOCIAL HISTORY: The patient does not smoke. There is no history of EtOH abuse. There is no history of street drug abuse. ALLERGIES: The patient claims he is allergic to Coumadin, but this is due to the patient's GI bleed. DISPOSITION: The patient is a full code his is a surrogate healthcare decision maker. FAMILY HISTORY: Son history history of clotting disorder, has had pulmonary embolism, and also myocardial infarction due to thrombus. There is also a history of malignancy in the family. Current Medications Generic Name Dose Route Start Last Admin Trade Name Freq PRN Reason Stop Dose Admin Acetaminophen 650 mg 01/05/19 23:38 Tylenol 325 Mg Tablet PO 02/04/19 23:37 Q4HP PRN For headache, pain or fever Al Hydrox/Mg Hydrox/Simethicone 30 ml 01/05/19 23:33 Maalox Plus Susp 30 Udcup PO 02/04/19 23:32 Q6HP PRN HEARTBURN Docusate Sodium 100 mg 01/06/19 10:00 01/06/19 17:17 Colace 100 Mg Capsule PO 02/05/19 09:59 Not Given BID JIN Famotidine 20 mg 01/05/19 23:45 01/06/19 21:27 Pepcid 20 Mg Tablet PO 02/04/19 23:44 20 mg Q12 JIN Administration Heparin Sodium (Porcine) 5,000 unit 01/06/19 06:00 01/06/19 21:27 Heparin Inj 5,000 Units/Ml 1 Ml Vial SUBCUT 02/05/19 05:59 5,000 unit Q8 JIN Administration Magnesium Hydroxide 30 ml 01/05/19 23:33 Milk Of Magnesia 30 Ml Udcup PO 02/04/19 23:32 HSP PRN FOR CONSTIPATION Morphine Sulfate 2 mg 01/05/19 23:38 Morphine 10 Mg/Ml Inj IV 01/12/19 23:37 Q2HP PRN FOR PAIN SCALE 1-2 Morphine Sulfate 3 mg 01/05/19 23:38 Morphine 10 Mg/Ml Inj IV 01/12/19 23:37 Q2HP PRN FOR PAIN SCALE 3-4 Morphine Sulfate 4 mg 01/05/19 23:38 Morphine 10 Mg/Ml Inj IV 01/12/19 23:37 Q2HP PRN PAIN SCALE OF 5 Ondansetron HCl 4 mg 01/05/19 23:33 Zofran Odt 4 Mg Tablet PO 02/04/19 23:32 Q4HP PRN FOR NAUSEA/VOMITING Sodium Chloride 2.5 ml 01/06/19 06:00 01/06/19 21:28 Saline Flush 2.5 Ml Monoject Prefil Syrin IV 02/05/19 05:59 2.5 ml Q8 JIN Administration Discontinued Medications Generic Name Dose Route Start Last Admin Trade Name Freq PRN Reason Stop Dose Admin Digoxin 0.125 mg 01/06/19 11:30 01/06/19 12:23 Lanoxin Inj 0.5 Mg/2 Ml Ampule IV 01/06/19 11:31 Not Given NOW ONE Digoxin Confirm 01/06/19 10:31 01/06/19 10:37 Lanoxin Inj 0.5 Mg/2 Ml Ampule Administered 01/06/19 10:32 0.125 mg Dose Administration 0.5 mg .ROUTE .STK-MED ONE Diltiazem HCl 20 mg 01/05/19 21:25 01/05/19 21:37 Cardizem Inj 25 Mg/5 Ml Vial IV 01/05/19 21:26 20 mg NOW ONE Administration Diltiazem HCl 125 mg in 125 mls @ 0 mls/hr 01/05/19 21:25 01/06/19 15:15 Cardizem Rtu Inj 125 Mg-D5w 125 Ml Premix IV 02/04/19 21:24 Infused CONTINUOUS PRN Titration THIS MED IS NOT "PRN" Protocol Titrate Sodium Chloride 1,000 mls @ 0 mls/hr 01/05/19 21:26 01/05/19 23:51 Nacl 0.9% 1000 Ml Iv Soln IV 01/05/19 21:27 Infused BOLUS ONE Infusion Wide Open Diltiazem HCl 125 mg in 125 mls @ 0 mls/hr 01/05/19 23:38 01/06/19 15:15 Cardizem Rtu Inj 125 Mg-D5w 125 Ml Premix IV 01/06/19 15:30 Infused CONTINUOUS PRN Titration THIS MED IS NOT "PRN" Protocol Titrate Sotalol HCl 80 mg 01/06/19 14:30 01/06/19 14:15 Betapace 80 Mg Tablet PO 01/06/19 14:31 80 mg NOW ONE Administration REVIEW of SYSTEMS: HEAD: Denies headaches or head injury. EYES: No history of amblyopia diplopia. No history of amaurosis fugax. EARS: No history of hearing loss. No history of tinnitus. No vertigo. NOSE: No history of hayfever. No history of nosebleeds. No history of nasal polyposis. MOUTH: No history of altered taste sensation. No ulcers in the mouth. No bleeding from the gums. THROAT: No history of odynophagia or dysphagia. No history of recurrent sore throats. SKIN: No history of pruritus. No history of yellowish discoloration of the skin. No history of psoriasis or skin cancer. NECK: No history of goiter. No history of symptoms of C-spine arthritis. No swelling in the next. LUNGS: No history of asthma COPD. No history of sleep apnea no history of pulmonary embolism. No history of symptoms of upper or lower respiratory tract infection. No cough or sputum production. No wheezing. No hemoptysis. No pleuritic chest pain. CARDIAC: History of hypertension present no history of OH or anginal symptoms. In June 2016 the patient had a negative Cardiolite stress test for ischemia or OH. He has no history of congestive heart failure. History of proximal atrial fibrillation. The patient used to be on Coumadin, which is stopped due to significant bleeding from a peptic ulcer. The patient will not go on anticoagulation. The patient's corrected Delano vas 2 score is 1. The patient cannot tolerate oral aspirin. There is no history of PND orthopnea. The patient had near syncope but no syncope. There is no history of leg edema. No history of congestive heart failure. No history of sudden . GI: History of hepatitis A cured. No history of fatty food intolerance. No altered bowel movements. History of past GI bleed due to peptic ulcer disease, with no recurrence. Occasional symptoms of GERD. No history of altered bowel movements. No history of jaundice. No recurrence of GI bleed. MUSCULOSKELETAL: Denies arthritis or collagen vascular disease. ENDOCRINE: No history of diabetes mellitus or thyroid disease. No history of polydipsia polyuria no history of heat or cold intolerance. METABOLIC: No history of obesity. No history of gout. He is on Lipitor for a history of hyperlipidemia. RENAL: No history of symptoms of enlarged prostate. No history of chronic kidney disease. No symptoms or UTI. No history of recurrent UTIs. No history of hematuria pyuria or dysuria. PEN RIDER: No history of TIA or CVA. No history of headaches migraines or seizures. No gait imbalance. PSYCHIATRIC: No history of anxiety or depression no history of homicidal or suicidal ideation. Hematological: No history of clotting disorders. No history of bleeding diathesis although he had bleeding with Coumadin. No blood dyscrasias. VASCULAR: No history of calf or buttock claudication. No history of DVT. PHYSICAL EXAMINATION: The patient is well-built and well-nourished. In no acute distress. He is well-groomed. 01/06/19 15:35 Temperature 98.3 F Temperature Axillary Source Pulse Rate 59 L Respiratory 17 Rate Blood Pressure 107/64 Blood Pressure 78 Mean BP Location Left Arm BP Position Supine O2 Sat by Pulse 98 Oximetry Oxygen Delivery Room Air Method HEAD: Head is atraumatic normocephalic. EYES: Pupils are equal round regular reactive to light accommodation. Extraocular movements are normal. There is no clinical pallor. There is no scleral icterus. EARS: External auditory canals are clear. There is no inflammation of the tympanic membrane there is no lesions on the pennae. NOSE: No deviated nasal septum. No inflammation of the nasal mucous membrane. MOUTH: Mucous members of mouth are moist tongue is moist there is no ulcers there is no bleeding from the gums. THROAT: There is no redness of the oropharynx. There is no exudates in the throat. SKIN: There is no petechia or ecchymosis. There is no skin rashes or skin lesions. NECK: Neck is supple there is no JVD carotids are equal there is no bruit. There is no lymphadenopathy there is no goiter. There is no accessory muscles of r espiration in use. Trachea central. LUNGS: Clear to auscultation percussion, without any rhonchi rales or wheezing. There is no chest wall tenderness. HEART: S1-S2 is heard. S1 is of normal intensity. There is no S3 gallop. There is no S4 gallop. There is systolic murmur left sternal border and the apex without radiation. There is no rub. ABDOMEN: Is soft nontender. There is no hepatosplenomegaly, and bowel sounds well heard. There is no rebound guarding or rigidity. There is no masses. EXTREMITIES: Femorals are well felt. There is no femoral bruits. Leg pulses are well felt. There is no pedal edema. There is no DVT or cellulitis. There is no calf tenderness. There is no sinus or clubbing. Capillary refill is normal. PEN RIDER: The patient is conscious awake alert oriented x3 with no focal deficits. PSYCHIATRIC: The patient judgment and insight are intact his affect is normal. Labs- All tests 24 hr 01/05/19 01/05/19 01/05/19 21:09 21:09 21:09 WBC 6.4 RBC 5.19 Hgb 16.4 Hct 48.3 MCV 93 MCH 31.6 MCHC 34.0 RDW 13.5 Plt Count 217 Lymph % (Auto) 28.9 [place] % (Auto) 15.9 H Eos % (Auto) 5.1 Baso % (Auto) 1.0 Absolute Neuts (auto) 3.1 Absolute Lymphs (auto) 1.8 Absolute Monos (auto) 1.0 Absolute Eos (auto) 0.3 Absolute Basos (auto) 0.1 Seg Neutrophils % 49.1 PT 13.8 INR 1.06 Sodium 144.9 Potassium 4.1 Chloride 108 H Carbon Dioxide 25 Anion Gap 12 BUN 20 Creatinine 1.01 Est GFR ( Amer) > 60 Est GFR (MDRD) Non-Af > 60 Glucose 116 H Calcium 9.6 Magnesium Total Bilirubin 0.7 Direct Bilirubin 0.1 Neonat Total Bilirubin Not Reportable Neonat Direct Bilirubin Not Reportable Neonat Indirect Bili Not Reportable AST 32 ALT 21 Alkaline Phosphatase 78 Creatine Kinase 222 H CK-MB (CK-2) Troponin I Total Protein 8.1 Albumin 4.5 Triglycerides Cholesterol LDL Cholesterol Direct VLDL Cholesterol HDL Cholesterol TSH Free T4 Free T3 pg/mL 01/05/19 01/05/19 01/05/19 21:09 23:40 23:40 WBC RBC Hgb Hct MCV MCH MCHC RDW Plt Count Lymph % (Auto) [place] % (Auto) Eos % (Auto) Baso % (Auto) Absolute Neuts (auto) Absolute Lymphs (auto) Absolute Monos (auto) Absolute Eos (auto) Absolute Basos (auto) Seg Neutrophils % PT INR Sodium Potassium Chloride Carbon Dioxide Anion Gap BUN Creatinine Est GFR ( Amer) Est GFR (MDRD) Non-Af Glucose Calcium Magnesium Total Bilirubin Direct Bilirubin Neonat Total Bilirubin Neonat Direct Bilirubin Neonat Indirect Bili AST ALT Alkaline Phosphatase Creatine Kinase 174 H CK-MB (CK-2) 2.75 2.36 Troponin I < 0.012 0.019 Total Protein Albumin Triglycerides Cholesterol LDL Cholesterol Direct VLDL Cholesterol HDL Cholesterol TSH Free T4 Free T3 pg/mL 01/06/19 01/06/19 01/06/19 05:43 05:43 05:43 WBC 5.5 RBC 4.43 Hgb 13.9 D Hct 40.8 MCV 92 MCH 31.4 MCHC 34.0 RDW 13.2 Plt Count 175 Lymph % (Auto) [place] % (Auto) Eos % (Auto) Baso % (Auto) Absolute Neuts (auto) Absolute Lymphs (auto) Absolute Monos (auto) Absolute Eos (auto) Absolute Basos (auto) Seg Neutrophils % PT INR Sodium 142.7 Potassium 4.0 Chloride 111 H Carbon Dioxide 24 Anion Gap 8 BUN 18 Creatinine 0.87 Est GFR ( Amer) > 60 Est GFR (MDRD) Non-Af > 60 Glucose 94 Calcium 8.9 Magnesium 2.0 Total Bilirubin Direct Bilirubin Neonat Total Bilirubin Neonat Direct Bilirubin Neonat Indirect Bili AST ALT Alkaline Phosphatase Creatine Kinase 150 CK-MB (CK-2) 1.79 Troponin I < 0.012 Total Protein Albumin Triglycerides 86 Cholesterol 154.83 LDL Cholesterol Direct 114 H VLDL Cholesterol 17.0 HDL Cholesterol 30 L TSH Free T4 Free T3 pg/mL 01/06/19 01/06/19 01/06/19 05:43 12:08 12:08 WBC RBC Hgb Hct MCV MCH MCHC RDW Plt Count Lymph % (Auto) [place] % (Auto) Eos % (Auto) Baso % (Auto) Absolute Neuts (auto) Absolute Lymphs (auto) Absolute Monos (auto) Absolute Eos (auto) Absolute Basos (auto) Seg Neutrophils % PT INR Sodium Potassium Chloride Carbon Dioxide Anion Gap BUN Creatinine Est GFR ( Amer) Est GFR (MDRD) Non-Af Glucose Calcium Magnesium Total Bilirubin Direct Bilirubin Neonat Total Bilirubin Neonat Direct Bilirubin Neonat Indirect Bili AST ALT Alkaline Phosphatase Creatine Kinase 139 CK-MB (CK-2) 1.42 Troponin I < 0.012 Total Protein Albumin Triglycerides Cholesterol LDL Cholesterol Direct VLDL Cholesterol HDL Cholesterol TSH 3.00 Free T4 0.95 Free T3 pg/mL 3.82 Chest X-Ray 01/05/19 20:55 IMPRESSION: No acute abnormality is identified. Hiatal hernia EKG:ATRIAL FIBRILLATION [SDPRR] . ST DEPRESSION, PROBABLY RATE RELATED [LQT] . PROLONGED QT INTERVAL. SUBSEQUENT EKG: Sinus bradycardia within normal limits. IMPRESSION/RECOMMENDATION: 1. Paroxysmal atrial fibrillation. At present patient sinus rhythm. In view of the patient's contraindication for anticoagulation, will continue patient on aspirin, will see if we can increase the sotalol dose, if due to bradycardia I am unable to increase dose, will continue the patient at current dose since the patient did miss a dose of sotalol which precipitated this episode of recurrence of atrial fibrillation. 2. Hypertension well controlled. Continue current antihypertensives. 3. Note that the patient has contraindication for anticoagulation. Hence will try to keep the patient in sinus rhythm on sotalol. Sotalol has been chosen since this is cheaper and has lesser side effects than amiodarone. [We will see if we can increase the dose of sotalol if the heart rate permits]. 4. Hyperlipidemia. Continue statin The patient will be ambulated. Medications reviewed. Medications adjusted. Management plan and medical regimen discussed with the attending physician on the case. Discussed with the patient also. Medical decision making is of moderate to high complexity. 60 minutes spent as patient with more than 50% time spent in direct patient care. Will follow
[2019-01-07 05:17] LABS: HEMATOCRIT 39.7 % (37.9-51.0); HEMOGLOBIN 13.5 g/dL (13.5-17.0); MEAN CORPUSCULAR HEMOGLOBIN 31.2 pg (27.0-33.4); MEAN CORPUSCULAR HGB CONC 33.9 g/dL (32.0-36.0); MEAN CORPUSCULAR VOLUME 92 fl (80-97); PLATELET COUNT 173 10^3/uL (150-450); RED BLOOD COUNT 4.32 10^6/uL (4.35-5.55); RED CELL DISTRIBUTION WIDTH 12.9 % (11.5-14.0); WHITE BLOOD COUNT 5.2 10^3/uL (4.0-10.5)
[2019-01-07] MEDS: HEPARIN SOD (PORCINE) 5,000 UNIT/ML 1 ML VIAL SUBCUT SCH (05:40)
[2019-01-07] MEDS ORDERED: SOTALOL HCL 80 MG TABLET PO SCH ×2 (10:30→18:00)
[2019-01-07] MEDS: FAMOTIDINE 20 MG TABLET PO SCH (10:43)
[2019-01-07] MEDS: DOCUSATE SODIUM 100 MG CAPSULE PO SCH (10:43)
--- NOTE | 2019-01-07 12:09 | EKG REPORT ---
SEVERITY:- NORMAL ECG - SINUS RHYTHM : Confirmed by: Stan Masters 07-Jan-2019 12:08:51
--- NOTE | 2019-01-07 12:09 | EKG REPORT ---
SEVERITY:- ABNORMAL ECG - SINUS RHYTHM MULTIPLE ATRIAL PREMATURE COMPLEXES : Confirmed by: tSan Masters 07-Jan-2019 12:08:45
[2019-01-07 14:48] VITALS: BP 110/78
--- NOTE | 2019-01-07 15:00 | PDOC DISCHARGE SUMMARY ---
Impression - Admit/DC Date/PCP Admission Date/Primary Care Provider: 01/05/19 23:07 TIAGO LUNA NP Discharge Date: 01/07/19 - Discharge Diagnosis (1) Atrial fibrillation with RVR Is this a current diagnosis for this admission?: Yes (2) Chronic obstructive pulmonary disease (COPD) Is this a current diagnosis for this admission?: Yes (3) HLD (hyperlipidemia) Is this a current diagnosis for this admission?: Yes (4) HTN (hypertension) Is this a current diagnosis for this admission?: Yes - Assessment Summary: Patient will be admitted to telemetry on the [facility]. He will receive routine supportive and symptomatic cares. He will be treated with a diltiazem infusion adjusted to control his atrial fibrillation at a rate less than 120. He will be seen in consultation by Dr. Bell in the morning. He will use morphine sulfate 2 to 4 mg IV every 2 hours on an as-needed basis for control of chest pain. He will be continued on his usual medications for his chronic medical illnesses as soon as his medical reconciliation can be verified. CBC, metabolic profile and magnesium level will be checked in the morning as well his lipid profile and a TSH. 01/06/2019 Currently no chest pain no shortness of breath Patient's vital signs are stable temperature 97.3. Since 0200 this morning patient's pulse changed from 109 down to 90 and has been stable at 90 ever since. Patient is still on Cardizem drip this is being weaned Patient's blood pressures had been slightly low earlier but have since stabilized Troponin x3 is negative TSH is normal at 3.0 Cardiology to see today and advise. Patient has been changed to an outpatient status 01/07/2019 Patient was seen by cardiology both yesterday and today. He has been discharged on Betapace 80 mg in the morning 40 mg at night Patient is having no chest pain no shortness of breath. She was told to return to the adjustment supervisor in the next 5 to 7 days Patient thinks he actually went into atrial fib due to him not taking his medicine for 48 hours, states "I forgot" - Additional Information Resuscitation Status: Full Code Discharge Diet: Cardiac Discharge Activity: Activity As Tolerated Referrals: TIAGO LUNA NP [Primary Care Provider] - Follow up as needed Prescriptions: Sotalol HCl [Betapace 80 mg Tablet] 40 mg PO BID #60 Home Medications: Atorvastatin Calcium [Lipitor 10 mg Tablet] 10 mg PO QHS 01/06/19 Fluoxetine HCl [Prozac] 10 mg PO DAILY 01/06/19 Lisinopril [Prinivil] 20 mg PO DAILY 01/06/19 Sotalol HCl [Betapace 80 mg Tablet] 40 mg PO BID #60 01/07/19 History of Present Illiness History of Present Illness: JOVAN GRIDER JR is a 63 year old male Physical Exam Vital Signs: Temp Pulse Resp BP Pulse Ox 97.4 F 114 H 17 110/78 95 01/07/19 14:45 01/07/19 14:45 01/07/19 14:45 01/07/19 14:45 01/07/19 14:45 Intake & Output 01/06/19 01/07/19 01/08/19 06:59 06:59 06:59 Intake Total 1001 1705 Output Total 0 Balance 1001 1705 Weight 101 kg 103.3 kg Results Laboratory Results: WBC 5.2 10^3/uL (4.0-10.5) 01/07/19 04:18 RBC 4.32 10^6/uL (4.35-5.55) L 01/07/19 04:18 Hgb 13.5 g/dL (13.5-17.0) 01/07/19 04:18 Hct 39.7 % (37.9-51.0) 01/07/19 04:18 MCV 92 fl (80-97) 01/07/19 04:18 MCH 31.2 pg (27.0-33.4) 01/07/19 04:18 MCHC 33.9 g/dL (32.0-36.0) 01/07/19 04:18 RDW 12.9 % (11.5-14.0) 01/07/19 04:18 Plt Count 173 10^3/uL (150-450) 01/07/19 04:18 Lymph % (Auto) 28.9 % (13-45) 01/05/19 21:09 [place] % (Auto) 15.9 % (3-13) H 01/05/19 21:09 Eos % (Auto) 5.1 % (0-6) 01/05/19 21:09 Baso % (Auto) 1.0 % (0-2) 01/05/19 21:09 Absolute Neuts (auto) 3.1 10^3/uL (1.7-8.2) 01/05/19 21:09 Absolute Lymphs (auto) 1.8 10^3/uL (0.5-4.7) 01/05/19 21:09 Absolute Monos (auto) 1.0 10^3/uL (0.1-1.4) 01/05/19 21:09 Absolute Eos (auto) 0.3 10^3/uL (0.0-0.6) 01/05/19 21:09 Absolute Basos (auto) 0.1 10^3/uL (0.0-0.2) 01/05/19 21:09 Seg Neutrophils % 49.1 % (42-78) 01/05/19 21:09 PT 13.8 SEC (11.4-15.4) 01/05/19 21:09 INR 1.06 01/05/19 21:09 Sodium 142.7 mmol/L (137-145) 01/06/19 05:43 Potassium 4.0 mmol/L (3.6-5.0) 01/06/19 05:43 Chloride 111 mmol/L (98-107) H 01/06/19 05:43 Carbon Dioxide 24 mmol/L (22-30) 01/06/19 05:43 Anion Gap 8 (5-19) 01/06/19 05:43 BUN 18 mg/dL (7-20) 01/06/19 05:43 Creatinine 0.87 mg/dL (0.52-1.25) 01/06/19 05:43 Est GFR ( Amer) > 60 (>60) 01/06/19 05:43 Est GFR (MDRD) Non-Af > 60 (>60) 01/06/19 05:43 Glucose 94 mg/dL (75-110) 01/06/19 05:43 Calcium 8.9 mg/dL (8.4-10.2) 01/06/19 05:43 Magnesium 2.0 mg/dL (1.6-2.3) 01/07/19 04:18 Total Bilirubin 0.7 mg/dL (0.2-1.3) 01/05/19 21:09 Direct Bilirubin 0.1 mg/dL (0.0-0.4) 01/05/19 21:09 Neonat Total Bilirubin Not Reportable 01/05/19 21:09 Neonat Direct Bilirubin Not Reportable 01/05/19 21:09 Neonat Indirect Bili Not Reportable 01/05/19 21:09 AST 32 U/L (17-59) 01/05/19 21:09 ALT 21 U/L (<50) 01/05/19 21:09 Alkaline Phosphatase 78 U/L (38-126) 01/05/19 21:09 Creatine Kinase 139 U/L (55-170) 01/06/19 12:08 CK-MB (CK-2) 1.42 ng/mL (<4.55) 01/06/19 12:08 Troponin I < 0.012 ng/mL 01/06/19 12:08 Total Protein 8.1 g/dL (6.3-8.2) 01/05/19 21:09 Albumin 4.5 g/dL (3.5-5.0) 01/05/19 21:09 Triglycerides 86 mg/dL (<150) 01/06/19 05:43 Cholesterol 154.83 mg/dL (0-200) 01/06/19 05:43 LDL Cholesterol Direct 114 mg/dL (<100) H 01/06/19 05:43 VLDL Cholesterol 17.0 mg/dL (10-31) 01/06/19 05:43 HDL Cholesterol 30 mg/dL (>40) L 01/06/19 05:43 TSH 3.00 uIU/mL (0.47-4.68) 01/06/19 05:43 Free T4 0.95 ng/dL (0.78-2.19) 01/06/19 05:43 Free T3 pg/mL 3.82 pg/mL (2.77-5.27) 01/06/19 05:43 01/05/19 01/05/19 01/06/19 21:09 23:40 05:43 CK-MB (CK-2) 2.75 2.36 1.79 Troponin I < 0.012 0.019 < 0.012 01/06/19 12:08 CK-MB (CK-2) 1.42 Troponin I < 0.012 Impressions: Chest X-Ray 01/05/19 20:55 IMPRESSION: No acute abnormality is identified. Hiatal hernia Stroke Is this a Stroke Patient?: No Acute Heart Failure - Is this a Heart Failure Patient?: No
--- NOTE | 2019-01-07 19:52 | Progress Note ---
Provider Note Provider Note: CARDIOLOGY PROGRESS NOTE by Dr. Janelle Bell on 01/07/2019. SUBJECTIVE: The patient remains in sinus rhythm. He has no chest pain or discomfort. There is no proarrhythmia on sotalol. The patient denies any shortness of breath or PND at or orthopnea. There is no leg edema. There is no TIA CVA symptoms. PHYSICAL EXAMINATION: The patient is well-built and nourished in no acute distress. Selected Entries 01/07/19 01/07/19 10:00 14:45 Temperature 97.4 F Pulse Rate 84 H Respiratory 17 Rate Blood Pressure 110/78 [Left Upper Arm ] O2 Sat by Pulse 95 Oximetry Oxygen Delivery Room Air Method ( includes room air) HEAD: Head is atraumatic normocephalic. EYES: Pupils are equal round regular reactive to light accommodation. Extraocular movements are normal. There is no clinical pallor. There is no scleral icterus. EARS: External auditory canals are clear. There is no inflammation of the tympanic membrane there is no lesions on the pennae. NOSE: No deviated nasal septum. No inflammation of the nasal mucous membrane. MOUTH: Mucous members of mouth are moist tongue is moist there is no ulcers there is no bleeding from the gums. THROAT: There is no redness of the oropharynx. There is no exudates in the throat. SKIN: There is no petechia or ecchymosis. There is no skin rashes or skin lesions. NECK: Neck is supple there is no JVD carotids are equal there is no bruit. There is no lymphadenopathy there is no goiter. There is no accessory muscles of respiration in use. Trachea central. LUNGS: Clear to auscultation percussion, without any rhonchi rales or wheezing. There is no chest wall tenderness. HEART: S1-S2 is heard. S1 is of normal intensity. There is no S3 gallop. There is no S4 gallop. There is systolic murmur left sternal border and the apex without radiation. There is no rub. ABDOMEN: Is soft nontender. There is no hepatosplenomegaly, and bowel sounds well heard. There is no rebound guarding or rigidity. There is no masses. EXTREMITIES: Femorals are well felt. There is no femoral bruits. Leg pulses are well felt. There is no pedal edema. There is no DVT or cellulitis. There is no calf tenderness. There is no sinus or clubbing. Capillary refill is normal. CHOKE SETTER: The patient is conscio us awake alert oriented x3 with no focal deficits. PSYCHIATRIC: The patient judgment and insight are intact his affect is normal. EKG: Sinus bradycardia. APCs. QTC is 414. Labs- All tests 24 hr 01/07/19 01/07/19 04:18 04:18 WBC 5.2 RBC 4.32 L Hgb 13.5 Hct 39.7 MCV 92 MCH 31.2 MCHC 33.9 RDW 12.9 Plt Count 173 Magnesium 2.0 Chest X-Ray 01/05/19 20:55 IMPRESSION: No acute abnormality is identified. Hiatal hernia IMPRESSION/RECOMMENDATION: 1. Paroxysmal atrial fibrillation. Patient now in sinus rhythm. Since there is contraindication for anticoagulation continue aspirin 81 mg p.o. daily. Also would recommend placing the patient sotalol 80 mg in the a.m. and 40 mg in the p.m. Continue his other other medications. The patient will follow-up in the office. 2. Hypertension well controlled. Continue current antihypertensives. 3. Note that the patient has contraindication for anticoagulation. Hence will try to keep the patient in sinus rhythm on sotalol. Sotalol has been chosen since this is cheaper and has lesser side effects than amiodarone. [We will see if we can increase the dose of sotalol if the heart rate permits]. 4. Hyperlipidemia. Continue statin Medications reviewed medications adjusted medication regimen and management plan discussed with the attending provider on the case. Medical decision making is of high complexity. Spent on this patient more than 50% of time spent in direct patient care. Patient's cardiac status is stable. Will sign off. Will follow the patient in the office. Discussed this with the hospitalist attending provider.
== END 2019-01-07 14:45 | disposition home or self-care (01) ==
LOC: ER 20:36 → EH 23:07 → INTOOBSV 23:07 → 3W 01-06 01:21 → 3N 01-06 07:48
PROVIDERS: ADMIT Emergency Medicine; ATTEND Emergency Medicine
DX: I48.0 Paroxysmal atrial fibrillation (principal); J44.9 Chronic obstructive pulmonary disease, unspecified; E78.2 Mixed hyperlipidemia; I10 Essential (primary) hypertension; K44.9 Diaphragmatic hernia without obstruction or gangrene; K21.9 Gastro-esophageal reflux disease without esophagitis; Z79.899 Other long term (current) drug therapy; Z87.11 Personal history of peptic ulcer disease; R94.31 Abnormal electrocardiogram [ECG] [EKG]; Z86.19 Personal history of other infectious and parasitic diseases; Z88.8 Allergy status to other drugs, medicaments and biological substances; Z82.49 Family history of ischemic heart disease and other diseases of the circulatory system; Z87.891 Personal history of nicotine dependence; Z83.2 Family history of diseases of the blood and blood-forming organs and certain disorders involving the immune mechanism; Z86.718 Personal history of other venous thrombosis and embolism
CPT/HCPCS: 93005 ×3; 99285; 96361; 96374; 36415 ×3; 84439; 82553 ×2; 82550 ×2; 83735 ×2; 84443; 85025; 85027 ×2; 85610; 80048; 80053; 84484 ×2; 84481; 80061; 71045; 93010 ×3; G0378 ×3; J1644 ×2; J3490 ×12; J1160; J7030